=== PATIENT | female | born 1955 | race Caucasian/White ===

== ENCOUNTER → 2018-02-20 15:24 | Outpatient (CLI) | payer MEDICARE, MEDICAID, SELFPAY ==
--- NOTE | 2018-02-20 | DI.CT.S_ITS ---
PROCEDURE: CT LUMBAR SPINE WO CON INDICATIONS: ARTHRODESIS STATUS/LEFT FOOT DROP TECHNIQUE: Noncontrast 3 mm thick sections acquired from the T12 level to the sacrum. Sagittal and coronal reformats were constructed. For radiation dose reduction, the following was used: automated exposure control. COMPARISON: [facility], MR, L-SPINE WITHOUT CONTRAST, 07/26/2016, 12:46. [facility], CT, ABDOMEN/PELVIS WITH CONTRAST, 01/15/2017, 13:34. [facility], CR, T AND L SPINE 2 TO 3 VIEWS, 08/17/2017, 15:00. [facility], CR, T AND L SPINE 6 PLUS VIEWS, 08/16/2017, 9:19. FINDINGS: Image quality: Excellent. Bones: No acute vertebral body compression fractures. No suspicious lytic or blastic bony lesions. Central spinal caliber is of normal overall caliber. No pars defects. Thoracolumbar postoperative changes are seen, extending down to S1. The screws appear well placed. There is lucency seen surrounding the S1 screws. No other findings of hardware failure or loosening can be seen. Vertical fixation rods are seen. Disc spacers are seen at the L1-L2, L2-L3, L3-L4, L4-L5, and the L5-S1 levels. The disc space at L5-S1 protrudes posteriorly and on the right, as on series 5 image 20 and on series 2 image 59. The disc spacers otherwise appear well placed. S-shaped scoliotic curvature is seen. The degree of scoliosis appears improved compared to the prior preoperative abdominal CT. T12-L1: Moderate to severe loss of disc height is seen. Vacuum disc phenomenon is seen at this level. Mild generalized disc bulge is seen. L1-L2: Mild disc bulge is seen. No significant neural foraminal or central canal narrowing are seen. L2-L3: There is mild disc bulge at this level. There is moderate bilateral neural foraminal narrowing. [id number] central canal narrowing is seen. L3-L4: Mild disc bulge is seen at this level. There is mild left-sided and no significant right-sided neural foraminal narrowing seen. Mild central canal narrowing is seen. L4-L5: There is moderate disc bulge. There is moderate right-sided and at least moderate left-sided neural foraminal narrowing seen. Likely extruded disc material can be seen within the left lateral recess, with vacuum disc phenomenon. There is at least moderate central canal narrowing. L5-S1: Likely mild disc bulge. There is moderate to severe right-sided neural foraminal narrowing and mild left-sided neural foraminal narrowing. Moderate central canal narrowing is seen. Soft tissues: No retroperitoneal masses or hematomas. Visualized aorta is normal in caliber. Atherosclerotic calcification is noted. IMPRESSION: Extensive postoperative changes are seen. There is screw loosening seen at S1. The disc spacer at the L5-S1 level protrudes posteriorly and on the right. There is likely disc extrusion seen within the left lateral recess at the L4-L5 level. If it would be helpful for clinical management decision making, please consider a dedicated lumbar MRI for further evaluation (assuming that there is no contraindication). Dictated by: Jorge Giraldo M.D. on 02/20/2018 at 15:26 Approved by: Jorge Giraldo M.D. on 02/20/2018 at 15:34
== END ==
PROVIDERS: Visit Provider Orthopaedic Surgery
DX: M21.372 Foot drop, left foot (principal); T85.698A Other mechanical complication of other specified internal prosthetic devices, implants and grafts, initial encounter; Z98.1 Arthrodesis status
CPT/HCPCS: 72131

== ENCOUNTER → 2018-03-18 13:29 | Outpatient (CLI) | payer MEDICARE, MEDICAID, SELFPAY ==
--- NOTE | 2018-03-18 | DI.MRI.S_ITS ---
PROCEDURE: MR LUMBAR SPINE WO/W CON INDICATIONS: IDIOPATHIC SCOLIOSIS OF LUMBAR REGION TECHNIQUE: Noncontrast sagittal T1 spin echo and T2 fast spin echo, sagittal STIR, axial T1 and T2 fast spin echo through the lumbar spine. In cases with scoliosis, additional coronal T2 fast spin echo may be performed. After the administration of contrast, sagittal and axial T1 spin echo with fat saturation through the lumbar spine. COMPARISON: [facility], , L-SPINE WITHOUT CONTRAST, 07/26/2016, 12:46. [facility], CR, XR LUMBAR SPINE 2 OR 3 VIEWS, 02/11/2018, 14:00. FINDINGS: Image quality: Degraded by metallic and motion artifact. Alignment and curvature: 5 lumbar type vertebral bodies are present by plain film. There is mild rightward curvature of the lower lumbar spine mild leftward curvature of the thoracolumbar junction. There is mild grade 1 retrolisthesis of L1 on L2 and L2 on L3. Marrow: Spinal stabilization hardware is seen from T12-S1. Marrow is suboptimally evaluated secondary to metallic artifact, but as visualized, is of normal overall signal. No acute vertebral body compression fractures. No suspicious marrow enhancement. Spinal cord: Conus medullaris is not well seen secondary to motion artifact Visualized spinal cord demonstrates normal signal, without suspicious enhancement. Paraspinous soft tissues: No paravertebral masses or abnormal enhancement. L1-L2: Disc desiccation and mild diffuse disc bulge. Bilateral facet hypertrophy. Decreased, mild canal stenosis. Mild foraminal stenosis bilaterally is unchanged. L2-L3: Mild disc desiccation and diffuse disc bulge. Bilateral facet hypertrophy. Mild canal stenosis. Mild foraminal stenosis bilaterally. No definite change. L3-L4: Disc desiccation. Bilateral facet hypertrophy. No definite canal, nor foraminal stenosis. L4-L5: Interbody device. Mild residual diffuse disc bulge. Bilateral facet hypertrophy. Decreased, moderate canal stenosis. Decreased, moderate bilateral foraminal stenosis. L5-S1: Interbody device. Bilateral facet hypertrophy. No definite change in mild to moderate canal stenosis. Foramina are not well seen. IMPRESSION: 1. Limited examination secondary to metallic and motion artifact. 2. Status post interval thoracolumbar spinal stabilization surgery. 3. Multilevel degenerative disc and facet disease, causing multilevel canal and foraminal stenoses as described above. No evidence of acute process. Dictated by: Michelle Cerda M.D. on 03/18/2018 at 15:48 Approved by: Michelle Cerda M.D. on 03/18/2018 at 15:53
== END ==
PROVIDERS: PCP Family Medicine; Visit Provider Orthopaedic Surgery
DX: M51.36 Other intervertebral disc degeneration, lumbar region (principal); M41.26 Other idiopathic scoliosis, lumbar region; M48.061 Spinal stenosis, lumbar region without neurogenic claudication; M48.07 Spinal stenosis, lumbosacral region
CPT/HCPCS: 72158; A9579

== ENCOUNTER 2018-05-21 10:43 | Inpatient (IN) | payer MEDICARE, MEDICAID, SELFPAY ==
[2018-05-08 10:56] VITALS: BMI 36.6
[2018-05-21] VITALS (15 sets, daily range): BP systolic 112–171; BP diastolic 61–101; PULSE 72–108; RESP 12–20; TEMP 36.3–36.9; O2SAT 93–98; BMI 36.6
--- NOTE | 2018-05-21 | PATH_ITS ---
[facility] Accession Number: [id number] . 01 Material submitted: . LUMBAR . 01 Clinical history: . FACET CYST . 01 Diagnosis: Lumbar Facet Cyst, Biopsy: Fragments of bone and fibroconnective disc tissue with extensive elastic degenerative changes. Unremarkable marrow also present. Negative for malignancy. MRV/05/27/2018 . 01 Comment: As part of ongoing quality control lead, this case has also been reviewed by Dr. Isaura Patrick, who concurs with the diagnosis. . 01 Electronically signed: . Gardenia Ma MD, Pathologist NPI- [id number] . 01 Gross description: . Received in formalin, labeled lumbar facet cyst, are multiple fragments of pratt-membreno soft tissue (2.2 x 1.5 x 0.4 cm in aggregate). Entirely submitted in cassette A1. ([id number]) /[facility] . 01 Pathologist provided ICD-10: M51.36 . 01 CPT . 573557 Specimen Comment: A duplicate report has been generated due to demographic updates. Performed at: [facility] [address] [place] [address], [place], [place] [id number] MD Krishan Emmanuel MD Phone: [phone]
--- NOTE | 2018-05-21 | DI.RAD.S_ITS ---
PROCEDURE: XR LUMBAR SPINE 2-3V INDICATIONS: L5- S1 LAMINECTOMY TECHNIQUE: 2 views of the lumbar spine were acquired. COMPARISON: [facility], CR, XR LUMBAR SPINE 2 OR 3 VIEWS, 12/05/2017, 13:10. [facility], CR, XR LUMBAR SPINE 2 OR 3 VIEWS, 02/11/2018, 14:00. FINDINGS: Bones: Prior extensive spine fusion devices are again seen with bilateral pedicle screws and vertical fixation rods, and interbody disc prosthesis and cage disc prosthesis. A ractures involving the vertical fixation rods at the L4-5, seen on the frontal projection. Mild malalignment of along the vertical fixation rods bilaterally is present, by a full shaft width. Soft tissues: Overlying bowel gas pattern is normal. No suspicious soft tissue calcifications. IMPRESSION: Extensive prior spine fusion, with newly identified bilateral vertical fixation ana fractures shifted to each laterally, by a full shaft width, at the L4-L5 axial level. Dictated by: Fadi Moe M.D. on 05/21/2018 at 15:40 Approved by: Fadi Moe M.D. on 05/21/2018 at 15:45
[2018-05-21] MEDS: LACTATED RINGERS 1,000 ML 42 ML IV ×3 (11:20→15:32)
--- NOTE | 2018-05-21 12:07 | PM.PREOP ---
Pre-operative Note Interval Note Pre-op Check: Yes History & Physical Reviewed by Physician and Yes Exam Performed Changes: No
--- NOTE | 2018-05-21 12:48 | P.OP_ITS ---
Operative Date/Time/Diagnoses Date of procedure: 05/21/18 Time of procedure: 15:36 Pre-op diagnosis: Intracanal, extradural lumbar facet cyst Lumbar stenosis with radiculopathy Lumbar fusion pseudoarthrosis Post-op diagnosis: same Procedure & Clinicians Procedure: L5-S1 hardware exchange L5-S1 posterior fusion Iliac crest bone graft aspirate Revision left L5-S1 laminectomy with cyst excision Same procedure as scheduled: Yes Indications: 63-year-old female 9 months after an extensive scoliosis fusion. She presented with acute left footdrop and pain imaging showed a large facet cyst as well as nonunion at L5-S1. This felt she would benefit from cyst excision as well as revision of the hardware and refusion. Risks and benefits of surgery discussed appropriate consents obtained. Surgeon: Sincere Hawley Public Relations Representative: Johanna Zamarripa Anesthesia Type: General Operative Notes Findings: none Closure Type: primary Implants & Drains: NuVasive MAS reline Applied: catheter Estimated Blood Loss (mL): 20 Blood products transfused: none Procedure in detail: Patient was brought to the operating room and intubated on the table. They were rolled over on the well-padded prone position on the Earl table. A time-out was performed. Preoperative antibiotics were given. The back was prepped and draped in standard sterile fashion. We went through the bottom of her well-marked left-sided incision. We opened this up 4 cm. We used Bovie to clear around the soft tissue and expose the L4, L5, and S1 screws. We used the ana cutting bur to cut through the ana between L4 and L5. The set screws were then removed. The L5 screw was solid but the S1 was grossly loose. We then placed a blade retractor over the L5 screw. We removed the loose S1 screw over a guidewire. We tapped and then placed a 8.5 mm screw back in the S1 hole with a good fit. This was done with neural monitoring and fluoroscopy. We opened up the retractor blades and cleared off the soft tissue. The gutter was cleared out and the sacral ala and L5 transverse process were decorticated with a bur. We cleared the soft tissue medially and exposed the lamina. We then brought in the microscope. A revision left-sided laminectomy was performed at L5-S1 with a bur and Kerrison rongeurs. There was a large cyst from the L4-5 level down to the L5 foramen. This was carefully dissected off the dura and removed piecemeal until there was no further pressure on the dura. The dura gradually refilled. We could move a ball probe out through the foramen and up underneath the lamina above and everything was opened. Cyst tissue was sent off to pathology. The wound was irrigated. We primed epidural catheter with 8 mL of 0.25% Marcaine and 100 mcg of fentanyl. This was carefully slid up underneath the L4 lamina without resistance. The Tulip head was placed on the screw. A ana was placed into L5 and S1 and locked down. A small stab incision was made over the PSIS. We placed a Jamshidi needle down into the pelvis and aspirated 3 cc of bone marrow and combined this with Osteocel and placed in the posterolateral gutter for the fusion. The wound was irrigated. The fascia was closed. We then injected the epidural catheter without resistance. It was pulled. We then opened up the bottom 4 cm on the right-hand side as I felt should get better stability with a new screw on this side as well. We exposed until we had the screws. Again we cut through the ana between L4 and L5. The ana was removed. The L5 screw felt a little bit loose. We changed out the S1 and L5 screws over guidewires using fluoroscopy and neural monitoring. This was also changed out to an 8.5 mm screw. A new ana was placed and locked down at L5-S1. We also placed bone graft out the posterolateral gutter after decorticating the gutter. The wound was irrigated. The fascia was closed. Vancomycin powder was placed in the wounds. The superficial and skin were closed. A sterile dressing was placed. She was then rolled over, extubated, and brought to recovery with no complications. Complications: none Condition: stable Disposition: PACU Plan for aftercare: Inpatient. Up with therapy.
[2018-05-21] MEDS: CEFAZOLIN 2 GM/100 ML FROZ.PIGGY IV ×2 (12:56→18:41)
--- NOTE | 2018-05-21 13:41 | SUR.OPER ---
Prone on spine table, head in foam head support, padded chest and pelvic supports, gel pad at knees, lower legs supported by pillows; nipples, genitalia and toes free of pressure, arms secured on foam padded arm boards at <90 degrees abduction. Tape over blanket at thigh secured to table.
[2018-05-21] MEDS: SODIUM CHLORIDE 0.9% 1,000 ML, GENTAMICIN 80 MG IRR (13:55)
[2018-05-21] MEDS: BUPIVACAINE 0.5% (PF) VIAL 30 ML INJ (14:00)
[2018-05-21] MEDS: BUPIVACAINE 0.25% (PF) VIAL 30 ML INJ (14:26)
[2018-05-21] MEDS: fentaNYL 100 MCG/2 ML INJ 25 MCG IV (14:31)
[2018-05-21] MEDS: VANCOMYCIN 1,000 MG VIAL 1000 MG TOP (15:28)
[2018-05-21] MEDS: BUPIVACAINE 0.5% W/ EPI (PF) VIAL 30 ML INJ (15:29)
[2018-05-21] MEDS: HYDROMORPHONE 2 MG INJ 0.5 MG IV ×7 (16:10→16:40)
[2018-05-21] MEDS: LORazepam 2 MG/ML SYRINGE 0.25 MG IV ×2 (16:15→16:21)
[2018-05-21] MEDS: LACTATED RINGERS 1,000 ML 125 ML IV (18:02)
--- NOTE | 2018-05-21 19:06 | PC.NURSE ---
PATIENT VERY DROWSEY,1L
--- NOTE | 2018-05-21 19:06 | PC.NURSE ---
DRSG TO BACK CDI,LOG ROLL TO SIDE,IV FLUIDS INFUSING,ANTIBIOTICS INFUSING.FEET SCDS IN PLACE ACTIVE,SLEEPING ON/OFF TAKING ICE/WATER WITHOUT NAUSEA.
[2018-05-21] MEDS: OXYCODONE/ACETAMINOPHEN 5/325 TABLET 2 TAB PO (19:26)
[2018-05-21] MEDS: ALPRAZolam 0.5 MG TABLET PO (19:26)
[2018-05-21] MEDS: hydrOXYzine pamoate 25 MG CAPSULE PO (19:26)
[2018-05-21] MEDS: DOCUSATE 100 MG CAPSULE PO (19:27)
[2018-05-21] MEDS: ATORVASTATIN 20 MG TABLET 80 MG PO (19:27)
[2018-05-21] MEDS: GABAPENTIN 600 MG TABLET PO (19:27)
[2018-05-21] MEDS: SENNOSIDES 8.6 MG TABLET 17.2 MG PO (19:28)
[2018-05-21] MEDS: HYDROXYCHLOROQUINE 200 MG TABLET 400 MG PO (19:29)
[2018-05-22] VITALS (8 sets, daily range): BP systolic 96–144; BP diastolic 55–75; PULSE 70–83; RESP 14–18; TEMP 36.5–36.9; O2SAT 93–97
[2018-05-22] MEDS: CEFAZOLIN 2 GM/100 ML FROZ.PIGGY IV (01:18)
[2018-05-22] MEDS: OXYCODONE/ACETAMINOPHEN 5/325 TABLET 2 TAB PO ×3 (01:26→10:30)
[2018-05-22] MEDS: hydrOXYzine pamoate 25 MG CAPSULE PO ×4 (01:26→22:46)
[2018-05-22] MEDS: LACTATED RINGERS 1,000 ML 125 ML IV (02:12)
[2018-05-22 06:07] LABS: Hematocrit 35.7 % (36-46); Hemoglobin 11.6 g/dL (12.0-16.0)
[2018-05-22] MEDS: CHLORTHALIDONE 25 MG TABLET PO (08:09)
[2018-05-22] MEDS: CHOLECALCIFEROL (VITAMIN D3) 1,000 UNIT TABLET 4000 UNIT PO (08:10)
[2018-05-22] MEDS: CITALOPRAM 20 MG TABLET PO (08:11)
[2018-05-22] MEDS: MELOXICAM 7.5 MG TABLET PO (08:12)
[2018-05-22] MEDS: FLUTICASONE 120 SPRAY/16 GM SPRAY.SUSP NASAL (08:13)
[2018-05-22] MEDS: GABAPENTIN 600 MG TABLET PO ×3 (08:13→20:18)
[2018-05-22] MEDS: predniSONE 2.5 MG TABLET PO (08:14)
[2018-05-22] MEDS: POTASSIUM CHLORIDE 20 MEQ TAB PO (08:15)
[2018-05-22] MEDS: LEFLUNOMIDE 20 MG TABLET PO (08:17)
[2018-05-22] MEDS: METOPROLOL ER 25 MG TABLET PO (08:17)
[2018-05-22] MEDS: LISINOPRIL 5 MG TABLET 2.5 MG PO (08:18)
--- NOTE | 2018-05-22 08:22 | PM.PNPO.1 ---
Subjective Date Patient Seen: 05/22/18 Time Patient Seen: 08:23 Interval history: Patient is postop day 1 status post L5-S1 posterior fusion/lami and hardware exchange by Dr. Hawley. States he is doing well but is having pain in the back area. Currently receiving oxycodone as needed for pain and is about to get a shot of Dilaudid for breakthrough pain. States that she has some numbness in bilateral feet left worse than right. She also has a left footdrop. Exam Vital Signs (past 8 hours): - 05/22/18 05:55 05/22/18 06:04 Temperature 97.7 F Pulse Rate 74 Respiratory Rate 16 Blood Pressure 107/60 Pulse Oximetry 94 96 Oxygen Delivery Method Nasal Cannula Oxygen Flow Rate 0 Narrative Exam Narrative: Patient in bed. Alert orient x3. Dressing clean dry and intact. 5/5 right ankle strength. Left foot can plantar flex but not dorsiflex. Left toe cannot dorsiflex. Numbness bilateral feet. Barahona catheter in. Objective Labs Result Diagrams: 05/22/18 05:31 Labs: Laboratory Results - last 24 hr 05/22/18 05:31 Hgb 11.6 L Hct 35.7 L Assessment & Plan Post-op Postoperative Procedures Operation Date: 05/21/18 12:15 Actual Procedures Side Surgeon p Revision left L5-S1 laminectomy, Revision of screws on left at L5-S1 w/Refusion at this level with bone graft Sincere Hawley MD Postop day 1. Patient mobilized with physical therapy today. She may need a AFO brace to help with foot drop. DC Barahona when more mobile. Continue pain medication as needed. Patient would like to go to [facility] after discharge from the hospital for further therapy and care. She does not have help at home. She went to [facility] after her previous back surgeries. Quality VTE Deep Vein Thrombosis/Pulmonary Embolism Present on Admission: No
--- NOTE | 2018-05-22 08:28 | P.PN_ITS ---
Subjective Date Patient Seen: 05/22/18 Time Patient Seen: 08:23 Interval history: Patient is postop day 1 status post L5-S1 posterior fusion/ lami and hardware exchange by Dr. Hawley. States he is doing well but is having pain in the back area. Currently receiving oxycodone as needed for pain and is about to get a shot of Dilaudid for breakthrough pain. States that she has some numbness in bilateral feet left worse than right. She also has a left footdrop. Exam Vital Signs (past 8 hours): - 05/22/18 05:55 05/22/18 06:04 Temperature 97.7 F Pulse Rate 74 Respiratory Rate 16 Blood Pressure 107/60 Pulse Oximetry 94 96 Oxygen Delivery Method Nasal Cannula Oxygen Flow Rate 0 Narrative Exam Narrative: Patient in bed. Alert orient x3. Dressing clean dry and intact. 5/5 right ankle strength. Left foot can plantar flex but not dorsiflex. Left toe cannot dorsiflex. Numbness bilateral feet. Barahona catheter in. Objective Labs Result Diagrams: 05/22/18 05:31 Labs: Laboratory Results - last 24 hr 05/22/18 05:31 Hgb 11.6 L Hct 35.7 L Assessment & Plan Post-op Postoperative Procedures Operation Date: 05/21/18 12:15 Actual Procedures Side Surgeon p Revision left L5-S1 laminectomy, Revision of screws on left at L5-S1 w/ Refusion at this level with bone graft Sincere Hawley MD Postop day 1. Patient mobilized with physical therapy today. She may need a AFO brace to help with foot drop. DC Barahona when more mobile. Continue pain medication as needed. Patient would like to go to [facility] after discharge from the hospital for further therapy and care. She does not have help at home. She went to [facility] after her previous back surgeries. Quality VTE Deep Vein Thrombosis/Pulmonary Embolism Present on Admission: No
[2018-05-22] MEDS: ALPRAZolam 0.25 MG TABLET 0.5 MG PO ×2 (08:30→22:45)
[2018-05-22] MEDS: HYDROMORPHONE 1 MG INJ 0.5 MG IV (08:39)
--- NOTE | 2018-05-22 09:24 | CM.DPC ---
Referral faxed to [facility] per [place] for sunday D/C
--- NOTE | 2018-05-22 12:05 | CM.DANOTE ---
DCP/Assessment: Reviewed chart. Patient is a 63yr old female admitted [facility] on 05-21-[address] Hawley. PCP is Dr. Irwin Duong. Primary payor is 1)Medicare 2)Medicaid. Met with patient explained CM/SW role. Patient alert and oriented at time of visit. CHILD DAY CARE PROVIDER spoke with Orthopedic team and it is anticipated that patient will need SNF when medically stable. Patient with PT/OT evaluations pending. Patient reports that she resides alone on [address] in [place]. Patient resides on her ex-'s property with other family on property as well. Patient does have some support but feels like she would benefit from SNF stay. Provided patient with SNF choice list and first choice is [facility]. Placed call to Genie with admit and asked MIKA/Ju to fax for review. Patient eligible for SNF on Sunday05-24-18. Orthopedics updated. Patient also needs to qualify per Medicare guidelines. P: [facility] reviewing for acceptance. Anticipate short SNF stay at [facility] prior to returning home when medically stable. KANDIS Pierce Discharge Planning/Care Management CM Discharge Assessment Start: 05/22/18 12:02 Freq: Status: Active Protocol: Document 05/22/18 12:02 [facility] (Rec: 05/22/18 12:05 [facility] [id number]) Discharge Planning Assessment Assigned Radio Mechanic Apprentice KANDIS Pierce Contact Information Florentin Monsalve (son) [phone] Advance Directives? No: Declines further information History Provided By Patient Has Patient been admitted in last 30 No days? Prior Living Arrangements RV Household Members none Type of transporation used prior to Drives own vehicle admit Independent with ADL's Yes Is patient alert and oriented? Yes Needs Assistance With Home Chores / Shopping Caregiver for Another No DME Already Rented / Owned FWW / Walker Cane Patient/Family Preference [facility] Facility Barriers to Discharge No Discharge Plan [facility] Transportation Arrangement Pending need on day of discharge. Referrals Initiated [facility] Medicare Choice List Provided Yes Contact Name/Phone Genie phone# [phone] Has Agency SNF been contacted Yes Whiteboard Updated in Patient Room with Yes name and ext. # of Radio Mechanic Apprentice Review Status In Process Please Provide Date Initial DC 05/22/18 Assessment Was Performed Next Review Type Continued Stay Review Pre-Anesthesia Assessment Start: 05/08/18 10:56 Freq: Status: Complete Protocol: Document 05/08/18 10:56 [facility] (Rec: 05/08/18 11:31 CAB [id number]) Pre-Anesthesia Assessment Patient Information Reviewed Via Phone Assessment Assessment Completed With Patient Primary Care Provider Irwin Duong Seen Specialist in Last 12 Months Yes Specialist Seen Shear Setter Orthopedist Cycle Manager Comment RA Primary Language [employer] Principal Required No Height 157.48 cm Weight 90.718 kg Body Mass Index (BMI) 36.6 Hearing Ability Normal Visual Impairment No Limitations Visual Assist Magnifying Glass Dentition Type Teeth, Natural Present Teeth, Missing Barriers to Learning Memory Other Aids No Comment Impaired memory at times Hx Anesthesia Reactions No Hx Family Anesthesia Reaction No Hx Malignant Hyperthermia No Hx Blood Transfusions No Anesthesia Review Requested No Tech Intern No alcohol intake former Smoking Status Never smoker Tobacco type cigarettes Smoking packs per day 1.5 how long ago did patient quit smoking Quit age 39 Substance Use Type marijuana Comment Pt advised not smoke marijuana 24 hours prior to surgery Pain Present Pain Reported Musculoskeletal Symptoms Abnormal Gait Back Pain Difficulty Walking Joint Pain Muscle Spasms Muscle Weakness Numbness Radiating Pain into Limb Tingling History of Falling (Recent or History of No ) Patient is completely paralyzed or No completely immobile Prosthesis or Orthotic Device Cane Front Wheel Walker Mental Status Oriented to own ability Comment Left foot drop Is patient on oxygen? No Does patient have HICKS/SOB Yes: With asthma flare-up Hx Sleep Apnea No Suspected Sleep Apnea No Currently Taking a Beta Gisella Yes: Metoprolol Can You Climb a Flight of Stairs Without Yes SOB Hx Chest Pain No Hx SOB Yes: With asthma flare-up Hx Syncope or Dizziness No Anti-Coagulant Therapy No Cardiac Testing Yes: ECHO, NUC 11/15 at Hx Pacemaker/ICD No Pacemaker Rep Required? No Cardiac Clearance Received Not Applicable Diet Type At Home Regular dysphagia No Bladder Pattern Nocturia Urinary Catheter Present No Hx Urinary Self Catheterization No Diabetes No: r/t higher dose of prednisone, PCP states does not have Patient No Lactating No Hx Drug Resistant Organism No Presence of External or Internal Medical No Devices Have you traveled outside the [employer] [place] in the last 30 days? Marital Status Lives With none Prior Living Arrangements RV Number of Stairs To Enter/Railing? 4 steps Support System Child/Children Does the Patient Have Assistance After No: Minimal help available Surgery Patient Discharge Plan Description [facility] Facility[facility] Comment Pt lives on [address], minimal help, would like to go to SNF upon discharge Feels Safe in Current Environment Yes Been Physically Hurt or Threatened By a No Person in Current Environment Do you have thoughts of harming yourself None or others? Do you have a plan to hurt yourself or No Plan others? Do You Have Any Spiritual Beliefs That No May Affect Your HC Choices? Do You Have Any Cultural Practices That No May Affect Your HC Choices? Spiritual Referral In-House Coating Machine Feeder Comment Roman Catholic Who Can We Speak to About Patient's Care Family, friends Identifying Code for Release of Patient Declines to issue Information Health Care Proxy/Next of Kin Monique (daughter) Health Care Proxy Emergency Contact Name Monique (daughter), Jeffery Monsalve (Ex-) Emergency Contact Phone Number Monique: [phone] Jeffery: [phone] Advance Directives? No: Declines further information Power of Design Technology Professor No PAC Instructions Durable medical equipment Medications to take/avoid Nasal antibiotic No ETOH/petroleum product on skin DOS NPO Post-op transportation Pre-surgical wash Sturdy shoes/comfortable clothes Do not bring valuables and remove jewelry
--- NOTE | 2018-05-22 12:24 | DIET.PN ---
Low kevin score of 16 suggests skin at risk. Ate all 1st meal. Morbidly obese. Encouraged high protein diet w/One Ensure Enlive daily.
--- NOTE | 2018-05-22 13:01 | PT.IIE ---
Current Diagnoses Pseudomonas (aeruginosa) (mallei) (pseudomallei) as the cause of diseases classified elsewhere (05/21/18) Spinal stenosis, lumbar region with neurogenic claudication (05/21/18) Unspecified fracture of unspecified lumbar vertebra, subsequent encounter for fracture with nonunion (05/21/18) Surgery Performed Operation Date: 05/21/18 12:15 Actual Procedures p Revision left L5-S1 laminectomy, Revision of screws on left at L5-S1 w/Refusion at this level with bone graft - Sincere Hawley MD Surgical History (Last Updated 05/08/18 @ 11:38 by Jodi Snyder RN) History of lumbar fusion (Acute 08/14/17) Hx of cholecystectomy (Acute ~2012) Hx of thyroidectomy (Acute ~1998) Hx of tubal ligation (Acute) Medical History (Last Updated 05/08/18 @ 12:47 by Jodi Snyder RN) Anxiety (Acute) Asthma (Acute) Chronic back pain (Acute) Depression (Acute) Easy bruisability (Acute) Hyperlipidemia (Acute) Hypothyroidism (Acute) Impaired memory (Acute) Polycythemia vera (Acute) Sciatica (Acute) Physical Therapy Inpatient Evaluation/Re-Eval M1 PT/OT-IP Prior Functional Status Start: 05/22/18 12:37 Freq: NEEDED Status: Active Protocol: Document 05/22/18 09:50 AMB (Rec: 05/22/18 12:59 AMB [email or web address]) Medical Review Prior Functional Status Medical History Reviewed Yes Mobility and Gait Pt used 4WW in the community, SPC and furniture walked at home. Pt had L foot drop prior to this surgery after her scoliosis surgery. Social History Household Members none Living Arrangements RV Number of Stairs To Enter/Railing? 4 steps to enter with a railing, 3 steps from main living to bathroom Home Equipment Four Wheel Walker Straight Cane Additional Social History Comment Pt lives alone in a 5th wheel on her ex-'s property. He would be able to bring her groceries, drive her to MD appointments, but she needs to be able to dress/ bathe herself independently. M2 PT-IP Current Condition Start: 05/22/18 12:37 Freq: NEEDED Status: Active Protocol: Document 05/22/18 09:50 AMB (Rec: 05/22/18 12:59 AMB [email or web address]) Physical Therapy Current Condition Current Condition Evaluation Date 05/22/18 Treatment Diagnosis L5S1 posterior fusion/lami Onset Date 05/21/18 Precautions Lumbar Precautions Log Roll No Twisting Limit Bending Lifting Restriction of 10 lbs Gait Belt above Incisional Area M3 PT-IP Subjective Start: 05/22/18 12:37 Freq: NEEDED Status: Active Protocol: Document 05/22/18 09:50 AMB (Rec: 05/22/18 12:59 AMB [email or web address]) Subjective Physical Therapy Visit Type Type Initial Evaluation Visit Start Time 09:50 Visit Stop Time 10:25 Total Visit Minutes 35 Number of SEALS ENGRAVER Visits 0 Physical Therapy Visit Comments Patient Comments Pt has left low back pain but is willing to get up and mobilize Therapy Pain Assessment Pain When Pain Assessed At Rest Pain Present Pain Present Pain Reported Location Back Intensity 5 Scale Used Numeric (1 - 10) M4 PT-IP Mobility and Gait Start: 05/22/18 12:37 Freq: NEEDED Status: Active Protocol: Document 05/22/18 09:50 AMB (Rec: 05/22/18 12:59 AMB [email or web address]) PT-Bed Mobility Assessment Rolling Type of Rolling Log Rolling Level of Assist Minimal Assistance Supine to Sit Supine to Sit Minimal Assistance Sit to Supine Sit to Supine Minimal Assistance PT-Transfer Assessment Sit to and From Stand Sit to and from Stand Contact Guard Assistance Use of Upper Extremities Equipment Transfer Assistive Device Bed Rail Gait Belt Front Wheeled Walker Transfers Transfer Destination Bed Toilet Transfer Technique Stand Step Pivot Transfer Ability Level of Assist Standby Assistance Comments Mobility Comments Verbal cues for precautions/ body mechanics Gait Assessment Gait Gait Assistance Required: Contact Guard Assist Distance (Feet) 10 Assistive Devices Assistive Device Front Wheeled Walker Gait Deviations General Gait Pattern Antalgic Decreased Stride Length Decreased Feet Clearance Flexed Trunk Lateral Trunk Lean Step-to Gait Factors Limiting Gait Function Factors Limiting Gait Function Decreased Sensation Decreased Strength Pain Poor Balance Comments Gait Comments Pt with forward trunk lean, left drop foot, slow careful gait BP 117/72 HR 85 at rest, denies lightheadedness/ dizziness/nausea with gait. Pain did increase to 7/10 with gait. PT-Balance Assessment Sitting Balance and Reactions Static Sitting Balance Ability Good Dynamic Sitting Balance Ability Good Standing Balance and Reactions Static Standing Balance Ability Fair Dynamic Standing Balance Ability Poor M5 PT-IP Objective Assessments Start: 05/22/18 12:37 Freq: NEEDED Status: Active Protocol: Document 05/22/18 09:50 AMB (Rec: 05/22/18 12:59 AMB [email or web address]) Orientation Orientation/Cognition Level of Alertness Alert Strength Lower Extremity Strength Assessment Left Impaired Comments Strength Comments absent dorsiflexion, pt can plantarflex from neutral, hip flexion less than 2/5 Sensation Assessment Sensation Gross Sensation Left LE Impaired M6 PT-IP Treatment Start: 05/22/18 12:37 Freq: NEEDED Status: Active Protocol: Document 05/22/18 09:50 AMB (Rec: 05/22/18 12:59 AMB [email or web address]) Physical Therapy Treatment Exercises Exercises Ankle Pumps Education Education Provided Precautions Safety M7 PT-IP Assessment and Plan Start: 05/22/18 12:37 Freq: NEEDED Status: Active Protocol: Document 05/22/18 09:50 AMB (Rec: 05/22/18 12:59 AMB [email or web address]) PT Summary Assessment and Plan Potential Rehabilitation Potential Good Status of Condition at Evaluation Evolving Summary Impairments Pain Strength Balance Sensation Bed Mobility Transfers Gait Activity Tolerance Assessment Summary The patient is s/p L5S1 fusion and laminectomy. She developed left foot drop after scoliosis surgery with post op infection requiring IV antibiotics. She required a long SNF stay after that surgery, and will require a SNF stay after this surgery as well considering the number of stairs in her 5th wheel, and that she lives alone. Today she did well, but pain and left LE weakness prior to surgery will limit the speed of her recovery. Goals Bed Mobility Goal Standby Assistance Transfer Goal Independent Gait Goal Standby Assistance Gait Distance 100' Other Goals 4 stairs with 1 rail with SBA Days to Meet Goals 4 Frequency of Treatment Frequency Of Treatment Twice a Day Treatment Plan Physical Therapy Treatment Plan Bed Mobility Training Transfer Training Gait Training Therapeutic Exercise Balance Retraining Post Op Education Hot or Cold Pack Neuromuscular Re-ed Other Recommendations and Next Treatment Progress bed mobility and gait Focus training with focus on good body mechanics Recommendations To Nursing Amount of Assist Needed 1 Person Assist Discharge Recommendations PT Discharge Recommendations SNF Rehab
--- NOTE | 2018-05-22 14:12 | PC.NURSE ---
Dressings lower back surgical site changed this morning to cover sites due to 100% sero-sanguineous drainage saturation.
[2018-05-22] MEDS: HYDROMORPHONE 2 MG TABLET PO (14:16)
--- NOTE | 2018-05-22 14:27 | OT.IP.EVAL ---
Current Diagnoses Pseudomonas (aeruginosa) (mallei) (pseudomallei) as the cause of diseases classified elsewhere (05/21/18) Spinal stenosis, lumbar region with neurogenic claudication (05/21/18) Unspecified fracture of unspecified lumbar vertebra, subsequent encounter for fracture with nonunion (05/21/18) Surgery Performed Operation Date: 05/21/18 12:15 Actual Procedures p Revision left L5-S1 laminectomy, Revision of screws on left at L5-S1 w/Refusion at this level with bone graft - Sincere Hawley MD Past Medical History (Last Updated 05/08/18 @ 12:47 by Jodi Snyder, DIANNE) Anxiety (Acute) Asthma (Acute) Chronic back pain (Acute) Depression (Acute) Easy bruisability (Acute) Hyperlipidemia (Acute) Hypothyroidism (Acute) Impaired memory (Acute) Polycythemia vera (Acute) Sciatica (Acute) Surgical History (Last Updated 05/08/18 @ 11:38 by Jodi Snyder RN) History of lumbar fusion (Acute 08/14/17) Hx of cholecystectomy (Acute ~2012) Hx of thyroidectomy (Acute ~1998) Hx of tubal ligation (Acute) Occupational Therapy Inpatient Evaluation/Re-Eval M1 PT/OT-IP Prior Functional Status Start: 05/22/18 12:37 Freq: NEEDED Status: Active Protocol: Document 05/22/18 14:27 BIBIANA (Rec: 05/22/18 16:51 BIBIANA [email or web address]) Medical Review Prior Functional Status Medical History Reviewed Yes Diet/Fluid Consistency Regular Communication WNL Mobility and Gait Pt used 4WW in the community, SPC and furniture walked in home. Pt has L foot drop that developed after her previous scoliosis surgery in 08/2017. Activities of Daily Living and IADL's Pt was modified independent with all self care using lower body dressing equipt and bathroom safety equipt. Prior Functional Level (Other details) Pt's lives on [address] on ex 's property. Ex and friend assist with grocery shopping and transport. Two sons also live on property and assist with trash removal and propane fillup to pt's 5th wheel trailer. Social History Household Members none Living Arrangements RV Number of Stairs To Enter/Railing? 4 stairs to enter with B rails, and 2-3 stairs up to bedroom area and 2-3 stairs up to bathroom level Home Environment High Toilet Tub/Shower Home Equipment Four Wheel Walker Straight Cane Shower Seat without Backrest Hand Held Shower Long Handled Sponge Long Handled Shoe Horn Exercise Physiology Professor Sock Aid Employment Status Retired Additional Social History Comment Pt lives in 30 ft 5th wheel. M2 OT-IP Current Condition Start: 05/22/18 16:34 Freq: Status: Active Protocol: Document 05/22/18 14:27 PJM (Rec: 05/22/18 16:51 PJM [id number]) Occupational Therapy Current Condition Current Condition Evaluation Date 05/22/18 Treatment Diagnosis decreased self care, mobility s/p L5-S1 hardware exchange, PLIF, cyst excision Diagnosis Onset Date 05/21/18 Post Operative Precautions Lumbar Precautions Log Roll No Twisting Limit Bending Lifting Restriction of 10 lbs Gait Belt above Incisional Area M3 OT- IP Subjective and Pain Start: 05/22/18 16:34 Freq: Status: Active Protocol: Document 05/22/18 14:27 PJM (Rec: 05/22/18 16:51 PJM [email or web address]) OT- Subjective Occupational Therapy Visit Type Type Initial Evaluation Visit Start Time 14:25 Visit Stop Time 14:27 Total Visit Minutes 22 Occupational Therapy Visit Comments Patient Comments I think I need to go to rehab because I have to do a lot of stairs and the grab handles by bedroom and bathroom stairs are hard to use when i am going up. Patient/Caregiver Goals to go home when stronger OT Pain Assessment Pain When Pain Assessed After Treatment Pain Present Pain Present Pain Reported Location Back Intensity 6 Scale Used Numeric (1 - 10) Description Aching Acute M4 OT- IP ADL's Start: 05/22/18 16:34 Freq: Status: Active Protocol: Document 05/22/18 14:27 PJM (Rec: 05/22/18 16:51 PJM [email or web address]) OT [id number] General Evaluation Self-Feeding Ability Independent OT ADL-Grooming General Evaluation Grooming Ability Standby Assistance Areas Needing Assistance Retrieving/Set-up of Grooming Items Comments OT Grooming Comments after set up in bed OT ADL-Oral Care General Eval Oral Care Ability Standby Assistance Areas of Assistance Retrieving/Set-Up of Items Devices Oral Care Devices Toothbrush Comments Oral Care Comments after set up in bed OT ADL-Dressing General Eval Upper Body Dressing Ability Minimal Assistance Lower Body Dressing Ability Maximum Assistance Assistive Devices Dressing Assistive Devices Long Handled Shoe Horn Exercise Physiology Professor Sock Aid Comments OT Dressing Comments Pt needs max assist without AED. Pt states she still has sports manager, sock aid and long shoe horn from last surgery but did not bring them with her. OT ADL-Toileting General Evaluation Toileting Ability Total Assistance Areas Needing Assistance Empty Catheter or Colostomy Comments OT Toileting Comments pt still has garcia in place OT ADL-Bathing Comments OT Bathing Comments to be assessed as activity tolerance improves M5 OT- IP IADL's Start: 05/22/18 16:34 Freq: Status: Active Protocol: Document 05/22/18 14:27 PJM (Rec: 05/22/18 16:51 [facility] [email or web address]) OT-Instrumental Activities of Daily Living Deficits IADL Deficits Identified Deficits Home Safety Awareness Awareness of Need for Assistance at Home Good Awareness Ability to Problem Solve Emergency Able to Problem Solve Situations Medication Management Medication Management No Deficits Identified Money Management Money Management No Deficits Identified Meal Preparation Meal Preparation Caregiver Provides Assist Meal Preparation Comments pt needs assist at present due to low activity tolerance and decreased functional mobility Breaster Breaster Caregiver Provides Assist Breaster Comments pt needs assist at present due to low activity tolerance and decreased functional mobility Driving Driving Caregiver Provides Assist Driving Comments family, friends assist M6 OT- IP Functional Cognition Start: 05/22/18 16:34 Freq: Status: Active Protocol: Document 05/22/18 14:27 PJM (Rec: 05/22/18 16:51 [facility] [email or web address]) Cognitive Factors Limiting Selfcare Function Cognitive Ability Level of Alertness Alert Patient Orientation Name Age Birthday Month Date Year Day of Week Place Situation Attention Span Ability Capable of Focused Attention Ability to Follow Commands Able to Follow One Step Commands Memory Description No Deficits Noted Safety Awareness No Deficits Noted Problem Solving Ability No deficits Noted Cognitive Comments Cognitive Assessment Comments Pt alert and oriented and recalls precautions. OT- Vision and Hearing OT- Vision Assessment Visual Acuity WFL Glasses For Reading Vision Assessment Comments Pt denies any recent changes M7 OT- IP Mobility and Balance Start: 05/22/18 16:34 Freq: Status: Active Protocol: Document 05/22/18 14:27 PJM (Rec: 05/22/18 16:51 [facility] [email or web address]) OT-Transfer Assessment Comments Mobility Comments pt declined OOB this session due to pain level and fatigue OT- Gait Assessment Comments Gait Ability Comments see P.T. notes OT- Balance Assessment Comments Other Balance Tests/Deviations/Treatment see P.T. notes : M8 OT- IP Objective Assessments Start: 05/22/18 16:34 Freq: Status: Active Protocol: Document 05/22/18 14:27 PJM (Rec: 05/22/18 16:51 PJM [email or web address]) OT Gross Range of Motion Upper Extremity Range of Motion Assessment Within Functional Limits OT Strength Upper Extremity Strength Assessment Within Functional Limits OT- Coordination Assessment Comments Coordination Comments BUE WFL OT-Muscle Tone Assessment Muscle Tone WNL Yes OT Sensation Assessment Comments Summary Comments BUE WNL M9 OT- IP Assessment and Plan Start: 05/22/18 16:34 Freq: Status: Active Protocol: Document 05/22/18 14:27 PJM (Rec: 05/22/18 16:51 PJM [email or web address]) OT Summary Assessment and Plan Potential Rehabilitation Potential Good Analytic Complexity at Evaluation Low Summary OT Impairments Pain Strength Balance Functional Mobility Grooming Dressing Toileting Bathing Toilet Transfers Shower Transfers Assessment Summary Low complexity OT assessment completed with emphasis on self care skills after recent lumbar surgery. Pt currently has performance deficits in activity tolerance, functional mobility, standing grooming, lower body dressing, bathing and toileting, as well as light IADLS. Pt lives alone in 5th wheel with multiple interior/exterior stairs and home is too small to allow use of FWW. Pt not safe to d/c home at this time, but is motivated to do so when stronger and able to ambulate with cane. Recommend short term SNF at d/c for subacute rehab services. Goals Grooming Goal Standby Assistance Dressing Goal Minimal Assistance Long Handled Shoe Horn Exercise Physiology Professor Sock Aid Toileting Goal Standby Assistance Bathing Goal Minimal Assistance Toilet Transfer Goal Contact Guard Assistance Shower Transfer Goal Contact Guard Assistance Patient/Caregiver Education Goal Demonstrate Post-Op Precautions Demonstrate Energy Conservation and Pacing OT-Other Goals Grooming to be done standing at sink with good body mechanics. Days to Meet Goals 3 Frequency of Treatment Frequency Of Treatment Once a Day Treatment Plan OT Treatment Plan ADL Training Functional Mobility Patient/Family Education Discharge Planning Discharge Recommendations OT Discharge Recommendations SNF Rehab
--- NOTE | 2018-05-22 16:21 | PT.IPTN ---
Current Diagnoses Pseudomonas (aeruginosa) (mallei) (pseudomallei) as the cause of diseases classified elsewhere (05/21/18) Spinal stenosis, lumbar region with neurogenic claudication (05/21/18) Unspecified fracture of unspecified lumbar vertebra, subsequent encounter for fracture with nonunion (05/21/18) Surgery Performed Operation Date: 05/21/18 12:15 Actual Procedures p Revision left L5-S1 laminectomy, Revision of screws on left at L5-S1 w/Refusion at this level with bone graft - Sincere Hawley MD Physical Therapy Treatment Note M2 PT-IP Current Condition Start: 05/22/18 12:37 Freq: NEEDED Status: Active Protocol: Document 05/22/18 09:50 AMB (Rec: 05/22/18 12:59 AMB [email or web address]) Physical Therapy Current Condition Current Condition Evaluation Date 05/22/18 Treatment Diagnosis L5S1 posterior fusion/lami Onset Date 05/21/18 Precautions Lumbar Precautions Log Roll No Twisting Limit Bending Lifting Restriction of 10 lbs Gait Belt above Incisional Area M3 PT-IP Subjective Start: 05/22/18 12:37 Freq: NEEDED Status: Active Protocol: Document 05/22/18 16:13 SA (Rec: 05/22/18 16:21 SA [id number]) Subjective Physical Therapy Visit Type Type Treatment Note Visit Start Time 15:52 Visit Stop Time 16:14 Total Visit Minutes 22 Number of RN BURN Visits 1 Physical Therapy Visit Comments Patient Comments Pt resting but willing to get up for PT. Has pain c/o of L low back/buttock pain. Patient Goals d/c to SNF for a few days then d/c home on [address]. Therapy Pain Assessment Pain When Pain Assessed During Mobility Pain Present Pain Present Pain Reported Location Back Intensity 6 Scale Used Numeric (1 - 10) Pain Management Techniques Apply Cold Re-positioning Timing of Activity with Medications M4 PT-IP Mobility and Gait Start: 05/22/18 12:37 Freq: NEEDED Status: Active Protocol: Document 05/22/18 16:13 SA (Rec: 05/22/18 16:21 SA [id number]) PT-Bed Mobility Assessment Rolling Type of Rolling Log Rolling Level of Assist Contact Guard Assistance Supine to Sit Supine to Sit Contact Guard Assistance Sit to Supine Sit to Supine Contact Guard Assistance Scooting Scooting to Edge of Bed Minimal Assistance PT-Transfer Assessment Sit to and From Stand Sit to and from Stand Contact Guard Assistance Use of Upper Extremities Equipment Transfer Assistive Device Bed Rail Gait Belt Front Wheeled Walker Transfers Transfer Destination Bed Transfer Technique Stand Step Pivot Transfer Ability Level of Assist Standby Assistance Comments Mobility Comments Review of spinal precautions, cues for upright posture and safety. Gait Assessment Gait Gait Assistance Required: Contact Guard Assist Distance (Feet) 18 Assistive Devices Assistive Device Front Wheeled Walker Gait Deviations General Gait Pattern Antalgic Decreased Stride Length Decreased Feet Clearance Flexed Trunk Lateral Trunk Lean Step-to Gait Factors Limiting Gait Function Factors Limiting Gait Function Decreased Sensation Decreased Strength Pain Poor Balance Comments Gait Comments Pt without c/o of dizziness. BP at 124/70 seated at EOB. L drop foot and slow gait. M5 PT-IP Objective Assessments Start: 05/22/18 12:37 Freq: NEEDED Status: Active Protocol: Document 05/22/18 09:50 AMB (Rec: 05/22/18 12:59 AMB [email or web address]) Orientation Orientation/Cognition Level of Alertness Alert Strength Lower Extremity Strength Assessment Left Impaired Comments Strength Comments absent dorsiflexion, pt can plantarflex from neutral, hip flexion less than 2/5 Sensation Assessment Sensation Gross Sensation Left LE Impaired M6 PT-IP Treatment Start: 05/22/18 12:37 Freq: NEEDED Status: Active Protocol: Document 05/22/18 16:13 SA (Rec: 05/22/18 16:21 SA [id number]) Physical Therapy Treatment Exercises Exercises Ankle Pumps Gluteal Sets Quad Sets Education Education Provided Precautions Safety M7 PT-IP Assessment and Plan Start: 05/22/18 12:37 Freq: NEEDED Status: Active Protocol: Document 05/22/18 16:13 SA (Rec: 05/22/18 16:21 [id number]) PT Summary Assessment and Plan Potential Rehabilitation Potential Good Status of Condition at Evaluation Evolving Summary Impairments Pain Strength Balance Sensation Bed Mobility Transfers Gait Activity Tolerance Assessment Summary Pt citing L buttock pain as 6/ 1 wit ambulation and 2/10 at rest. Plan to eventually d/c home on [address] where she lives in 5th wheel with stairs to enter. Frequency of Treatment Frequency Of Treatment Twice a Day Recommendations To Nursing Amount of Assist Needed 1 Person Assist Discharge Recommendations PT Discharge Recommendations SNF Rehab
[2018-05-22] MEDS: HYDROMORPHONE 2 MG TABLET 4 MG PO ×3 (17:05→22:46)
[2018-05-22] MEDS: HYDROXYCHLOROQUINE 200 MG TABLET 400 MG PO (17:06)
[2018-05-22] MEDS: DOCUSATE 100 MG CAPSULE PO (20:18)
[2018-05-22] MEDS: ATORVASTATIN 20 MG TABLET 80 MG PO (20:18)
[2018-05-22] MEDS: SENNOSIDES 8.6 MG TABLET 17.2 MG PO (20:18)
[2018-05-23] VITALS (7 sets, daily range): BP systolic 105–130; BP diastolic 53–70; PULSE 66–73; RESP 16–17; TEMP 36.2–37.1; O2SAT 92–97
[2018-05-23] MEDS: HYDROMORPHONE 2 MG TABLET 4 MG PO ×6 (06:46→21:42)
--- NOTE | 2018-05-23 07:05 | PC.NURSE ---
garcia removed at 0700, pt tolerated well.
--- NOTE | 2018-05-23 08:12 | PM.PNPO.1 ---
Subjective Date Patient Seen: 05/23/18 Time Patient Seen: 08:12 Interval history: She is doing well. Most the pain is in the left lower back but still a little bit going down the left leg. Left leg is numb and still weak. Exam Vital Signs (past 8 hours): - 05/23/18 05:50 Temperature 98.0 F Pulse Rate 66 Respiratory Rate 16 Blood Pressure 115/68 Pulse Oximetry 94 Fraction of Inspired Oxygen 21 Oxygen Delivery Method Room Air Oxygen Flow Rate 0 Const Orientation: alert and oriented x3 Back/Spine/Pelvis Other: Moderate dry drainage on dressing. 5/5 motor both lower extremities except for unchanged left footdrop with minimal EHL/AT Objective Labs Result Diagrams: 05/22/18 05:31 Assessment & Plan Post-op Postoperative Procedures Operation Date: 05/21/18 12:15 Actual Procedures Side Surgeon p Revision left L5-S1 laminectomy, Revision of screws on left at L5-S1 w/Refusion at this level with bone graft Sincere Hawley MD She is doing well recovering from her most recent surgery. I explained her that the foot drop is probably going to take a long time to come back and may still have some residual weakness. When we did her neuro monitoring at the time of surgery, there was no signal in the twitch test on the left but she had full signal on the right, which meant that that nerve signal was completely blocked. Continue with mobilization with therapy. Discharge to retirement tomorrow. Quality VTE Deep Vein Thrombosis/Pulmonary Embolism Present on Admission: No
[2018-05-23] MEDS: POTASSIUM CHLORIDE 20 MEQ TAB PO (09:30)
[2018-05-23] MEDS: CHLORTHALIDONE 25 MG TABLET PO (09:30)
[2018-05-23] MEDS: CHOLECALCIFEROL (VITAMIN D3) 1,000 UNIT TABLET 4000 UNIT PO (09:30)
[2018-05-23] MEDS: predniSONE 2.5 MG TABLET PO (09:30)
[2018-05-23] MEDS: METOPROLOL ER 25 MG TABLET PO (09:30)
[2018-05-23] MEDS: MELOXICAM 7.5 MG TABLET PO (09:30)
[2018-05-23] MEDS: OXYMETAZOLINE NASAL SPRAY 15 ML 2 SPRAYS NASAL (09:30)
[2018-05-23] MEDS: ALPRAZolam 0.25 MG TABLET 0.5 MG PO ×2 (09:30→21:42)
[2018-05-23] MEDS: LISINOPRIL 5 MG TABLET 2.5 MG PO (09:31)
[2018-05-23] MEDS: CITALOPRAM 20 MG TABLET PO (09:31)
[2018-05-23] MEDS: GABAPENTIN 600 MG TABLET PO ×3 (09:31→21:42)
[2018-05-23] MEDS: LEFLUNOMIDE 20 MG TABLET PO (09:31)
[2018-05-23] MEDS: hydrOXYzine pamoate 25 MG CAPSULE PO ×2 (09:32→18:48)
--- NOTE | 2018-05-23 10:52 | CM.DPC ---
DCP/continued: Received notification this AM from Dr. Hawley that patient most likely will be medically stable for d/c in AM on 05-24-18. Met with patient to confirm plan. Patient confirms that she would like to go to [facility]. MAYONNAISE MIXER placed call Genie with admit at [facility] and she confirms that they can accept tomorrow. PASRR completed. MAYONNAISE MIXER notified Genie that patient most likely will have discharge orders in AM. Genie will tentatively set up transport for around 11:00AM. CM team to f/u in AM. P: [facility] tomorrow if medically stable. KANDIS Pierce Discharge Planning/Care Management CM Discharge Assessment Start: 05/22/18 12:02 Freq: Status: Active Protocol: Document 05/22/18 12:02 KJS (Rec: 05/22/18 12:05 KJS [id number]) Discharge Planning Assessment Assigned Transportation Technician KANDIS Pierce Contact Information Florentin Monsalve (son) [phone] Advance Directives? No: Declines further information History Provided By Patient Has Patient been admitted in last 30 No days? Prior Living Arrangements RV Household Members none Type of transporation used prior to Drives own vehicle admit Independent with ADL's Yes Is patient alert and oriented? Yes Needs Assistance With Home Chores / Shopping Caregiver for Another No DME Already Rented / Owned FWW / Walker Cane Patient/Family Preference Alf Facility Barriers to Discharge No Discharge Plan Alf Facility Transportation Arrangement Pending need on day of discharge. Referrals Initiated Alf Medicare Choice List Provided Yes Contact Name/Phone Genie phone# [phone] Has Agency SNF been contacted Yes Whiteboard Updated in Patient Room with Yes name and ext. # of Transportation Technician Review Status In Process Please Provide Date Initial DC 05/22/18 Assessment Was Performed Next Review Type Continued Stay Review Document 05/23/18 10:52 KJS (Rec: 05/23/18 10:52 KJS [id number]) Discharge Planning Assessment Assigned Transportation Technician KANDIS Pierce Contact Information Florentin Monsalve (son) Advance Directives? No: Declines further information History Provided By Patient Has Patient been admitted in last 30 No days? Prior Living Arrangements RV Household Members none Type of transporation used prior to Drives own vehicle admit Independent with ADL's Yes Is patient alert and oriented? Yes Needs Assistance With Home Chores / Shopping Caregiver for Another No DME Already Rented / Owned FWW / Walker Cane Patient/Family Preference Alf Facility Barriers to Discharge No Discharge Plan Alf Facility Transportation Arrangement Pending need on day of discharge. Referrals Initiated Alf Medicare Choice List Provided Yes Contact Name/Phone Genie phone# [phone] Has Agency SNF been contacted Yes Whiteboard Updated in Patient Room with Yes name and ext. # of Transportation Technician Review Status In Process Please Provide Date Initial DC 05/22/18 Assessment Was Performed Next Review Type Continued Stay Review Pre-Anesthesia Assessment Start: 05/08/18 10:56 Freq: Status: Complete Protocol: Document 05/08/18 10:56 CAB (Rec: 05/08/18 11:31 CAB [id number]) Pre-Anesthesia Assessment Patient Information Reviewed Via Phone Assessment Assessment Completed With Patient Primary Care Provider Irwin Duong Seen Specialist in Last 12 Months Yes Specialist Seen Foil Operator Orthopedist Audio Visual Collections Coordinator Comment RA Primary Language Puerto Rican Accountant Assistant Required No Height 157.48 cm Weight 90.718 kg Body Mass Index (BMI) 36.6 Hearing Ability Normal Visual Impairment No Limitations Visual Assist Magnifying Glass Dentition Type Teeth, Natural Present Teeth, Missing Barriers to Learning Memory Other Aids No Comment Impaired memory at times Hx Anesthesia Reactions No Hx Family Anesthesia Reaction No Hx Malignant Hyperthermia No Hx Blood Transfusions No Anesthesia Review Requested No Florist'S Decorator No alcohol intake former Smoking Status Never smoker Tobacco type cigarettes Smoking packs per day 1.5 how long ago did patient quit smoking Quit age 39 Substance Use Type marijuana Comment Pt advised not smoke marijuana 24 hours prior to surgery Pain Present Pain Reported Musculoskeletal Symptoms Abnormal Gait Back Pain Difficulty Walking Joint Pain Muscle Spasms Muscle Weakness Numbness Radiating Pain into Limb Tingling History of Falling (Recent or History of No ) Patient is completely paralyzed or No completely immobile Prosthesis or Orthotic Device Cane Front Wheel Walker Mental Status Oriented to own ability Comment Left foot drop Is patient on oxygen? No Does patient have HICKS/SOB Yes: With asthma flare-up Hx Sleep Apnea No Suspected Sleep Apnea No Currently Taking a Beta Gisella Yes: Metoprolol Can You Climb a Flight of Stairs Without Yes SOB Hx Chest Pain No Hx SOB Yes: With asthma flare-up Hx Syncope or Dizziness No Anti-Coagulant Therapy No Cardiac Testing Yes: ECHO, NUC 11/15 at Hx Pacemaker/ICD No Pacemaker Rep Required? No Cardiac Clearance Received Not Applicable Diet Type At Home Regular dysphagia No Bladder Pattern Nocturia Urinary Catheter Present No Hx Urinary Self Catheterization No Diabetes No: r/t higher dose of prednisone, PCP states does not have Patient No Lactating No Hx Drug Resistant Organism No Presence of External or Internal Medical No Devices Have you traveled outside the [facility] States in the last 30 days? Marital Status Lives With none Prior Living Arrangements RV Number of Stairs To Enter/Railing? 4 steps Support System Child/Children Does the Patient Have Assistance After No: Minimal help available Surgery Patient Discharge Plan Description Alf Facility/Rehab Comment Pt lives on [place], minimal help, would like to go to SNF upon discharge Feels Safe in Current Environment Yes Been Physically Hurt or Threatened By a No Person in Current Environment Do you have thoughts of harming yourself None or others? Do you have a plan to hurt yourself or No Plan others? Do You Have Any Spiritual Beliefs That No May Affect Your HC Choices? Do You Have Any Cultural Practices That No May Affect Your HC Choices? Spiritual Referral In-House Radio Repairer Comment Dev Who Can We Speak to About Patient's Care Family, friends Identifying Code for Release of Patient Declines to issue Information Health Care Proxy/Next of Kin Monique (daughter) Health Care Proxy Emergency Contact Name Monique (daughter), Jeffery Monsalve (Ex-) Emergency Contact Phone Number Monique: [phone] Jeffery: [phone] Advance Directives? No: Declines further information Power of Tool Engineer No PAC Instructions Durable medical equipment Medications to take/avoid Nasal antibiotic No ETOH/petroleum product on skin DOS NPO Post-op transportation Pre-surgical wash Sturdy shoes/comfortable clothes Do not bring valuables and remove jewelry
--- NOTE | 2018-05-23 11:47 | PT.IPTN ---
Current Diagnoses Pseudomonas (aeruginosa) (mallei) (pseudomallei) as the cause of diseases classified elsewhere (05/21/18) Spinal stenosis, lumbar region with neurogenic claudication (05/21/18) Unspecified fracture of unspecified lumbar vertebra, subsequent encounter for fracture with nonunion (05/21/18) Surgery Performed Operation Date: 05/21/18 12:15 Actual Procedures p Revision left L5-S1 laminectomy, Revision of screws on left at L5-S1 w/Refusion at this level with bone graft - Sincere Hawley MD Physical Therapy Treatment Note M2 PT-IP Current Condition Start: 05/22/18 12:37 Freq: NEEDED Status: Active Protocol: Document 05/22/18 09:50 AMB (Rec: 05/22/18 12:59 AMB [email or web address]) Physical Therapy Current Condition Current Condition Evaluation Date 05/22/18 Treatment Diagnosis L5S1 posterior fusion/lami Onset Date 05/21/18 Precautions Lumbar Precautions Log Roll No Twisting Limit Bending Lifting Restriction of 10 lbs Gait Belt above Incisional Area M3 PT-IP Subjective Start: 05/22/18 12:37 Freq: NEEDED Status: Active Protocol: Document 05/23/18 09:00 AMB (Rec: 05/23/18 11:47 AMB [id number]) Subjective Physical Therapy Visit Type Type Treatment Note Visit Start Time 09:00 Visit Stop Time 09:30 Total Visit Minutes 30 Number of WINDOWS SYSTEM ADMIN Visits 0 Physical Therapy Visit Comments Patient Comments Pt resting in bed, but willing to get up to bathroom. Therapy Pain Assessment Pain When Pain Assessed During Mobility Pain Present Pain Present Pain Reported Location Back Intensity 9 Scale Used Numeric (1 - 10) Pain Management Techniques Re-positioning Timing of Activity with Medications M4 PT-IP Mobility and Gait Start: 05/22/18 12:37 Freq: NEEDED Status: Active Protocol: Document 05/23/18 09:00 AMB (Rec: 05/23/18 11:47 AMB [id number]) PT-Bed Mobility Assessment Rolling Type of Rolling Log Rolling Level of Assist Contact Guard Assistance Supine to Sit Supine to Sit Contact Guard Assistance Sit to Supine Sit to Supine Contact Guard Assistance PT-Transfer Assessment Sit to and From Stand Sit to and from Stand Contact Guard Assistance Use of Upper Extremities Equipment Transfer Assistive Device Bed Rail Gait Belt Front Wheeled Walker Transfers Transfer Destination Bed Toilet Transfer Technique Stand Step Pivot Transfer Ability Level of Assist Standby Assistance Comments Mobility Comments Review of spinal precautions, cues for upright posture and safety. Gait Assessment Gait Gait Assistance Required: Contact Guard Assist Distance (Feet) 20 Assistive Devices Assistive Device Front Wheeled Walker Gait Deviations General Gait Pattern Antalgic Decreased Stride Length Decreased Feet Clearance Flexed Trunk Lateral Trunk Lean Step-to Gait Factors Limiting Gait Function Factors Limiting Gait Function Decreased Sensation Decreased Strength Pain Poor Balance Comments Gait Comments Cueing for upright posture, pt leans heavily on FWW. L foot drop continues. M5 PT-IP Objective Assessments Start: 05/22/18 12:37 Freq: NEEDED Status: Active Protocol: Document 05/22/18 09:50 AMB (Rec: 05/22/18 12:59 AMB [email or web address]) Orientation Orientation/Cognition Level of Alertness Alert Strength Lower Extremity Strength Assessment Left Impaired Comments Strength Comments absent dorsiflexion, pt can plantarflex from neutral, hip flexion less than 2/5 Sensation Assessment Sensation Gross Sensation Left LE Impaired M6 PT-IP Treatment Start: 05/22/18 12:37 Freq: NEEDED Status: Active Protocol: Document 05/23/18 09:00 AMB (Rec: 05/23/18 11:47 AMB [id number]) Physical Therapy Treatment Exercises Exercises Ankle Pumps Short Arc Quads M7 PT-IP Assessment and Plan Start: 05/22/18 12:37 Freq: NEEDED Status: Active Protocol: Document 05/23/18 09:00 AMB (Rec: 05/23/18 11:47 AMB [id number]) PT Summary Assessment and Plan Summary Impairments Pain Strength Balance Sensation Bed Mobility Transfers Gait Activity Tolerance Assessment Summary Pt with high level of pain today. Will need rehab at [facility] to help increase safety, balance, gait tolerance. Goals Bed Mobility Goal Standby Assistance Transfer Goal Independent Gait Goal Standby Assistance Gait Distance 100' Other Goals 4 stairs with 1 rail with SBA Days to Meet Goals 4 Frequency of Treatment Frequency Of Treatment Twice a Day Treatment Plan Other Recommendations and Next Treatment Progress gait with better Focus posture and body mechanics. Recommendations To Nursing Amount of Assist Needed 1 Person Assist Discharge Recommendations PT Discharge Recommendations SNF Rehab
--- NOTE | 2018-05-23 14:10 | PT.IPTN ---
Current Diagnoses Pseudomonas (aeruginosa) (mallei) (pseudomallei) as the cause of diseases classified elsewhere (05/21/18) Spinal stenosis, lumbar region with neurogenic claudication (05/21/18) Unspecified fracture of unspecified lumbar vertebra, subsequent encounter for fracture with nonunion (05/21/18) Surgery Performed Operation Date: 05/21/18 12:15 Actual Procedures p Revision left L5-S1 laminectomy, Revision of screws on left at L5-S1 w/Refusion at this level with bone graft - Sincere Hawley MD Physical Therapy Treatment Note M2 PT-IP Current Condition Start: 05/22/18 12:37 Freq: NEEDED Status: Active Protocol: Document 05/22/18 09:50 AMB (Rec: 05/22/18 12:59 AMB [email or web address]) Physical Therapy Current Condition Current Condition Evaluation Date 05/22/18 Treatment Diagnosis L5S1 posterior fusion/lami Onset Date 05/21/18 Precautions Lumbar Precautions Log Roll No Twisting Limit Bending Lifting Restriction of 10 lbs Gait Belt above Incisional Area M3 PT-IP Subjective Start: 05/22/18 12:37 Freq: NEEDED Status: Active Protocol: Document 05/23/18 14:10 GGD (Rec: 05/23/18 14:30 GGD [id number]) Subjective Physical Therapy Visit Type Type Treatment Note Visit Start Time 13:45 Visit Stop Time 14:10 Total Visit Minutes 25 Number of SIENE MAKER Visits 1 Physical Therapy Visit Comments Patient Comments Pt states she willing to work with therapy. Therapy Pain Assessment Pain When Pain Assessed During Mobility Pain Present Pain Present Pain Reported Location Back Intensity 7 Scale Used Numeric (1 - 10) Description Shooting Pain Management Techniques Re-positioning Timing of Activity with Medications M4 PT-IP Mobility and Gait Start: 05/22/18 12:37 Freq: NEEDED Status: Active Protocol: Document 05/23/18 14:10 GGD (Rec: 05/23/18 14:30 GGD [id number]) PT-Bed Mobility Assessment Rolling Type of Rolling Log Rolling Level of Assist Contact Guard Assistance Supine to Sit Supine to Sit Contact Guard Assistance Sit to Supine Sit to Supine Contact Guard Assistance Scooting Scooting to Edge of Bed Standby Assistance PT-Transfer Assessment Sit to and From Stand Sit to and from Stand Contact Guard Assistance Use of Upper Extremities Equipment Transfer Assistive Device Bed Rail Gait Belt Front Wheeled Walker Transfers Transfer Destination Bed Transfer Ability Level of Assist Standby Assistance Gait Assessment Gait Gait Assistance Required: Contact Guard Assist Distance (Feet) 30 Assistive Devices Assistive Device Gait Belt Front Wheeled Walker Orthotic/Prosthetic Devices or Brace: No Gait Deviations General Gait Pattern Antalgic Decreased Stride Length Decreased Feet Clearance Flexed Trunk Lateral Trunk Lean Step-to Gait Factors Limiting Gait Function Factors Limiting Gait Function Decreased Sensation Decreased Strength Pain Poor Balance Comments Gait Comments min cues for posture. M5 PT-IP Objective Assessments Start: 05/22/18 12:37 Freq: NEEDED Status: Active Protocol: Document 05/22/18 09:50 AMB (Rec: 05/22/18 12:59 AMB [email or web address]) Orientation Orientation/Cognition Level of Alertness Alert Strength Lower Extremity Strength Assessment Left Impaired Comments Strength Comments absent dorsiflexion, pt can plantarflex from neutral, hip flexion less than 2/5 Sensation Assessment Sensation Gross Sensation Left LE Impaired M6 PT-IP Treatment Start: 05/22/18 12:37 Freq: NEEDED Status: Active Protocol: Document 05/23/18 14:10 GGD (Rec: 05/23/18 14:30 GGD [id number]) Physical Therapy Treatment Exercises Exercises Ankle Pumps Education Education Provided Precautions M7 PT-IP Assessment and Plan Start: 05/22/18 12:37 Freq: NEEDED Status: Active Protocol: Document 05/23/18 14:10 GGD (Rec: 05/23/18 14:30 GGD [id number]) PT Summary Assessment and Plan Summary Assessment Summary Pt was able to progress gait short distance. She has increase in pain with mobility . She has heavy use of UE on FWW with gait. She would benefit from SNF to improve gait, balance and safe mobility. Frequency of Treatment Frequency Of Treatment Twice a Day Treatment Plan Physical Therapy Treatment Plan Bed Mobility Training Transfer Training Gait Training Therapeutic Exercise Balance Retraining Post Op Education Hot or Cold Pack Neuromuscular Re-ed Recommendations To Nursing Amount of Assist Needed 1 Person Assist Discharge Recommendations PT Discharge Recommendations SNF Rehab
[2018-05-23] MEDS: HYDROXYCHLOROQUINE 200 MG TABLET 400 MG PO (17:10)
[2018-05-23] MEDS: ATORVASTATIN 20 MG TABLET 80 MG PO (21:41)
[2018-05-24] MEDS: HYDROMORPHONE 2 MG TABLET 4 MG PO ×5 (00:39→12:26)
[2018-05-24 00:48] VITALS: BP 112/61; PULSE 71; RESP 16; TEMP 36.8; O2SAT 95
[2018-05-24 05:59] VITALS: BP 116/53; PULSE 69; RESP 18; TEMP 36.6; O2SAT 93
[2018-05-24 07:30] VITALS: BP 138/71; PULSE 76; RESP 16; TEMP 36.9; O2SAT 97
[2018-05-24] MEDS: CHOLECALCIFEROL (VITAMIN D3) 1,000 UNIT TABLET 4000 UNIT PO (09:08)
[2018-05-24] MEDS: MELOXICAM 7.5 MG TABLET PO (09:09)
[2018-05-24] MEDS: CHLORTHALIDONE 25 MG TABLET PO (09:09)
[2018-05-24] MEDS: CITALOPRAM 20 MG TABLET PO (09:09)
[2018-05-24] MEDS: FLUTICASONE 120 SPRAY/16 GM SPRAY.SUSP NASAL (09:10)
[2018-05-24] MEDS: GABAPENTIN 600 MG TABLET PO (09:10)
[2018-05-24] MEDS: predniSONE 2.5 MG TABLET PO (09:10)
[2018-05-24] MEDS: OXYMETAZOLINE NASAL SPRAY 15 ML 2 SPRAYS NASAL (09:10)
[2018-05-24] MEDS: LISINOPRIL 5 MG TABLET 2.5 MG PO (09:12)
[2018-05-24] MEDS: METOPROLOL ER 25 MG TABLET PO (09:13)
[2018-05-24] MEDS: LEFLUNOMIDE 20 MG TABLET PO (09:13)
[2018-05-24] MEDS: POTASSIUM CHLORIDE 20 MEQ TAB PO (09:14)
--- NOTE | 2018-05-24 10:07 | PM.PNPO.1 ---
Subjective Date Patient Seen: 05/24/18 Time Patient Seen: 10:07 Interval history: Doing better. However whenever she turns or twists the wrong way she gets a large amount of pain in the left buttock and still going down the left leg. Leg still weak. Exam Vital Signs (past 8 hours): - 05/24/18 05:59 05/24/18 07:30 Temperature 97.8 F 98.4 F Pulse Rate 69 76 Respiratory Rate 18 16 Blood Pressure 116/53 L 138/71 Pulse Oximetry 93 97 Fraction of Inspired Oxygen 21 Oxygen Delivery Method Room Air Oxygen Flow Rate 0 Back/Spine/Pelvis Other: Dressing CDI. 5/5 motor both lower extremities except for unchanged left footdrop. Objective Labs Result Diagrams: 05/22/18 05:31 Assessment & Plan Post-op Postoperative Procedures Operation Date: 05/21/18 12:15 Actual Procedures Side Surgeon p Revision left L5-S1 laminectomy, Revision of screws on left at L5-S1 w/Refusion at this level with bone graft Sincere Hawley MD I am going to give her a 1 time dose of IV steroids to see if that helps with some of the leg pain. The nerve has been well decompressed with surgery, this is more likely just residual. Plan for discharge to halfway today. Quality VTE Deep Vein Thrombosis/Pulmonary Embolism Present on Admission: No
--- NOTE | 2018-05-24 10:17 | PM.DS.1 ---
History of Present Illness Date Patient Seen: 05/24/18 Time Patient Seen: 10:18 Chief complaint: [id number] Narrative: 63-year-old female with a history of an extensive scoliosis fusion from T6 to the sacrum in August of 2017. She returned with a Pseudomonas infection a few weeks later that was washed out and treated with antibiotics and she recovered quite well from this. However, a few months ago she presented with acute onset of left leg pain and numbness and footdrop. She is found to have a large cyst on the left-hand side at L5-S1 as well as apparent nonunion at the L5-S1 level. Discharge Providers Date of admission: 05/21/18 10:43 Primary care physician: Irwin Duong MD Consults: 05/21/18 17:04 Consult to Occupational Therapy Evaluate & Treat Comment: Physician Instructions: Evaluate and treat Consult to Physical Therapy Evaluate & Treat Comment: Physician Instructions: Evaluate and Treat 05/22/18 08:37 Consult to Occupational Therapy Evaluate & Treat Comment: Physician Instructions: Evaluate and treat Discharge provider: Sincere Hawley MD Discharge Date: 05/24/18 Summary Discharge Diagnosis: Lumbar stenosis Footdrop L5-S1 pseudoarthrosis Hospital Course: She is brought to the operating room on 04/20/2018 where she underwent a decompression of the large cyst at L5-S1 on the left-hand side. She also had a revision instrumentation and fusion at the L5-S1 level for her pseudarthrosis. Postoperatively she did well. Her pain level gradually improved. However, she is still having difficulty with some pain mostly in the buttock and also going down the left leg with certain twisting maneuvers. She still had unchanged footdrop. It is felt that she would benefit from prison. Status at Discharge Functional status at discharge: uses cane/walker Overall status at discharge: patient is progressing back to baseline Exam Vital Signs (past 8 hours): - 05/24/18 05:59 05/24/18 07:30 Temperature 97.8 F 98.4 F Pulse Rate 69 76 Respiratory Rate 18 16 Blood Pressure 116/53 L 138/71 Pulse Oximetry 93 97 Fraction of Inspired Oxygen 21 Oxygen Delivery Method Room Air Oxygen Flow Rate 0 Const Orientation: alert and oriented x3 Back/Spine/Pelvis Other: Dressing clean dry intact. 5/5 motor both lower extremities except for unchanged left footdrop Objective Labs Result Diagrams: 05/22/18 05:31 Discharge Plan Discharge Plan Transfer to: [facility] [place] Transportation: Wheelchair Consult as needed: Dental, Hearing, Mental health, Podiatry and Vision Discharge comment: f/u 1.[address] Chandan Dias certify the postop hospital prison care is medically necessary on a continuing basis for any conditions for which he/ she received care during this hospitalization.: Yes The receiving facility has agreed to accept transfer and provide medical treatment.: Yes Discharge Med Rec/Prescriptions Prescriptions: New hydroxyzine pamoate 25 mg Capsule 25 mg PO Q6HR PRN (Reason: spasms) Qty: 30 RF: 0 oxycodone-acetaminophen 5-325 mg Tablet See Label Instructions .ROUTE .COMPLEX PRN (Reason: Pain, Moderate (4-6)) Qty: 60 RF: 0 hydromorphone 2 mg Tablet See Label Instructions .ROUTE .COMPLEX PRN (Reason: Pain, Moderate (4-6)) Qty: 60 RF: 0 Continue cholecalciferol (vitamin D3) [Vitamin D3] 2,000 unit Capsule 4,000 unit PO DAILY Qty: 0 RF: 0 oxymetazoline [Afrin (oxymetazoline)] 0.05 % [place],Non-Aerosol 2 spray Intranasal BID PRN (Reason: Congestion) Qty: 30 RF: 0 fluticasone 16 GM spray,suspension 2 spray Intranasal QDAY Qty: 1 RF: 5 citalopram 40 MG tablet 20 mg PO QDAY Qty: 45 RF: 1 metoprolol succinate [Toprol XL] 25 MG tablet extended release 24 hr 25 mg PO QDAY Qty: 90 RF: 1 lisinopril 2.5 MG tablet 2.5 mg PO QDAY Qty: 90 RF: 1 potassium chloride [K-Tab] 20 MEQ tablet extended release 20 meq PO QDAY Qty: 90 RF: 0 prednisone 10 MG tablet 2.5 mg PO QDAY Qty: 0 RF: 0 atorvastatin [Lipitor] 80 MG tablet 80 mg PO HS Qty: 90 RF: 0 chlorthalidone 25 MG tablet 25 mg PO QDAY Qty: 0 RF: 0 cyclobenzaprine 10 MG tablet 10 mg PO TIDP PRN (Reason: Muscle Spasm) RF: 0 alprazolam 0.25 MG tablet 1 - 2 tab PO DAILY PRN (Reason: Anxiety) RF: 0 gabapentin 600 mg Tablet 600 mg PO TID RF: 0 leflunomide 20 mg Tablet 20 mg PO DAILY RF: 0 meloxicam 7.5 mg Tablet 7.5 mg PO DAILY RF: 0 hydroxychloroquine 200 mg Tablet 400 mg PO QPM RF: 0 albuterol sulfate 90 mcg/actuation Hfa Aerosol Inhaler 2 puff INHALATION BID PRN (Reason: Shortness Of Breath) RF: 0 ranitidine HCl 150 mg Capsule 150 mg PO BID RF: 0 Disabled Parking Permit RF: 0 Discontinued hydrocodone-acetaminophen 10-325 mg Tablet 1 tab PO TID RF: 0 Discharge Orders: Discharge (Order); Ordered 05/24/18 Ordered By: Sincere Hawley Discharge Health Status Multidrug resistant organism: No MDRO Precautions: [place] Provider Discharge Instructions Diet: Diet as Tolerated Liquid consistency: Normal/Thin Food texture: Regular Activity: limited BLT 10 lbs max Skin/Wound/Dressing Care Dressing: may change prn. may shower Sunday and change dressing Special Rehabilitation Services Reason for rehabilitation: Post-operative therapy Rehab type: Physical therapy and Occupational therapy Discharge Data Primary Care Provider: Irwin Duong Attending Provider: Sincere Hawley Admit Date/Time: 05/21/18 10:43 Quality VTE Deep Vein Thrombosis/Pulmonary Embolism Present on Admission: No
--- NOTE | 2018-05-24 11:03 | CM.DPNOTE ---
DCP Discharge to SNF Per MD, pt is medically stable to d/c to SNF today after getting IV dekatron and printed scripts, med list, and orders. SW called [facility] and updated on official d/c orders and they confirmed that they can still accept the pt today and can provide transport at 1300 since patient needs med before discharge. MCKAY Dodd faxed d/c packet to [facility] to review including scripts, signed med rec, PASRR. ARTEM met bedside with pt and adult son and confirmed that they are still agreeable with d/c to [facility] today. ARTEM updated RN, GEOLOGICAL SURVEY FIELD ASSISTANT, NTL on d/c time and plan. Plan: Patient to d/c to [facility] via w/c van at 1300 today. KANDIS Rutledge
[2018-05-24] MEDS: DEXAMETHASONE 10 MG/ML VIAL IV (11:25)
--- NOTE | 2018-05-24 12:15 | CM.DPC ---
D/C packet faxed to [facility] per Shanika
--- NOTE | 2018-05-24 12:28 | PC.NURSE ---
Decadron administered IV and pt is now ready for dc to [facility]. Report called to DIANNE.
== END 2018-05-24 13:43 | DRG 460 ==
PROVIDERS: Admitting Provider Orthopaedic Surgery; PCP Family Medicine; Visit Provider Orthopaedic Surgery
PROC: 0SG3071 Fusion of Lumbosacral Joint with Autologous Tissue Substitute, Posterior Approach, Posterior Column, Open Approach (ICD-10-PCS; principal; 2018-05-21 12:15)
DX: M48.062 Spinal stenosis, lumbar region with neurogenic claudication (principal); M96.0 Pseudarthrosis after fusion or arthrodesis; T84.038A Mechanical loosening of other internal prosthetic joint, initial encounter; M06.9 Rheumatoid arthritis, unspecified; I10 Essential (primary) hypertension; K21.9 Gastro-esophageal reflux disease without esophagitis; E11.9 Type 2 diabetes mellitus without complications; Z87.891 Personal history of nicotine dependence; M85.48 Solitary bone cyst, other site; M21.372 Foot drop, left foot
CPT/HCPCS: 36415; 72100; 76001; 85014; 85018; 88304; 94760; 97116; 97162; 97165; 97530; C1776; C1788; J0330; J0690; J1100; J1170; J2060; J2405; J2704; J3010

== ENCOUNTER → 2019-02-05 12:31 | Outpatient (CLI) | payer MEDICARE, MEDICAID, SELFPAY ==
[2018-05-21 17:37] VITALS: BMI 36.6
--- NOTE | 2019-02-05 | DI.CT.S_ITS ---
PROCEDURE: CT LUMBAR SPINE WO CON INDICATIONS: fracture of unspec lumbar vertebre TECHNIQUE: Noncontrast 3 mm thick sections acquired from the T12 level to the sacrum. Sagittal and coronal reformats were constructed. For radiation dose reduction, the following was used: automated exposure control. COMPARISON: [facility], MR, MR LUMBAR SPINE WO/W CON, 03/18/2018, 13:39. [facility] [place], CR, XR THORACIC SPINE 2 VIEWS, 12/05/2017, 13:05. [facility], CT, CT LUMBAR SPINE WO CON, 02/20/2018, 15:27. [facility] [place], CR, XR LUMBAR SPINE 2 OR 3 VIEWS, 12/12/2018, 14:37. FINDINGS: Image quality: Excellent. Bones: Thoracolumbar spine fixation hardware is stable compared to 02/20/18. Lucencies adjacent to the S1 transpedicular screws are stable compared to the prior CT scan. Intervertebral disc spacers at the L1-L2, L2-L3, L3-L4, L4-L5 and L5-S1 levels are stable in appearance. L5-S1 intervertebral spacer protrudes dorsally right neural foramen into the Orthopedic hardware is intact. S-shaped scoliosis of the thoracolumbar spine is stable. Mild L1-L2 and L2-L3 retrolisthesis is stable compared to prior exam. Mild L4-L5 and L5-S1 anterolisthesis is stable. No acute vertebral body compression fractures. No suspicious lytic or blastic bony lesions. No pars defects. Chronic appearing posterior left 11th rib fracture. T12-L1: Loss of disc height. Vacuum disc phenomenon. Endplate osteophytosis. Mild bilateral facet hypertrophy. No central stenosis. No neural foraminal narrowing. No definite neural impingement. L1-L2: Mild, diffuse disc bulge. Mild bilateral facet hypertrophy. No central stenosis. Mild left neural foraminal narrowing. No definite neural impingement. L2-L3: Mild, diffuse disc bulge. Mild bilateral facet hypertrophy. Mild to moderate narrowing of the central canal. Moderate bilateral neural foraminal narrowing. No definite neural impingement. L3-L4: Mild, diffuse disc bulge. Mild bilateral facet hypertrophy. Mild narrowing of the central canal. Mild right and moderate left neural foraminal narrowing. No definite neural impingement. L4-L5: Loss of disc height. Moderate, diffuse disc bulge. Moderate bilateral facet hypertrophy. Central disc extrusion. Extruded disc material is partially calcified. Severe narrowing of the central canal with likely compression of the nerve roots of the cauda equina. Severe bilateral neural foraminal narrowing with compression of the exiting L4 nerve roots. L5-S1: Loss of disc height. Large partially calcified mass is identified in the central canal which contains internal air locules. The mass extends from the superior superior endplate of L5 to the mid aspect of S1 causing severe central stenosis with severe mass effect on the nerve roots or cauda equina. Severe bilateral neural foraminal narrowing with compression of the exiting L5 nerve roots. Soft tissues: No retroperitoneal masses or hematomas. Visualized aorta is normal in caliber. IMPRESSION: 1. Stable postsurgical changes. 2. No acute vertebral body compression fracture. 3. Multilevel degenerative disease 4. Multilevel facet of the. 5. Severe L4-L5 and L5-S1 the central canal stenosis. 6. Bilateral L4-L5 and L5-S1 neural foraminal narrowing. 6. Large partially calcified space occupying lesion containing internal air locules in the central canal the level of the L5 and S1 vertebral bodies. The lesion is causing severe central canal stenosis with marked mass effect on the nerve roots or cauda equina. Lesion is increased in size compared to 02/20/2018. Lesion may represent large disc extrusion with heterotopic bone formation or neoplastic process. 8. Compression of the exiting bilateral L4 and L5 nerve roots secondary to neural foraminal narrowing. Dictated by: Lisa Doyle MD, PhD on 02/05/2019 at 15:02 Approved by: Lisa Doyle MD, PhD on 02/05/2019 at 15:32
== END ==
PROVIDERS: PCP Family Medicine; Visit Provider Orthopaedic Surgery
DX: S32.009K Unspecified fracture of unspecified lumbar vertebra, subsequent encounter for fracture with nonunion (principal); M51.36 Other intervertebral disc degeneration, lumbar region; M47.816 Spondylosis without myelopathy or radiculopathy, lumbar region; M48.061 Spinal stenosis, lumbar region without neurogenic claudication; M48.07 Spinal stenosis, lumbosacral region
CPT/HCPCS: 72131

== ENCOUNTER → 2019-05-07 10:59 | Outpatient (CLI) | payer MEDICARE, OTHER, SELFPAY ==
[2018-05-21 17:37] VITALS: BMI 36.6
--- NOTE | 2019-05-07 | DI.NM.S_ITS ---
PROCEDURE: NM BONE SPECT RADIOPHARMACEUTICAL: 19.5 mCi Tc-99m MDP IV. INDICATIONS: LUMBAR PSEUDOARTHROSIS TECHNIQUE: Delayed bone scintigrams were obtained of the region of interest 3-4 hours after intravenous administration of Tc-99m MDP. Additional tomographic (SPECT) imaging was performed and displayed in axial, coronal, and sagittal planes. COMPARISON: [facility], MR, MR LUMBAR SPINE WO/W CON, 03/18/2018, 13:39. [facility], CR, CHEST FOR PICC PLACEMENT, 09/13/2017, 19:34. [facility], CR, XR LUMBAR SPINE 2 OR 3 VIEWS, 12/12/2018, 14:37. [facility], CT, CT LUMBAR SPINE WO CON, 02/05/2019, 12:51. FINDINGS: The associate media planner and SPECT images demonstrate foci increased uptake in the lower thoracic spine and lumbar spine, correlating with degenerative and postsurgical changes seen on the comparison CT. Foci of mildly increased activity are also seen in the right 10th and 11th rib and left ninth rib, also likely secondary to old trauma. IMPRESSION: 1. Foci of increased uptake in the lower thoracic spine lumbar spine are compared with degenerative and post surgical changes as seen on radiographs, CT and MRI. 2. Mildly increased uptake in the right 10th and 11th ribs and left ninth rib are likely related to subacute trauma. If there is persistent history of cancer, lesions could represent metastatic disease. Dictated by: Francisco Galeana M.D. on 05/07/2019 at 17:55 Approved by: Francisco Galeana M.D. on 05/07/2019 at 18:01
[2019-05-07 13:10] LABS: Platelet Count 209 X10^3/uL (150-400)
== END ==
PROVIDERS: PCP Family Medicine; Visit Provider Orthopaedic Surgery
DX: Z01.818 Encounter for other preprocedural examination (principal); M96.0 Pseudarthrosis after fusion or arthrodesis; M47.814 Spondylosis without myelopathy or radiculopathy, thoracic region; M47.816 Spondylosis without myelopathy or radiculopathy, lumbar region; Z51.81 Encounter for therapeutic drug level monitoring
CPT/HCPCS: 36415; 78320; 85049; 85610; A9503

== ENCOUNTER → 2019-05-09 11:57 | Outpatient (CLI) | payer MEDICARE, OTHER, SELFPAY ==
[2018-05-21 17:37] VITALS: BMI 36.6
--- NOTE | 2019-05-09 | DI.RAD.S_ITS ---
PROCEDURE: FL INJECT SPINE FOR CT MYELO INDICATIONS: LUMBAR PSEUDOARTHROSIS COMPARISON: CT lumbar spine 02/05/19. Lumbar spine radiograph 12/12/18. NM bone SPECT 05/07/19. TECHNIQUE: The indications, alternatives, benefits, risks and complications of the procedure were explained to the patient. Written informed consent was obtained and placed in the chart. The patient reported severe leg and back pain preventing mobility and adequate positioning for lumbar puncture. Monitored conscious sedation and analgesia with 50 mcg of fentanyl IV was administered by the nursing staff (monitored and administered by Jacy Cisneros RN). This allowed the patient to be placed in a mildly oblique/prone position on the fluoroscopy table, and a level was chosen for percutaneous access under fluoroscopic guidance. The skin overlying the lumbar spine was prepped and draped in a sterile fashion. After the adminsitration of 1% lidocaine as local anaesthetic, multiple lumbar puncture attempts at multiple levels were attempted under fluoroscopic visualization, but were unsuccessful. The needle was then withdrawn, and a bandage applied to the puncture site. The patient reports no new complaints postprocedure and specifically denies any headache, nausea, vomiting, or bilateral lower extremity or back pain. The patient was monitored after the procedure for approximately 1 hour and reevaluated prior to discharge. FINDINGS: Standing frontal, lateral, and oblique views demonstrate no significant central canal stenoses. Access level: Multiple lumbar puncture attempts at multiple levels of the lumbar spine were attempted. There is extensive surgical hardware of the lumbar spine with bone/osteophyte formation. Medications: 1% lidocaine for local anaesthesia. 50 mcg of fentanyl IV was administered by nursing staff under monitored conscious sedation protocol (monitored and administered by Jacy Cisneros RN). Complications: Intrathecal access could not be obtained by lumbar puncture despite best attempts. The needle was then withdrawn, and a bandage applied to the puncture site. The patient reports no new complaints postprocedure and specifically denies any headache, nausea, vomiting, or bilateral lower extremity or back pain. The patient was monitored after the procedure for approximately 1 hour and reevaluated prior to discharge. IMPRESSION: Unsuccessful image guided lumbar puncture for contrast administration. Intrathecal access could not be obtained despite best attempts at imaging guided access. A radiographic or CT myelogram could not be performed at this time. Recommend clinical followup for further evaluation and management. Dictated by: Torrey Ryan M.D. on 05/09/2019 at 15:40 Approved by: Torrey Ryan M.D. on 05/09/2019 at 15:54
[2019-05-09 13:29] VITALS: BP 142/91; PULSE 81; RESP 18; O2SAT 93
[2019-05-09 13:35] VITALS: BP 182/103; PULSE 95; RESP 15; O2SAT 100
[2019-05-09 13:39] VITALS: BP 182/75; PULSE 93; RESP 21; O2SAT 100
[2019-05-09 13:46] VITALS: BP 186/88; PULSE 91; RESP 19; O2SAT 100
[2019-05-09 13:59] VITALS: BP 186/88; PULSE 90; RESP 19; O2SAT 99
[2019-05-09] MEDS: fentaNYL 100 MCG/2 ML INJ IV (14:37)
== END ==
PROVIDERS: PCP Family Medicine; Visit Provider Orthopaedic Surgery
DX: M96.0 Pseudarthrosis after fusion or arthrodesis (principal)
CPT/HCPCS: 62284; 72132; 77003; J3010

== ENCOUNTER 2019-05-09 11:59 | Day surgery (SDC) | payer MEDICARE, MEDICAID, SELFPAY ==
[2018-05-21 17:37] VITALS: BMI 36.6
[2019-05-09 12:30] VITALS: BP 173/95; PULSE 100; TEMP 37.3; O2SAT 95
[2019-05-09 12:36] VITALS: BP 117/45; PULSE 63; RESP 12; O2SAT 98
[2019-05-09 12:41] VITALS: BP 112/64; PULSE 63; RESP 12; O2SAT 97
[2019-05-09 12:42] VITALS: BP 173/95; PULSE 100; RESP 18; TEMP 37.3; O2SAT 95
[2019-05-09 12:48] VITALS: BMI 37.8
[2019-05-09 14:12] VITALS: BP 146/86; PULSE 82; RESP 16; TEMP 36.4; O2SAT 95
[2019-05-09 14:45] VITALS: BP 142/85; PULSE 81; RESP 16; TEMP 36.6; O2SAT 95
--- NOTE | 2019-05-09 15:16 | SUR.PHASEII ---
[id number] Dr. Ryan evaluated patient. Patient denied nausea, site pain, headache. OK to discharge per MD.
== END 2019-05-09 14:58 | disposition home or self-care (01) ==
LOC: OR 12:00
PROVIDERS: PCP Family Medicine
PROC: (CPT 62284; principal; 2019-05-09 13:00)
DX: S32.009K Unspecified fracture of unspecified lumbar vertebra, subsequent encounter for fracture with nonunion (principal); Z53.8 Procedure and treatment not carried out for other reasons
CPT/HCPCS: 62284

== ENCOUNTER 2019-07-03 10:38 | Inpatient (IN) | payer MEDICARE, OTHER, SELFPAY ==
[2018-05-21 17:37] VITALS: BMI 36.6
[2019-06-19 13:49] VITALS: BMI 37.9
[2019-07-03] VITALS (17 sets, daily range): BP systolic 102–171; BP diastolic 67–98; PULSE 78–102; RESP 10–17; TEMP 36.4–36.9; O2SAT 94–97; BMI 37.9
--- NOTE | 2019-07-03 | DI.RAD.S_ITS ---
PROCEDURE: XR LUMBAR SPINE 2-3V INDICATIONS: L5-S1 SCREW SWAP, L5-S1 CYST REMOVAL TECHNIQUE: 2 views of the lumbar spine were acquired. COMPARISON: [facility], CR, XR LUMBAR SPINE 2 OR 3 VIEWS, 12/12/2018, 14:37. [facility], CT, CT LUMBAR SPINE WO CON, 02/05/2019, 12:51. [facility], CR, XR LUMBAR SPINE 2-3V, 05/21/2018, 16:15. FINDINGS: Spot fluoroscopic images demonstrating partially visualized lower lumbar posterior spinal fixation hardware with paraspinal ana and pedicle screws. Dictated by: Elias Small M.D. on 07/03/2019 at 17:27 Approved by: Elias Small M.D. on 07/03/2019 at 17:30
--- NOTE | 2019-07-03 | PATH_ITS ---
[facility] Accession Number: [id number] . 01 Material submitted: . back - L5-S1 LUMBAR SPINE . 01 Diagnosis: Disc, L5-S1, Lumbar Spine, Excision: Fibrocartilage with extensive degenerative and reactive changes and associated dystrophic calcifications. MRV 07/07/2019 1338 Local . 01 Comment: This case is also reviewed by Dr. Destiny Ma, who concurs with the given interpretation. . 01 Electronically signed: . Isaura Patrick MD, Pathologist NPI- [id number] . 01 Gross description: . Received in formalin, labeled L5-S1 lumbar cyst, is an opened pratt-membreno rubbery cyst-like structure (2.0 x 1.8 x 1.7 cm) containing membreno-pratt rubbery tissue. Also submitted are multiple fragments of pratt-membreno rubbery tissue (2.5 x 2.5 x 0.9 cm in aggregate). The exterior is inked blue. Aquaculture Farmer serial sections submitted in cassette A1 and parts sales representative tissue fragments submitted in cassette A2. ([id number]) /MRV 07/07/2019 1644 Local . 01 Pathologist provided ICD-10: M48.062 . 01 CPT . 708723 Performed at: [address], [place], [place] [id number] MD Krishan Emmanuel MD Phone: [phone]
--- NOTE | 2019-07-03 11:12 | PM.PREOP ---
Pre-operative Note Interval Note History & Physical reviewed/Exam performed by Physician: Yes Changes to H&P: No
[2019-07-03] MEDS: CEFAZOLIN 2 GM/100 ML FROZ.PIGGY IV ×2 (11:30→19:57)
[2019-07-03] MEDS: LACTATED RINGERS 1,000 ML 42 ML IV ×2 (11:34→12:30)
[2019-07-03] MEDS: VANCOMYCIN 1,000 MG VIAL 1000 MG TOP (12:06)
[2019-07-03] MEDS: THROMBIN (RECOMBINANT) 5,000 UNIT VIAL 5000 UNIT TOP (12:06)
[2019-07-03] MEDS: SODIUM CHLORIDE 0.9% 1,000 ML, GENTAMICIN 80 MG IRR (12:06)
[2019-07-03] MEDS: BUPIVACAINE 0.5% (PF) 4 ML, MORPHINE-PF 4 MG, BUTORPHANOL 1 MG, fentaNYL 100 MCG INJ (13:58)
--- NOTE | 2019-07-03 16:07 | P.OP_ITS ---
Operative Date/Time/Diagnoses Date of procedure: 07/03/19 Time of procedure: 16:07 Pre-op diagnosis: Lumbar stenosis with radiculopathy lumbar facet cyst (intra canal, extradural) Lumbar pseudoarthrosis Post-op diagnosis: same Procedure & Clinicians Procedure: Revision laminectomy L5-S1 with excision of facet cyst Fusion exploration L5-S1 hardware exchange Iliac crest bone graft Use of microscope Same procedure as scheduled: Yes Indications: [age] year old female with left foot drop and a massive facet cyst. They had failed conservative management and requested operative intervention. Risks and benefits of surgery were discussed and appropriate consents were obtained. Length Control Tester: Marina Donahue Anesthesia Type: General Operative Notes Findings: None Closure Type: primary Specimen(s): other (Lumbar facet cyst) Prosthetic devices, grafts, tissues, transplants, or devices: NuVasive realign screws Applied: catheter Estimated Blood Loss (mL): 20 Blood products transfused: none Procedure in detail: Patient was brought to the operating room and intubated on the table. They were rolled over on the well-padded prone position on the Earl table. A time-out was performed. Preoperative antibiotics were given. The back was prepped and draped in standard sterile fashion. Using fluoroscopy for localization, a 5 cm incision was made in the midline. We used Bovie to dissect through the lumbodorsal fascia and then subperiosteally dissect the paraspinal muscles off both sides. Care was taken to not go into the previous laminectomy sites. We went out to the facets and then over the L5 and S1 screws. The set screws and ananda removed and a lamina robotic machine tender production was used against the screws and there still appeared to be a little motion, confirming her pseudoarthrosis. The screws were removed. We cleared the soft tissue and expose the transverse process and facet and sacral ala and all these were decorticated with a bur. We then brought in the microscope. We removed her L5 spinous process as well as the undersurface of L4 in the midline. We traced out her previous laminotomy at L5 on the left. Some of this went all the way up to the L4 lamina from the previous surgery. We used a curette to separate the soft tissue from the bone and then removed further bone with the Kerrison rongeur until we'd removed all the remaining L5 lamina and undermined part of the L4 lamina. Care was taken around the scar tissue from previous surgery. This was a revision laminectomy. We then worked around the edges the facet and performed more of a hemifacetectomy. We cleared the soft tissue away and removed the previous scar tissue. We came down to the scar over the dura and an obvious mass on the lateral aspect over the L5 facet. We began carefully dissecting this away from the dura and nerve roots. This was so large that it went up underneath the L4 lamina. The L5 nerve root on the right was completely stretched out and flattened. The medial border of the dura was almost to the midline and the L5 root was completely stretched over the facet cyst. This took about 1.5 hours to carefully free up the cyst from the scar tissue and the dura until it was free. We had to cut through it right below the L5 root and removed that section and then we could get the more cephalad section once we could mobilize it. When it was opened it was full of caseating tissue like a normal facet cyst. We kept working to wait removed all the tissue. The wound was irrigated. We then traced out the L5 nerve root out to the foramen and this actually was quite free as was no longer stretched out. We then went up and our screw diameter and placed larger screws at L5 and S1 with good fixation. We had to make a separate stab incision on the right to get enough angle to go in to place the L5 screw machine tool setter her previous holes. X-ray confirmed positioning as well as neural monitoring for safety. Ananda was placed and locked down. The wound was irrigated. A stab incision was made over the right PSIS. Jamshidi needle was placed into the pelvis and 5 mm of bone marrow were aspirated with multiple passes. This was mixed with our locally harvest graft as well as our Osteocel allograft and placed on the bilateral posterolateral gutters for the revision fusion at L5-S1. An epidural catheter was prepared with 4mL of 0.5% Marcaine, 1 mg state all, 4 mg Duramorph, and 100 mcg of fentanyl. The dura was carefully depressed and the catheter was advanced 6 cm cephalad underneath remaining lamina without resistance. A deep drain was placed due to having such a large space. The fascia was then closed in layers. The epidural catheter was injected without complications. Vancomycin powder was placed in the wound. The superficial and the skin were closed. Sterile dressing was placed. Patient was rolled over extubated brought to recovery room with no complications. Complications: none Post-operative Condition: stable Disposition: PACU Plan for aftercare: Inpatient. Up with PT.
[2019-07-03] MEDS: HYDROMORPHONE 0.5 MG INJ IV ×3 (17:41→22:49)
[2019-07-03] MEDS: LACTATED RINGERS 1,000 ML 125 ML IV (17:43)
[2019-07-03] MEDS: HYDROXYCHLOROQUINE 200 MG TABLET 400 MG PO (17:48)
[2019-07-03] MEDS: OXYCODONE IR 10 MG TABLET PO ×2 (18:19→21:36)
--- NOTE | 2019-07-03 18:22 | PC.ADMIT ---
Addendum entered by Sue Harding R.N. 07/03/19 18:22: Pt arrived to room 209 via bed from PACU. Drowsy but A/O. H/V compressed and draining. Barahona draining to gravity. Drsg to back c/d/i. VSS. 2L NC sats 97% CPOX on. Rates post-op back pain 02/08. Medicated per aug. Oriented to room call system. Gen dinner given; Tolerating well. Bed alarm on. Original Note: [address] Admission Note: The patient,Tatiana Duong,64 y/o, was given written information regarding hospital policies, unit procedures and contact persons. Patient's smoking status: Former smoker. Pt arrived to room 2 Vital Signs - 8 hr 07/03/19 11:15 07/03/19 16:30 07/03/19 16:35 Temperature 98.2 F 98.4 F Pulse Rate 102 H 85 85 Respiratory Rate 16 12 10 L Blood Pressure 146/98 H 146/79 H 152/78 H Pulse Oximetry 95 97 96 07/03/19 16:40 07/03/19 16:45 07/03/19 16:50 Temperature Pulse Rate 85 85 84 Respiratory Rate 14 15 15 Blood Pressure 171/92 H 169/93 H 150/88 H Pulse Oximetry 96 96 96 07/03/19 16:55 07/03/19 17:00 07/03/19 17:05 Temperature 98.1 F Pulse Rate 84 83 84 Respiratory Rate 15 11 L 14 Blood Pressure 169/91 H 157/92 H 161/90 H Pulse Oximetry 96 96 94 07/03/19 17:15 07/03/19 17:20 07/03/19 17:50 Temperature 97.9 F 97.9 F Pulse Rate 84 86 86 Respiratory Rate 14 16 16 Blood Pressure 151/92 H 131/89 140/83 Pulse Oximetry 94 94 94
[2019-07-03] MEDS: DOCUSATE 100 MG CAPSULE PO (21:34)
[2019-07-03] MEDS: PREGABALIN 75 MG CAPSULE 150 MG PO (21:35)
[2019-07-03] MEDS: raNITIdine 150 MG CAPSULE PO (21:35)
[2019-07-03] MEDS: SENNOSIDES 8.6 MG TABLET 17.2 MG PO (21:35)
[2019-07-03] MEDS: ATORVASTATIN 20 MG TABLET 80 MG PO (21:35)
[2019-07-04] MEDS: OXYCODONE IR 10 MG TABLET PO ×8 (00:32→22:20)
[2019-07-04] MEDS: HYDROMORPHONE 0.5 MG INJ IV ×2 (01:46→05:22)
[2019-07-04] MEDS: LACTATED RINGERS 1,000 ML 125 ML IV (02:38)
[2019-07-04] MEDS: CEFAZOLIN 2 GM/100 ML FROZ.PIGGY IV (02:58)
[2019-07-04] MEDS: ALPRAZolam 0.25 MG TABLET PO (02:58)
[2019-07-04 05:00] VITALS: BP 103/53; PULSE 72; TEMP 36.4; O2SAT 96
[2019-07-04 07:21] LABS: Hematocrit 38.5 % (36-46); Hemoglobin 12.7 g/dL (12.0-16.0)
--- NOTE | 2019-07-04 07:30 | PM.PNPO.1 ---
Subjective Subjective Date Patient Seen: 07/04/19 Time Patient Seen: 07:30 Interval history: Pain is about 7/10. Pain in the back as well as going down the posterolateral aspect of the right leg. Left leg feels fine although unchanged weakness. Exam Vital Signs (past 8 hours): - 07/04/19 05:00 Temperature 97.5 F L Pulse Rate 72 Blood Pressure 103/53 L Pulse Oximetry 96 Oxygen Delivery Method Nasal Cannula Oxygen Flow Rate 2 Const Orientation: alert and oriented x3 Back/Spine/Pelvis Other: CDI. Drain 230/90 over past 2 shifts 5/5 motor both lower extremities except for left 3/5 AT, 0/5 EHL, 3/5 GC Objective Labs Result Diagrams: 07/04/19 06:47 07/04/19 06:47 Labs: Laboratory Results - last 24 hr 07/04/19 06:47 Hgb 12.7 Hct 38.5 Assessment & Plan Post-op Postoperative Procedures: Procedures Operation Date: 07/03/19 12:15 Actual Procedures Side Surgeon p Revision left laminectomy & cyst exision L5S1. L5S1 hardware removal and fusion exploration, poss. refusion and reinstrumentation Sincere Hawley MD She is having new right leg pain. Most likely this is from the amount of stretch that had to be performed to resect the facet cyst. I'm going to put her on a dose of IV steroids. If this doesn't improve, consider CT scan.
[2019-07-04 07:31] LABS: BUN Creatinine Ratio 28.6 (6-22); Blood Urea Nitrogen 20 mg/dL (7-17); Calcium 8.8 mg/dL (8.4-10.2); Carbon Dioxide 30 mmol/L (22-32); Chloride 101 mmol/L (98-107); Estimated Glomerular Filt Rate > 60.0 mL/min (>60); Glucose 110 mg/dL (80-110); HEMOLYSIS 39 (0-50); Potassium 3.2 mmol/L (3.4-5.1); Sodium 137 mmol/L (137-145)
[2019-07-04] MEDS: CHOLECALCIFEROL (VITAMIN D3) 1,000 UNIT TABLET 4000 UNIT PO (07:58)
[2019-07-04] MEDS: CITALOPRAM 20 MG TABLET 40 MG PO (07:59)
[2019-07-04] MEDS: DEXAMETHASONE 10 MG/ML VIAL IV (07:59)
[2019-07-04] MEDS: DOCUSATE 100 MG CAPSULE PO ×2 (07:59→21:02)
[2019-07-04] MEDS: predniSONE 5 MG TABLET PO (07:59)
[2019-07-04] MEDS: LEFLUNOMIDE 20 MG TABLET PO (07:59)
[2019-07-04] MEDS: raNITIdine 150 MG CAPSULE PO ×2 (07:59→21:02)
[2019-07-04 08:00] VITALS: BP 109/49; PULSE 76; RESP 16; TEMP 36.1; O2SAT 96
[2019-07-04 09:59] VITALS: O2SAT 88; O2SAT 95
--- NOTE | 2019-07-04 11:34 | PT.IIE ---
Current Diagnoses Spinal stenosis, lumbar region with neurogenic claudication (07/03/19) Other bursal cyst, other site (07/03/19) Unspecified fracture of unspecified lumbar vertebra, subsequent encounter for fracture with nonunion (07/03/19) Surgery Performed Operation Date: 07/03/19 12:15 Actual Procedures p Revision left laminectomy & cyst exision L5S1. L5S1 hardware removal and fusion exploration, poss. refusion and reinstrumentation - Sincere Hawley MD Surgical History (Last Updated 06/19/19 @ 14:00 by Jodi Snyder RN) History of lumbar fusion (Acute 08/14/17) History of lumbar spinal fusion (Acute 05/21/18) Hx of cholecystectomy (Acute ~2012) Hx of thyroidectomy (Acute ~1998) Hx of tubal ligation (Acute) Status post cholecystectomy (Deleted) Medical History (Last Updated 05/08/18 @ 12:47 by Jodi Snyder RN) Anxiety (Acute) Asthma (Acute) Chronic back pain (Acute) Depression (Acute) Easy bruisability (Acute) Hyperlipidemia (Acute) Hypothyroidism (Acute) Impaired memory (Acute) Polycythemia vera (Acute) Sciatica (Acute) Physical Therapy Inpatient Evaluation/Re-Eval M1 PT/OT-IP Prior Functional Status Start: 07/04/19 08:26 Freq: NEEDED Status: Active Protocol: Document 07/04/19 10:05 (Rec: 07/04/19 11:33 [id number]) Medical Review Prior Functional Status Medical History Reviewed Yes Communication able to make needs known. no deficits noted Mobility and Gait Pt uses SPC/ furniture and table to cruise within her RV. Uses 4WW at all times for community mobility. Pt also wears L AFO d/t foot drop sicjean 2017. Activities of Daily Living and IADL's independent for ADLs. Uses BSC to shower. Has a friend in town to assist her for IADLs such as grocery shop, banking and MD appt. Social History Household Members none Living Arrangements RV Number of Floors (Floors) One Floor Number of Stairs To Enter/Railing? 4STE with B rails 2 small steps from main lviing to bathroom Home Environment High Toilet,Walk in Shower Home Equipment Front Wheel Walker,Four Wheel Walker,Straight Cane,Bedside Commode,Shower Seat with Backrest,Hand Held Shower,Long Handled Shoe Horn,Financial Systems Administrator, Grab Bars In Shower Additional Social History Comment Pt lives alone in a RV which is her ex-hsuband property in [place]. Pt had multiple major back surgeries and the most recent one was in May for cyst removal. Pt was transferred to [facility] for 2 weeks rehab and able d/c back to . M2 PT-IP Current Condition Start: 07/04/19 08:26 Freq: NEEDED Status: Active Protocol: Document 07/04/19 10:05 (Rec: 07/04/19 11:33 [email or web address]) Physical Therapy Current Condition Current Condition Evaluation Date 07/04/19 Treatment Diagnosis Revision laminectomy L5-S1, radicular pain to BLE, difficulty in walking Onset Date 07/03/19 Precautions Lumbar Precautions Log Roll,No Twisting,Limit Bending,Lifting Restriction of 10 lbs,Gait Belt above Incisional Area Weight Bearing Status Weight Bearing Status Full Weight Bearing M3 PT-IP Subjective Start: 07/04/19 08:26 Freq: NEEDED Status: Active Protocol: Document 07/04/19 10:05 (Rec: 07/04/19 11:33 [email or web address]) Subjective Physical Therapy Visit Type Type Initial Evaluation Visit Start Time 10:05 Visit Stop Time 10:37 Total Visit Minutes 32 Notes Per EMR, there's new onset of RLE pain since sx. Number of RESEARCH LEADER Visits 0 Physical Therapy Visit Comments Patient Comments I started to have shooting pain down to my R leg and i dont know why. Patient Goals To return home once she feels safe. Therapy Pain Assessment Pain When Pain Assessed During Mobility Pain Present Pain Present Pain Reported Location Back Intensity 7 Scale Used Numeric (1 - 10) Description Acute Pain Behaviors Facial Grimacing,Holding Area Pain Management Techniques Apply Cold,Distraction, Elevation,Re-positioning, Timing of Activity with Medications M4 PT-IP Mobility and Gait Start: 07/04/19 08:26 Freq: NEEDED Status: Active Protocol: Document 07/04/19 10:05 (Rec: 07/04/19 11:33 [email or web address]) PT-Bed Mobility Assessment Rolling Type of Rolling Roll to Left Level of Assist Contact Guard Assistance Supine to Sit Supine to Sit Moderate Assistance,Head of Bed Elevated,Bedrails Scooting Scooting to Edge of Bed Minimal Assistance PT-Transfer Assessment Sit to and From Stand Sit to and from Stand Minimal Assistance,1 Person Assistance,Use of Upper Extremities Equipment Transfer Assistive Device Gait Belt,Front Wheeled Walker Orthotic/Prosthetic Devices or Brace: No Transfers Transfer Destination Bed,Chair Transfer Technique FWW Transfer Ability Level of Assist Minimal Assistance,Use of Upper Extremities Comments Mobility Comments Pt was in bed upon assessment. BP 105/62 HR 77 O2 94% without NC. Pt states she has adjustable bed at home and she sleeps in elevated HOB position around 30 degrees. Pt did not perfrom a full log roll but a half log roll f/b SL to sit. with mod A by pulling PT's UE. Pt appears to have severe pain on R buttock and LE. She was unable to weight shift to R d/t pain and needed to use RUE support on bed rail. She then used shoe horn to anatoly shoes and L AFO but unsuccessful due to post op precautions. Assisted pt anatoly footwear after. She then stood up with min A and FWW. She was unable to weight shift to R d/t pain and requested to sit down after 15 seconds. She then stood up for 2nd time and proceeded to amb from L side of the bed to bedside chair. She demonstrates a step to gait with primarily WB through BUEs and LLE, along with a wobbly gait. Pt states this is not her normal gait and is much slower. Pt was able to safely descend for chair transfer and assisted pt to reclined position with pillow underneath her RLE for relief. call light within reach and notified nrusing regarding her new onset of RLE pain. Gait Assessment Gait Gait Assistance Required: Contact Guard Assist Distance (Feet) 8 Able to Maintain Weight Bearing Status Yes During Gait Assistive Devices Assistive Device Gait Belt,Front Wheeled Walker Orthotic/Prosthetic Devices or Brace: No Gait Deviations General Gait Pattern Antalgic,Decreased Stride Length,Decreased Feet Clearance,Flexed Trunk,Lateral Trunk Lean,Step-to Gait Factors Limiting Gait Function Factors Limiting Gait Function Decreased Activity Tolerance, Decreased Strength,Limited Range of Motion,Pain,Poor Balance,Poor Safety Awareness Comments Gait Comments see mobility comment Stair Climbing Assessment Comments Stair Climbing Comments unable to assess due to limited mob. PT-Balance Assessment Sitting Balance and Reactions Static Sitting Balance Ability Normal Dynamic Sitting Balance Ability Good Standing Balance and Reactions Static Standing Balance Ability Good Dynamic Standing Balance Ability Fair Device Used FWW, L AFO M5 PT-IP Objective Assessments Start: 07/04/19 08:26 Freq: NEEDED Status: Active Protocol: Document 07/04/19 10:05 (Rec: 07/04/19 11:33 [email or web address]) Orientation Orientation/Cognition Level of Alertness Alert Orientation Name,Age,Birthday,Month,Date, Year,Day of Week,Place, Situation Language Function Ability No Deficits Noted Safety Awareness Understands Safety Issues Memory Description No Deficits Noted Gross Range of Motion Upper Extremity ROM Assessment Within Functional Limits Lower Extremity ROM Assessment Left Impaired Impairments trace for L ankle DF Strength Upper Extremity Strength Assessment Within Functional Limits Lower Extremity Strength Assessment Left Impaired Ankle 1/5 Comments Strength Comments trace 1/5 for L ankle DF Coordination Assessment Gross Coordination Gross Coordination WNL Sensation Assessment Sensation Gross Sensation WNL Muscle Tone Muscle Tone WNL Yes M6 PT-IP Treatment Start: 07/04/19 08:26 Freq: NEEDED Status: Active Protocol: Document 07/04/19 10:05 (Rec: 07/04/19 11:33 [email or web address]) Physical Therapy Treatment Education Education Provided Precautions,Weight Bearing Status,Post-Op Packet,Safety M7 PT-IP Assessment and Plan Start: 07/04/19 08:26 Freq: NEEDED Status: Active Protocol: Document 07/04/19 10:05 (Rec: 07/04/19 11:33 [email or web address]) PT Summary Assessment and Plan Potential Rehabilitation Potential Excellent Status of Condition at Evaluation Stable Summary Impairments Pain,ROM,Strength,Balance,Tone ,Bed Mobility,Transfers,Gait, Activity Tolerance Assessment Summary Pt is a mod complexity 64yo female s/p revision laminectomy L5-S1 for previous cyst removal, along with previous extensive major back surgeries. Pt has L foot drop at baseline and used L post leaf AFO at all times. Pt apparently has new onset of RLE pain since sx which also significantly limits her mobility upon assessment. Pt has difficulty WB on her R side in seated / standing position. She was only able to amb approx 8 feet with primarily WB through BUEs and LLE. Pt is currently far from baseline and would recommend skilled rehab to improve her mobility and strength priot to d/c back to her RV. Goals Bed Mobility Goal Contact Guard Assistance Transfer Goal Contact Guard Assistance,Front Wheeled Walker,Four Wheeled Walker Gait Goal Contact Guard Assistance,Front Wheel Walker,Four Wheel Walker Gait Distance 50 Other Goals 4STE with Brails prior to home d./c Days to Meet Goals 10 Frequency of Treatment Frequency Of Treatment Twice a Day Treatment Plan Physical Therapy Treatment Plan Bed Mobility Training,Transfer Training,Gait Training, Therapeutic Exercise,Balance Retraining,Post Op Education, Discharge Planning,Hot or Cold Pack,Neuromuscular Re-ed Other Recommendations and Next Treatment log roll and supine to sit Focus review precautions monitor her RLE pain mobility as zully Recommendations To Nursing Amount of Assist Needed 2 Person Assist Discharge Recommendations PT Discharge Recommendations SNF Rehab
[2019-07-04 12:00] VITALS: BP 115/56; PULSE 77; RESP 18; TEMP 36.5; O2SAT 92
[2019-07-04] MEDS: DEXAMETHASONE 4 MG/ML VIAL IV ×2 (12:09→18:14)
--- NOTE | 2019-07-04 13:20 | OT.IP.EVAL ---
Current Diagnoses Spinal stenosis, lumbar region with neurogenic claudication (07/03/19) Other bursal cyst, other site (07/03/19) Unspecified fracture of unspecified lumbar vertebra, subsequent encounter for fracture with nonunion (07/03/19) Surgery Performed Operation Date: 07/03/19 12:15 Actual Procedures p Revision left laminectomy & cyst exision L5S1. L5S1 hardware removal and fusion exploration, poss. refusion and reinstrumentation - Sincere Hawley MD Past Medical History (Last Updated 05/08/18 @ 12:47 by Jodi Snyder RN) Anxiety (Acute) Asthma (Acute) Chronic back pain (Acute) Depression (Acute) Easy bruisability (Acute) Hyperlipidemia (Acute) Hypothyroidism (Acute) Impaired memory (Acute) Polycythemia vera (Acute) Sciatica (Acute) Surgical History (Last Updated 06/19/19 @ 14:00 by Jodi Snyder RN) History of lumbar fusion (Acute 08/14/17) History of lumbar spinal fusion (Acute 05/21/18) Hx of cholecystectomy (Acute ~2012) Hx of thyroidectomy (Acute ~1998) Hx of tubal ligation (Acute) Status post cholecystectomy (Deleted) Occupational Therapy Inpatient Evaluation/Re-Eval M M1 PT/OT-IP Prior Functional Status Start: 07/04/19 16:16 Freq: NEEDED Status: Active Protocol: Document 07/04/19 13:20 [facility] (Rec: 07/04/19 16:35 [facility] [email or web address]) Medical Review Prior Functional Status Medical History Reviewed Yes Communication able to make needs known. no deficits noted Mobility and Gait Per PT eval-Pt uses SPC/ furniture and table to cruise within her RV. Uses 4WW at all times for community mobility. Pt also wears L AFO d/t foot drop since 2018 from last back sx. Activities of Daily Living and IADL's Per Pt eval-independent for ADLs. Uses BSC to shower. Has a friend in town to assist her for IADLs such as grocery shop, banking and MD appt. Per pt told OT that she uses a shower stool to shower and independently does her ADl's with increased time and adaptive devices, does her own finances and medications. Social History Household Members none Living Arrangements RV Number of Floors (Floors) One Floor Number of Stairs To Enter/Railing? 4STE with B rails 2 small steps from main lviing to bathroom Home Environment High Toilet,Walk in Shower Home Equipment Front Wheel Walker,Four Wheel Walker,Straight Cane,Bedside Commode,Shower Seat without Backrest,Hand Held Shower,Long Handled Shoe Horn,Cnc Milling Machinist, Grab Bars In Shower Additional Social History Comment Pt lives alone in a RV which is her ex- property in [place]. Pt had multiple major back surgeries and the most recent one was in May for cyst removal. Pt was transferred to [facility] for 2 weeks rehab and able d/c back to . M2 OT-IP Current Condition Start: 07/04/19 16:16 Freq: Status: Active Protocol: Document 07/04/19 13:20 [facility] (Rec: 07/04/19 16:35 [facility] [email or web address]) Occupational Therapy Current Condition Current Condition Evaluation Date 07/04/19 Treatment Diagnosis Revision laminectomy L5-S1 with excision of facet cyst. Diagnosis Onset Date 07/03/19 Post Operative Precautions Lumbar Precautions Log Roll,No Twisting,Limit Bending,Lifting Restriction of 10 lbs,Gait Belt above Incisional Area Weight Bearing Status Weight Bearing Status Weight Bear as Tolerated M3 OT- IP Subjective and Pain Start: 07/04/19 16:16 Freq: Status: Active Protocol: Document 07/04/19 13:20 [facility] (Rec: 07/04/19 16:35 [facility] [email or web address]) OT- Subjective Occupational Therapy Visit Type Type Initial Evaluation Visit Start Time 13:20 Visit Stop Time 13:57 Total Visit Minutes 37 Occupational Therapy Visit Comments Patient Comments Pt willing to get up after lunch. Patient/Caregiver Goals To go to skilled rehab prior to going home. OT Pain Assessment Pain When Pain Assessed During Mobility Pain Present Pain Present Pain Reported M4 OT- IP ADL's Start: 07/04/19 16:16 Freq: Status: Active Protocol: Document 07/04/19 13:20 [facility] (Rec: 07/04/19 16:35 [facility] [email or web address]) OT [id number] Comments OT Self-Feeding Comments Not at meal time. OT ADL-Grooming General Evaluation Grooming Ability Standby Assistance Areas Needing Assistance Retrieving/Set-up of Grooming Items Comments OT Grooming Comments Pt heavily leans onto the counter for balance to brush her teeth and not able to complete the rest of grooming due to too tired and having to sit down. OT ADL-Oral Care General Eval Oral Care Ability Independent OT ADL-Dressing General Eval Lower Body Dressing Ability Maximum Assistance Areas Needing Assistance Shoes,Orthosis/Prosthesis Comments OT Dressing Comments Assist to hold AFO for left foot to get into the slipper and to assist for velcro straps as too far down to reach due to back precautions. OT ADL-Toileting Comments OT Toileting Comments Pt not having to use the toilet at this time. OT ADL-Bathing Comments OT Bathing Comments Too tired to attempt at this time. M5 OT- IP IADL's Start: 07/04/19 16:16 Freq: Status: Active Protocol: Document 07/04/19 13:20 [facility] (Rec: 07/04/19 16:35 [facility] [email or web address]) OT-Instrumental Activities of Daily Living Home Safety Awareness Awareness of Need for Assistance at Home Good Awareness Home Safety Comments At this time pt genet not be able to do IADl needs due to decreased activity tolerance. M6 OT- IP Functional Cognition Start: 07/04/19 16:16 Freq: Status: Active Protocol: Document 07/04/19 13:20 [facility] (Rec: 07/04/19 16:35 [facility] [email or web address]) Cognitive Factors Limiting Selfcare Function Cognitive Ability Level of Alertness Alert Patient Orientation Name,Place,Situation Attention Span Ability Capable of Focused Attention, Capable of Sustained Attention Ability to Follow Commands Able to Follow One Step Commands Safety Awareness Decreased Ability to Apply Precautions,Underestimates Need for Assistance Cognitive Comments Cognitive Assessment Comments Pt needing cues to incorporate back precautions for bed mobility and positioning needs in the bed. OT- Vision and Hearing OT- Hearing Assessment OT- Hearing Assessment WFL M7 OT- IP Mobility and Balance Start: 07/04/19 16:16 Freq: Status: Active Protocol: Document 07/04/19 13:20 [facility] (Rec: 07/04/19 16:35 [facility] [email or web address]) OT- Bed Mobility Assessment Rolling Type of Rolling Roll to Left Level of Assistance Contact Guard Assistance, Bedrails OT-Transfer Assessment Sit to and From Stand Sit to and from Stand Contact Guard Assistance Transfers Transfer Ability Minimal Assistance Technique Transfer Destination Bed Devices Transfer Assistive Devices Gait Belt,Front Wheeled Walker Comments Mobility Comments Pt's right left at times tends to buckle and heavy use of BUE on the handles on the FWW to help move her legs. Pt tires easily and having to sit down. OT- Balance Assessment Sitting Balance and Reactions Static Sitting Balance Ability Normal Dynamic Sitting Balance Ability Good Standing Balance and Reactions Static Standing Balance Ability Poor M8 OT- IP Objective Assessments Start: 07/04/19 16:16 Freq: Status: Active Protocol: Document 07/04/19 13:20 [facility] (Rec: 07/04/19 16:35 [facility] [email or web address]) OT Gross Range of Motion Upper Extremity Range of Motion Assessment Bilaterally Impaired ROM Impairments Bilateral shoulder flexion 0- 70 and has to bend her head forwards in order to comb her hair or wash her hair per pt. OT Strength Comments Strength Comments From proximal to distal 3-/5 to 4-/5. OT-Muscle Tone Assessment Muscle Tone WNL Yes M9 OT- IP Assessment and Plan Start: 07/04/19 16:16 Freq: Status: Active Protocol: Document 07/04/19 13:20 [facility] (Rec: 07/04/19 16:35 [facility] [email or web address]) OT Summary Assessment and Plan Potential Rehabilitation Potential Good Analytic Complexity at Evaluation Low Summary OT Impairments Pain,Strength,Balance, Functional Cognition, Functional Mobility,Grooming, Dressing,Toileting,Bathing, Toilet Transfers,Shower Transfers Progress Towards Goals Slow Progress due to Pain,Slow Progress due to Activity Tolerance Assessment Summary Pt low complexity and main barriers are pain, decreased activity tolerance, now needing assist for AFO due to back precautions, unsteady on her feet and new right LE buckling and pain noted. Pt far from baseline and prior lives alone and only had assist for grocery shopping and transport needs. Pt looking to go to skilled rehab prior to going home. Goals Grooming Goal Independent Dressing Goal Independent Toileting Goal Independent Bathing Goal Independent Toilet Transfer Goal Independent Shower Transfer Goal Independent Patient/Caregiver Education Goal Demonstrate Post-Op Precautions Days to Meet Goals 14 Frequency of Treatment Frequency Of Treatment Once a Day Treatment Plan OT Treatment Plan ADL Training,Functional Cognition Training,Functional Mobility,Patient/Family Education,Discharge Planning Other Treatment Recommendations and Next Use of adaptive equipment to Treatment Focus anatoly AFO. Standing to complete all grooming needs. Discharge Recommendations OT Discharge Recommendations SNF Rehab Home Equipment Needs Defer to SNF
--- NOTE | 2019-07-04 13:21 | PC.NURSE ---
Patient is A&Ox3. Given 10mg of oxycodone around 0900 and started Patient on Decadron. 10mg iv given this morning, and then 4mg at lunch time. Tatiana was also given 10mg of oxycodone. This has been helpful for her, she states that the steroid iv has also helped her. Pt up to chair only for a half hour. Explained to her that she needs to try and sit up for longer periods of time and she was not too impressed with this.. Stated to the SURFACE HYDROLOGIST Physical therapy told me that I could get up anytime I wanted. This RN was firm about patient trying to stay up, explained to her that if she lays in bed to much that she could possibly develop Pneumonia. She stated that she was aware of this but was in to much pain to stay up in the chair. Tatiana is now working with occupational therapy and seems to be content. Dressing to lower back is clean, dry and intact. She is in bed and ate well at lunch.
[2019-07-04] MEDS: POTASSIUM CHLORIDE 20 MEQ TAB PO (13:40)
--- NOTE | 2019-07-04 15:07 | CM.DANOTE ---
Assessment completed on pt. IP 07/03/19 s/p spinal surgery. Pt. of Dr. Hawley. pt. A&O x 4 during CM assessment. Pt. expresses wish to return home after rehabing at [facility]. Lives on a family property close to daughter and son who take care of her needs. He ex- is also local and they have an amiable relationship so she can reach out to him if she needs anything. Uses walker at baseline. Has necessary equipment at home already (toilet seat, shower bar, etc) so does not think she'll have any needs after discharge from [facility]. Called November and she feels confident that there will be a bed when pt. is discharged Sunday or Sunday. This is good because pt. was not open to considering another option at this time. No PASSAR or paperwork started at this time.
--- NOTE | 2019-07-04 15:45 | PT.IPTN ---
Current Diagnoses Spinal stenosis, lumbar region with neurogenic claudication (07/03/19) Other bursal cyst, other site (07/03/19) Unspecified fracture of unspecified lumbar vertebra, subsequent encounter for fracture with nonunion (07/03/19) Surgery Performed Operation Date: 07/03/19 12:15 Actual Procedures p Revision left laminectomy & cyst exision L5S1. L5S1 hardware removal and fusion exploration, poss. refusion and reinstrumentation - Sincere Hawley MD Physical Therapy Treatment Note M2 PT-IP Current Condition Start: 07/04/19 08:26 Freq: NEEDED Status: Active Protocol: Document 07/04/19 10:05 HH (Rec: 07/04/19 11:33 [email or web address]) Physical Therapy Current Condition Current Condition Evaluation Date 07/04/19 Treatment Diagnosis Revision laminectomy L5-S1, radicular pain to BLE, difficulty in walking Onset Date 07/03/19 Precautions Lumbar Precautions Log Roll,No Twisting,Limit Bending,Lifting Restriction of 10 lbs,Gait Belt above Incisional Area Weight Bearing Status Weight Bearing Status Full Weight Bearing M3 PT-IP Subjective Start: 07/04/19 08:26 Freq: NEEDED Status: Active Protocol: Document 07/04/19 15:45 AB (Rec: 07/04/19 18:21 AB [id number]) Subjective Physical Therapy Visit Type Type Treatment Note Visit Start Time 15:45 Visit Stop Time 16:09 Total Visit Minutes 24 Number of GAS EXAMINER Visits 0 Physical Therapy Visit Comments Patient Comments pt agreeable to do PT Therapy Pain Assessment Pain When Pain Assessed At Rest Pain Present Pain Present Pain Reported Location Back Intensity 7 Scale Used Numeric (1 - 10) Description Spasm Pain Behaviors Holding Area Pain Management Techniques Re-positioning,Timing of Activity with Medications M4 PT-IP Mobility and Gait Start: 07/04/19 08:26 Freq: NEEDED Status: Active Protocol: Document 07/04/19 15:45 AB (Rec: 07/04/19 18:21 AB [id number]) PT-Bed Mobility Assessment Rolling Type of Rolling Log Rolling Level of Assist Minimal Assistance,Moderate Assistance Supine to Sit Supine to Sit Minimal Assistance,Moderate Assistance,1 Person Assistance Sit to Supine Sit to Supine Maximum Assistance,1 Person Assistance Scooting Scooting to Edge of Bed Standby Assistance PT-Transfer Assessment Sit to and From Stand Sit to and from Stand Minimal Assistance,1 Person Assistance Equipment Transfer Assistive Device Gait Belt,Front Wheeled Walker Orthotic/Prosthetic Devices or Brace: No Comments Mobility Comments pt agreed to do PT but wants to go back in bed afterwards. completed supine to sit log roll min to mod A and cues. completed sit to stand min A and cues. ambulated in room . assisted back to bed. completed sit to supine max A and cues. pt requires assistance to elevated BLE up the bed. positioned pt in bed . call light and table placed wtihin reach. Gait Assessment Gait Gait Assistance Required: Minimum Assistance Distance (Feet) 20 Able to Maintain Weight Bearing Status Yes During Gait Assistive Devices Assistive Device Gait Belt,4 Wheeled Walker Orthotic/Prosthetic Devices or Brace: No Gait Deviations General Gait Pattern Antalgic,Decreased Stride Length,Decreased Feet Clearance,Step-to Gait Factors Limiting Gait Function Factors Limiting Gait Function Decreased Activity Tolerance, Decreased Strength,Difficulty Following Directions,Limited Range of Motion,Pain,Poor Balance,Poor Safety Awareness M5 PT-IP Objective Assessments Start: 07/04/19 08:26 Freq: NEEDED Status: Active Protocol: Document 07/04/19 10:05 (Rec: 07/04/19 11:33 [id number]) Orientation Orientation/Cognition Level of Alertness Alert Orientation Name,Age,Birthday,Month,Date, Year,Day of Week,Place, Situation Language Function Ability No Deficits Noted Safety Awareness Understands Safety Issues Memory Description No Deficits Noted Gross Range of Motion Upper Extremity ROM Assessment Within Functional Limits Lower Extremity ROM Assessment Left Impaired Impairments trace for L ankle DF Strength Upper Extremity Strength Assessment Within Functional Limits Lower Extremity Strength Assessment Left Impaired Ankle 1/5 Comments Strength Comments trace 1/5 for L ankle DF Coordination Assessment Gross Coordination Gross Coordination WNL Sensation Assessment Sensation Gross Sensation WNL Muscle Tone Muscle Tone WNL Yes M6 PT-IP Treatment Start: 07/04/19 08:26 Freq: NEEDED Status: Active Protocol: Document 07/04/19 15:45 AB (Rec: 07/04/19 18:21 AB [id number]) Physical Therapy Treatment Education Education Provided Precautions,Safety M7 PT-IP Assessment and Plan Start: 07/04/19 08:26 Freq: NEEDED Status: Active Protocol: Document 07/04/19 15:45 AB (Rec: 07/04/19 18:21 AB [id number]) PT Summary Assessment and Plan Potential Rehabilitation Potential Good Summary Impairments Pain,ROM,Strength,Balance, Coordination,Sensation,Tone, Cognition,Bed Mobility, Transfers,Gait,Activity Tolerance Progress Towards Goals Slow Progress due to Pain,Slow Progress due to Activity Tolerance Assessment Summary pt requiring min A with mobility and will have to be more independent than current level. pt will require SNF rehab to improve strength and mobility. Goals Bed Mobility Goal Contact Guard Assistance Transfer Goal Contact Guard Assistance,Front Wheeled Walker,Four Wheeled Walker Gait Goal Contact Guard Assistance,Front Wheel Walker,Four Wheel Walker Gait Distance 50 Other Goals 4STE with Brails prior to home d./c Days to Meet Goals 10 Frequency of Treatment Frequency Of Treatment Twice a Day Treatment Plan Physical Therapy Treatment Plan Bed Mobility Training,Transfer Training,Gait Training, Therapeutic Exercise,Balance Retraining,Post Op Education, Discharge Planning,Hot or Cold Pack,Neuromuscular Re-ed Other Recommendations and Next Treatment log roll and supine to sit Focus review precautions monitor her RLE pain mobility as zully Recommendations To Nursing Amount of Assist Needed 1 Person Assist Discharge Recommendations PT Discharge Recommendations SNF Rehab
[2019-07-04 16:35] VITALS: BP 123/64; PULSE 80; RESP 18; TEMP 35.9; O2SAT 97
[2019-07-04] MEDS: HYDROXYCHLOROQUINE 200 MG TABLET 400 MG PO (18:13)
[2019-07-04] MEDS: hydrOXYzine pamoate 25 MG CAPSULE PO (19:09)
[2019-07-04 19:31] VITALS: BP 120/72; PULSE 86; RESP 18; TEMP 36.7; O2SAT 95
[2019-07-04] MEDS: ATORVASTATIN 20 MG TABLET 80 MG PO (21:00)
[2019-07-04] MEDS: PREGABALIN 75 MG CAPSULE 150 MG PO (21:02)
[2019-07-04] MEDS: SENNOSIDES 8.6 MG TABLET 17.2 MG PO (21:02)
[2019-07-05] VITALS (8 sets, daily range): BP systolic 101–133; BP diastolic 52–70; PULSE 72–85; RESP 16–18; TEMP 36.4–37.1; O2SAT 88–95
--- NOTE | 2019-07-05 | DI.CT.S_ITS ---
PROCEDURE: CT LUMBAR SPINE WO CON INDICATIONS: RLE after surgery TECHNIQUE: Noncontrast 3 mm thick sections acquired from the T12 level to the sacrum. Sagittal and coronal reformats were constructed. For radiation dose reduction, the following was used: automated exposure control. COMPARISON: [facility], CR, XR LUMBAR SPINE 2-3V, 07/03/2019, 13:00. [facility], MR, MR LUMBAR SPINE WO/W CON, 03/18/2018, 13:39. [facility], CR, XR LUMBAR SPINE 2-3V, 05/21/2018, 16:15. [facility], CT, CT LUMBAR SPINE WO CON, 02/05/2019, 12:51. [facility], NM, NM BONE SPECT, 05/07/2019, 14:07. FINDINGS: Image quality: Excellent. Bones: No acute vertebral body compression fractures. No suspicious lytic or blastic bony lesions. Central spinal caliber is of normal overall caliber. No pars defects. Extensive postoperative changes are seen, with pedicle screws seen from the superior aspect of this study at T11 through the S1 level. There is lucency seen adjacent to the S1 screws, left greater than right. No other findings of hardware failure or hardware loosening can be seen. Disc spacers are seen at L1-L2, L2-L3, L3-L4, L4-L5, and L5-S1. The disc spacer at L5-S1 is posteriorly located, and this is a stable finding compared to the prior CT. S-shaped scoliotic curvature is seen. There is minimal retrolisthesis seen at L1-L2 and L2-L3. Since the prior CT examination, there has been surgery at the L5-S1 level, with removal of the previously seen calcified mass within the spinal canal. No central canal narrowing is now seen at this level. A postoperative drain is seen posteriorly at the L5-S1 level. The previously seen prominent neural foraminal narrowing on the left L5-S1 has resolved. Multiple levels of relatively prominent degenerative change are seen, which otherwise are regarded to be stable. Soft tissues: No retroperitoneal masses or hematomas. Visualized aorta is normal in caliber. Atherosclerotic calcification is noted. IMPRESSION: Interval postoperative change, with removal of the calcified mass within the central canal at L5-S1 level. The central canal at this level is now widely patent. There has been interval resolution of the previously seen prominent left-sided neural foraminal narrowing L5-S1. Otherwise, the postoperative and degenerative changes are considered to be stable. Dictated by: Jorge Giraldo M.D. on 07/05/2019 at 10:21 Approved by: Jorge Giraldo M.D. on 07/05/2019 at 10:30
[2019-07-05] MEDS: DEXAMETHASONE 4 MG/ML VIAL IV ×2 (00:08→05:23)
[2019-07-05] MEDS: OXYCODONE IR 10 MG TABLET PO ×7 (01:30→20:40)
--- NOTE | 2019-07-05 06:32 | PC.NURSE ---
Pt alert and oriented. Pain controlled with oxy q 3 hours. Pt denied offer to ambulate at this time, reports she will get up after breakfast. Pt running at 95% O2 sats on 1L O2. Tried weaning pt off O2 and O2 sats dropped to 88%. O2 reapplied via NC at 1L. [place] intact and draining yellow urine. Pt has no complaints.
--- NOTE | 2019-07-05 07:53 | PM.PNPO.1 ---
Subjective Subjective Date Patient Seen: 07/05/19 Time Patient Seen: 07:54 Interval history: Pain is more tolerable but still about half of the back half going down the right leg. The leg spasms stopped her from getting up with therapy yesterday afternoon Exam Vital Signs (past 8 hours): - 07/05/19 00:05 07/05/19 04:15 07/05/19 05:14 Temperature 97.5 F L 98.0 F Pulse Rate 77 72 Respiratory Rate 16 Blood Pressure 123/70 110/67 Pulse Oximetry 92 90 L 95 07/05/19 06:31 Temperature Pulse Rate Respiratory Rate Blood Pressure Pulse Oximetry 95 Oxygen Delivery Method Nasal Cannula Oxygen Flow Rate 1 Const Orientation: alert and oriented x3 Other: CDI. 5/5 motor both lower extremities except for 2/5 AT, 0/5 EHL, 2/5 GC Objective Labs Result Diagrams: 07/04/19 06:47 07/04/19 06:47 Assessment & Plan Post-op Postoperative Procedures: Procedures Operation Date: 07/03/19 12:15 Actual Procedures Side Surgeon p Revision left laminectomy & cyst exision L5S1. L5S1 hardware removal and fusion exploration, poss. refusion and reinstrumentation Sincere Hawley MD she is still having limitations from new right leg pain. I'm going to check CT scan this morning. I think this is probably from traction at the time of surgery to remove the cyst but will double check to make sure the hardware is adequate.
[2019-07-05] MEDS: CHOLECALCIFEROL (VITAMIN D3) 1,000 UNIT TABLET 4000 UNIT PO (08:28)
[2019-07-05] MEDS: CITALOPRAM 20 MG TABLET 40 MG PO (08:29)
[2019-07-05] MEDS: LISINOPRIL 5 MG TABLET 2.5 MG PO (08:29)
[2019-07-05] MEDS: DOCUSATE 100 MG CAPSULE PO (08:29)
[2019-07-05] MEDS: raNITIdine 150 MG CAPSULE PO ×2 (08:30→20:38)
[2019-07-05] MEDS: METOPROLOL ER 25 MG TABLET PO (08:30)
[2019-07-05] MEDS: ACETAMINOPHEN 325 MG TABLET 650 MG PO ×2 (08:30→19:37)
[2019-07-05] MEDS: LEFLUNOMIDE 20 MG TABLET PO (08:31)
[2019-07-05] MEDS: predniSONE 5 MG TABLET PO (08:32)
[2019-07-05] MEDS: CHLORTHALIDONE 25 MG TABLET PO (08:32)
--- NOTE | 2019-07-05 09:24 | PT.IPTN ---
Current Diagnoses Spinal stenosis, lumbar region with neurogenic claudication (07/03/19) Other bursal cyst, other site (07/03/19) Unspecified fracture of unspecified lumbar vertebra, subsequent encounter for fracture with nonunion (07/03/19) Surgery Performed Operation Date: 07/03/19 12:15 Actual Procedures p Revision left laminectomy & cyst exision L5S1. L5S1 hardware removal and fusion exploration, poss. refusion and reinstrumentation - Sincere Hawley MD Physical Therapy Treatment Note M2 PT-IP Current Condition Start: 07/04/19 08:26 Freq: NEEDED Status: Active Protocol: Document 07/04/19 10:05 HH (Rec: 07/04/19 11:33 [id number]) Physical Therapy Current Condition Current Condition Evaluation Date 07/04/19 Treatment Diagnosis Revision laminectomy L5-S1, radicular pain to BLE, difficulty in walking Onset Date 07/03/19 Precautions Lumbar Precautions Log Roll,No Twisting,Limit Bending,Lifting Restriction of 10 lbs,Gait Belt above Incisional Area Weight Bearing Status Weight Bearing Status Full Weight Bearing M3 PT-IP Subjective Start: 07/04/19 08:26 Freq: NEEDED Status: Active Protocol: Document 07/05/19 09:24 AB (Rec: 07/05/19 11:37 AB [id number]) Subjective Physical Therapy Visit Type Type Treatment Note Visit Start Time 09:24 Visit Stop Time 09:36 Total Visit Minutes 12 Number of ARCHIVIST Visits 0 Physical Therapy Visit Comments Patient Comments pt agreeable to do PT Therapy Pain Assessment Pain When Pain Assessed At Rest Pain Present Pain Present Pain Reported Location Back Intensity 7 Scale Used Numeric (1 - 10) Pain Management Techniques Re-positioning,Timing of Activity with Medications M4 PT-IP Mobility and Gait Start: 07/04/19 08:26 Freq: NEEDED Status: Active Protocol: Document 07/05/19 09:24 AB (Rec: 07/05/19 11:37 AB [id number]) PT-Bed Mobility Assessment Rolling Type of Rolling Log Rolling Supine to Sit Supine to Sit Minimal Assistance PT-Transfer Assessment Sit to and From Stand Sit to and from Stand Contact Guard Assistance Equipment Transfer Assistive Device Gait Belt,Front Wheeled Walker Orthotic/Prosthetic Devices or Brace: Yes Transfers Transfer Destination Toilet Transfer Technique ambulated using FWW Transfer Ability Level of Assist Minimal Assistance,1 Person Assistance,Use of Upper Extremities Comments Mobility Comments completed log roll bed mobility supine to sit min A and cues. assisted pt with donning of shoes and LAFO. Pt completed sit to stand CGA and ambulated to the toilet using FWW min A and cues. pt wanted to use the toilet for a while. positioned call light next to pt and instructed to call for assistance when ready . pt understood. informed NAC that pt is using the toilet and will ask for assistance. Gait Assessment Gait Gait Assistance Required: Minimum Assistance Distance (Feet) 10 Able to Maintain Weight Bearing Status Yes During Gait Assistive Devices Assistive Device Gait Belt,Front Wheeled Walker Gait Deviations General Gait Pattern Antalgic,Decreased Stride Length,Decreased Feet Clearance Factors Limiting Gait Function Factors Limiting Gait Function Decreased Activity Tolerance, Decreased Sensation,Decreased Strength,Limited Range of Motion,Pain,Poor Balance,Poor Safety Awareness Comments Gait Comments pls refer to mobility section for details M5 PT-IP Objective Assessments Start: 07/04/19 08:26 Freq: NEEDED Status: Active Protocol: Document 07/04/19 10:05 (Rec: 07/04/19 11:33 [id number]) Orientation Orientation/Cognition Level of Alertness Alert Orientation Name,Age,Birthday,Month,Date, Year,Day of Week,Place, Situation Language Function Ability No Deficits Noted Safety Awareness Understands Safety Issues Memory Description No Deficits Noted Gross Range of Motion Upper Extremity ROM Assessment Within Functional Limits Lower Extremity ROM Assessment Left Impaired Impairments trace for L ankle DF Strength Upper Extremity Strength Assessment Within Functional Limits Lower Extremity Strength Assessment Left Impaired Ankle 1/5 Comments Strength Comments trace 1/5 for L ankle DF Coordination Assessment Gross Coordination Gross Coordination WNL Sensation Assessment Sensation Gross Sensation WNL Muscle Tone Muscle Tone WNL Yes M6 PT-IP Treatment Start: 07/04/19 08:26 Freq: NEEDED Status: Active Protocol: Document 07/05/19 09:24 AB (Rec: 07/05/19 11:37 AB [id number]) Physical Therapy Treatment Education Education Provided Precautions,Safety M7 PT-IP Assessment and Plan Start: 07/04/19 08:26 Freq: NEEDED Status: Active Protocol: Document 07/05/19 09:24 AB (Rec: 07/05/19 11:37 AB [id number]) PT Summary Assessment and Plan Potential Rehabilitation Potential Good Summary Impairments Pain,ROM,Strength,Balance, Coordination,Sensation, Cognition,Bed Mobility, Transfers,Gait,Activity Tolerance Progress Towards Goals Slow Progress due to Pain,Slow Progress due to Activity Tolerance Assessment Summary pt continues to require min A with mobility and will require SNF rehab to improve strength and independence. Goals Bed Mobility Goal Contact Guard Assistance Transfer Goal Contact Guard Assistance,Front Wheeled Walker,Four Wheeled Walker Gait Goal Contact Guard Assistance,Front Wheel Walker,Four Wheel Walker Gait Distance 50 Other Goals 4STE with Brails prior to home d./c Days to Meet Goals 10 Frequency of Treatment Frequency Of Treatment Twice a Day Treatment Plan Physical Therapy Treatment Plan Bed Mobility Training,Transfer Training,Gait Training, Therapeutic Exercise,Balance Retraining,Post Op Education, Discharge Planning,Hot or Cold Pack,Neuromuscular Re-ed Other Recommendations and Next Treatment log roll and supine to sit Focus review precautions monitor her RLE pain mobility as zully Recommendations To Nursing Amount of Assist Needed 1 Person Assist Discharge Recommendations PT Discharge Recommendations SNF Rehab
[2019-07-05] MEDS: POTASSIUM CHLORIDE 20 MEQ TAB PO (12:28)
--- NOTE | 2019-07-05 13:46 | PC.NURSE ---
AM NOTE - pt is alert, 1l93%, enc db, for breakfast, removed and sat maintained 93%, 2+ asael pedal edema, hx neuropathy and l foot drop, given 10mg po oxycodone with breakfast and prior to transport via bed for CT, later up with phys therapy, ambul around room and just out into hallway, wearing her l afo, ret to chair, states she is mobilizing better today than yesterday, discussed removal garcia and pt req that it be done after lunch and prior to next PT session, continued with the 10mg po oxycodone, discussed bm and laxatives when taking narcotic, did agree to stool softener this am.
--- NOTE | 2019-07-05 14:01 | OT.IP.TRT ---
Current Diagnoses Spinal stenosis, lumbar region with neurogenic claudication (07/03/19) Other bursal cyst, other site (07/03/19) Unspecified fracture of unspecified lumbar vertebra, subsequent encounter for fracture with nonunion (07/03/19) Surgery Performed Operation Date: 07/03/19 12:15 Actual Procedures p Revision left laminectomy & cyst exision L5S1. L5S1 hardware removal and fusion exploration, poss. refusion and reinstrumentation - Sincere Hawley MD Occupational Therapy Treatment Note M2 OT-IP Current Condition Start: 07/04/19 16:16 Freq: Status: Active Protocol: Document 07/04/19 13:20 [facility] (Rec: 07/04/19 16:35 [facility] [id number]) Occupational Therapy Current Condition Current Condition Evaluation Date 07/04/19 Treatment Diagnosis Revision laminectomy L5-S1 with excision of facet cyst. Diagnosis Onset Date 07/03/19 Post Operative Precautions Lumbar Precautions Log Roll,No Twisting,Limit Bending,Lifting Restriction of 10 lbs,Gait Belt above Incisional Area Weight Bearing Status Weight Bearing Status Weight Bear as Tolerated M3 OT- IP Subjective and Pain Start: 07/04/19 16:16 Freq: Status: Active Protocol: Document 07/05/19 14:56 [facility] (Rec: 07/05/19 15:09 [facility] [id number]) OT- Subjective Occupational Therapy Visit Type Type Treatment Note Visit Start Time 14:01 Visit Stop Time 14:18 Total Visit Minutes 17 Occupational Therapy Visit Comments Patient Comments Pt agreeing to practice donning AFO. Patient/Caregiver Goals To go to skilled rehab first and then home eventually. OT Pain Assessment Pain When Pain Assessed At Rest Pain Present Pain Present Pain Reported Location Back Intensity 6 Scale Used Numeric (1 - 10) M4 OT- IP ADL's Start: 07/04/19 16:16 Freq: Status: Active Protocol: Document 07/05/19 14:56 [facility] (Rec: 07/05/19 15:09 [facility] [id number]) OT [id number] Comments OT Self-Feeding Comments Not at meal time. OT ADL-Grooming General Evaluation Grooming Ability Minimal Assistance Comments OT Grooming Comments SBA, having to sit to her 4ww in order to do her hair. Pt needing assist to put hair tie in as not able to raise up her arms long enough to do it herself independently. Pt able to brush her teeth, and wash her face and hands on her own. OT ADL-Oral Care General Eval Oral Care Ability Independent OT ADL-Dressing General Eval Lower Body Dressing Ability Standby Assistance Areas Needing Assistance Shoes,Orthosis/Prosthesis Comments OT Dressing Comments Pt able to sit from the recliner to reach by leaning forwards at her hips to anatoly/ doff her AFO. AFO not fitting properly as pt has soft slip on shoes and would be better to have shoes with more support. OT ADL-Bathing Comments OT Bathing Comments Pt states not wanting to shower today and maybe tomorrow. M5 OT- IP IADL's Start: 07/04/19 16:16 Freq: Status: Active Protocol: Document 07/04/19 13:20 [facility] (Rec: 07/04/19 16:35 [facility] [id number]) OT-Instrumental Activities of Daily Living Home Safety Awareness Awareness of Need for Assistance at Home Good Awareness Home Safety Comments At this time pt genet not be able to do IADl needs due to decreased activity tolerance. M6 OT- IP Functional Cognition Start: 07/04/19 16:16 Freq: Status: Active Protocol: Document 07/05/19 14:56 [facility] (Rec: 07/05/19 15:09 [facility] [id number]) Cognitive Factors Limiting Selfcare Function Cognitive Ability Level of Alertness Alert Patient Orientation Name,Place,Situation Attention Span Ability Capable of Focused Attention, Capable of Sustained Attention Ability to Follow Commands Able to Follow One Step Commands Memory Description Short Term Impaired Safety Awareness Decreased Ability to Apply Precautions,Underestimates Need for Assistance Cognitive Comments Cognitive Assessment Comments Pt needing cues to incorporate precautions especially not to twist. Pt needing cues to pick her feet up more when trying to turn around to sit to 4WW. M7 OT- IP Mobility and Balance Start: 07/04/19 16:16 Freq: Status: Active Protocol: Document 07/05/19 14:56 [facility] (Rec: 07/05/19 15:09 [facility] [id number]) OT-Transfer Assessment Sit to and From Stand Sit to and from Stand Standby Assistance,Contact Guard Assistance Transfers Transfer Ability Contact Guard Assistance Technique Transfer Destination Bed,Chair Devices Transfer Assistive Devices Gait Belt,Front Wheeled Walker Comments Mobility Comments Pt much improved with stability on her feet and for walking with 4ww/FWW. No buckling noted today. OT- Balance Assessment Sitting Balance and Reactions Static Sitting Balance Ability Normal Dynamic Sitting Balance Ability Good Standing Balance and Reactions Static Standing Balance Ability Fair M8 OT- IP Objective Assessments Start: 07/04/19 16:16 Freq: Status: Active Protocol: Document 07/04/19 13:20 [facility] (Rec: 07/04/19 16:35 [facility] [id number]) OT Gross Range of Motion Upper Extremity Range of Motion Assessment Bilaterally Impaired ROM Impairments Bilateral shoulder flexion 0- 70 and has to bend her head forwards in order to comb her hair or wash her hair per pt. OT Strength Comments Strength Comments From proximal to distal 3-/5 to 4-/5. OT-Muscle Tone Assessment Muscle Tone WNL Yes M9 OT- IP Assessment and Plan Start: 07/04/19 16:16 Freq: Status: Active Protocol: Document 07/05/19 14:56 [facility] (Rec: 07/05/19 15:09 [facility] [id number]) OT Summary Assessment and Plan Potential Rehabilitation Potential Good Analytic Complexity at Evaluation Low Summary OT Impairments Pain,Strength,Balance, Functional Cognition, Functional Mobility,Grooming, Dressing,Toileting,Bathing, Toilet Transfers,Shower Transfers Progress Towards Goals Progressing Toward Goals Assessment Summary Pt improving and will benefit from skilled rehab to help get back to being independent with all ADL,IADl , and functional mobility needs. In addition to safety incorporate back precautions for all needs. Goals Grooming Goal Independent Dressing Goal Independent Toileting Goal Independent Bathing Goal Independent Toilet Transfer Goal Independent Shower Transfer Goal Independent Patient/Caregiver Education Goal Demonstrate Post-Op Precautions Days to Meet Goals 10 Frequency of Treatment Frequency Of Treatment Once a Day Treatment Plan OT Treatment Plan ADL Training,Functional Cognition Training,Functional Mobility,Patient/Family Education,Discharge Planning Other Treatment Recommendations and Next shower Treatment Focus Discharge Recommendations OT Discharge Recommendations SNF Rehab Home Equipment Needs Defer to SNF
--- NOTE | 2019-07-05 14:18 | PT.IPTN ---
Current Diagnoses Spinal stenosis, lumbar region with neurogenic claudication (07/03/19) Other bursal cyst, other site (07/03/19) Unspecified fracture of unspecified lumbar vertebra, subsequent encounter for fracture with nonunion (07/03/19) Surgery Performed Operation Date: 07/03/19 12:15 Actual Procedures p Revision left laminectomy & cyst exision L5S1. L5S1 hardware removal and fusion exploration, poss. refusion and reinstrumentation - Sincere Hawley MD Physical Therapy Treatment Note M2 PT-IP Current Condition Start: 07/04/19 08:26 Freq: NEEDED Status: Active Protocol: Document 07/04/19 10:05 HH (Rec: 07/04/19 11:33 [email or web address]) Physical Therapy Current Condition Current Condition Evaluation Date 07/04/19 Treatment Diagnosis Revision laminectomy L5-S1, radicular pain to BLE, difficulty in walking Onset Date 07/03/19 Precautions Lumbar Precautions Log Roll,No Twisting,Limit Bending,Lifting Restriction of 10 lbs,Gait Belt above Incisional Area Weight Bearing Status Weight Bearing Status Full Weight Bearing M3 PT-IP Subjective Start: 07/04/19 08:26 Freq: NEEDED Status: Active Protocol: Document 07/05/19 14:18 AB (Rec: 07/05/19 15:05 AB [id number]) Subjective Physical Therapy Visit Type Type Treatment Note Visit Start Time 14:18 Visit Stop Time 14:28 Total Visit Minutes 10 Number of LEAK DETECTOR Visits 0 Physical Therapy Visit Comments Patient Comments pt agreed to do ambulation but wants to try her 4WW Therapy Pain Assessment Pain When Pain Assessed At Rest Pain Present Pain Present Pain Reported Location Back Intensity 6 Scale Used Numeric (1 - 10) M4 PT-IP Mobility and Gait Start: 07/04/19 08:26 Freq: NEEDED Status: Active Protocol: Document 07/05/19 14:18 AB (Rec: 07/05/19 15:05 AB [id number]) PT-Transfer Assessment Sit to and From Stand Sit to and from Stand Contact Guard Assistance Equipment Transfer Assistive Device Gait Belt,Front Wheeled Walker Orthotic/Prosthetic Devices or Brace: Yes Gait Assessment Gait Gait Assistance Required: Contact Guard Assist,Minimum Assistance Distance (Feet) 100 Able to Maintain Weight Bearing Status Yes During Gait Assistive Devices Assistive Device Gait Belt,4 Wheeled Walker Orthotic/Prosthetic Devices or Brace: Yes Gait Deviations General Gait Pattern Antalgic,Decreased Stride Length,Decreased Feet Clearance Factors Limiting Gait Function Factors Limiting Gait Function Decreased Activity Tolerance, Decreased Strength,Limited Range of Motion,Pain,Poor Balance,Poor Safety Awareness Comments Gait Comments pt sitting on chair and completed sit to stand CGA and cues. ambulated using 4WW CGA to min A up to 100 ft. pt tends to push 4WW too far forward and cued for posture and positioning. pt with increase ankle inversion on L. educated pt on proper fitting shoes with good ankle support. AFO is also not fitting too well on pt due to LE swelling and instructed pt to contact her spring fitter helper to adjust AFO when she has proper fitting shoes. pt agreed. pt stayed seated on the chair after ambulation. postioned pt. call light and table placed within reach. M5 PT-IP Objective Assessments Start: 07/04/19 08:26 Freq: NEEDED Status: Active Protocol: Document 07/04/19 10:05 (Rec: 07/04/19 11:33 [email or web address]) Orientation Orientation/Cognition Level of Alertness Alert Orientation Name,Age,Birthday,Month,Date, Year,Day of Week,Place, Situation Language Function Ability No Deficits Noted Safety Awareness Understands Safety Issues Memory Description No Deficits Noted Gross Range of Motion Upper Extremity ROM Assessment Within Functional Limits Lower Extremity ROM Assessment Left Impaired Impairments trace for L ankle DF Strength Upper Extremity Strength Assessment Within Functional Limits Lower Extremity Strength Assessment Left Impaired Ankle 1/5 Comments Strength Comments trace 1/5 for L ankle DF Coordination Assessment Gross Coordination Gross Coordination WNL Sensation Assessment Sensation Gross Sensation WNL Muscle Tone Muscle Tone WNL Yes M6 PT-IP Treatment Start: 07/04/19 08:26 Freq: NEEDED Status: Active Protocol: Document 07/05/19 14:18 AB (Rec: 07/05/19 15:05 AB [id number]) Physical Therapy Treatment Education Education Provided Precautions,Safety M7 PT-IP Assessment and Plan Start: 07/04/19 08:26 Freq: NEEDED Status: Active Protocol: Document 07/05/19 14:18 AB (Rec: 07/05/19 15:05 AB [id number]) PT Summary Assessment and Plan Potential Rehabilitation Potential Good Summary Impairments Pain,ROM,Strength,Balance, Coordination,Sensation,Tone, Cognition,Bed Mobility, Transfers,Gait,Activity Tolerance Progress Towards Goals Progressing Toward Goals Assessment Summary pt progressing with mobility but still requires CGA to min A with ambulation. pt lives alone and has to be more independent than current level . pt will benefit from SNF rehab. Goals Bed Mobility Goal Standby Assistance Transfer Goal Standby Assistance,Four Wheeled Walker Gait Goal Standby Assistance,Four Wheel Walker Gait Distance 100 Other Goals 4STE with Brails prior to home d./c Days to Meet Goals 10 Frequency of Treatment Frequency Of Treatment Twice a Day Treatment Plan Physical Therapy Treatment Plan Bed Mobility Training,Transfer Training,Gait Training, Therapeutic Exercise,Balance Retraining,Post Op Education, Discharge Planning,Hot or Cold Pack,Neuromuscular Re-ed Other Recommendations and Next Treatment ambulation Focus Recommendations To Nursing Amount of Assist Needed 1 Person Assist Discharge Recommendations PT Discharge Recommendations SNF Rehab
[2019-07-05] MEDS: HYDROXYCHLOROQUINE 200 MG TABLET 400 MG PO (16:54)
[2019-07-05] MEDS: PREGABALIN 75 MG CAPSULE 150 MG PO (20:38)
[2019-07-05] MEDS: ATORVASTATIN 20 MG TABLET 80 MG PO (20:38)
[2019-07-06] MEDS: CYCLOBENZAPRINE 10 MG TABLET PO (00:13)
[2019-07-06] MEDS: OXYCODONE IR 10 MG TABLET PO ×3 (00:13→07:45)
[2019-07-06 00:15] VITALS: BP 122/70; PULSE 67; RESP 16; TEMP 36.3; O2SAT 92
[2019-07-06 03:41] VITALS: BP 145/75; PULSE 72; RESP 16; TEMP 36.2; O2SAT 92
[2019-07-06 07:00] VITALS: BP 129/77; PULSE 65; RESP 16; TEMP 36.4; O2SAT 95
[2019-07-06] MEDS: raNITIdine 150 MG CAPSULE PO (07:46)
[2019-07-06] MEDS: ACETAMINOPHEN 325 MG TABLET 650 MG PO (07:46)
--- NOTE | 2019-07-06 07:53 | PC.NURSE ---
Addendum entered by Olga Lidia Fletcher R.N. 07/06/19 12:00: DC - belongings gathered, including tablets x2 , relationship assoc, cell phone, own fww, x2 pink suitcases, x1 black purse w/glasses, packet provided to [facility] staff, report called to [email or web address]. Original Note: AM NOTE - awake at bedside shift report, pain back, rle 6 on scale 0/10, discussed pain mgt and given 10mg oxycodone with breakfast, has been up during night w/void and bm, declines stool softener this am, 02 sat 96% ra, hr 66, continues with hx numbness l foot and foot drop.
--- NOTE | 2019-07-06 08:28 | PM.PNPO.1 ---
Subjective Subjective Date Patient Seen: 07/06/19 Time Patient Seen: 08:28 Interval history: She is about the same. Still some spasms and limitations with pain going down the right leg and across the back. Exam Vital Signs (past 8 hours): - 07/06/19 03:41 Temperature 97.2 F L Pulse Rate 72 Respiratory Rate 16 Blood Pressure 145/75 H Pulse Oximetry 92 Oxygen Delivery Method Room Air Oxygen Flow Rate 0 Const Orientation: alert and oriented x3 Back/Spine/Pelvis Other: Mild drainage. 5/5 motor both lower extremities except for 2/5 left AT,0/5 EHL, 2/5 DC Objective ECG Impression: Stable positioning of screws. Stable, unchanged posterior migration of the L5-S1 cage on the right. Wide open central laminectomy and complete removal of the facet cyst on the left. Labs Result Diagrams: 07/04/19 06:47 07/04/19 06:47 Assessment & Plan Post-op Postoperative Procedures: Procedures Operation Date: 07/03/19 12:15 Actual Procedures Side Surgeon p Revision left laminectomy & cyst exision L5S1. L5S1 hardware removal and fusion exploration, poss. refusion and reinstrumentation Sincere Hawley MD Her CT scan does not show anything new to explain the right leg pain. Most likely this is just a stretch reaction to the amount of traction we had to do to free up the cyst. This should resolve with time. She is stable. She is slowly move around with therapy. We'll plan for discharge today to skilled rehab
--- NOTE | 2019-07-06 08:32 | PM.DS.1 ---
History of Present Illness History of Present Illness Date Patient Seen: 07/06/19 Time Patient Seen: 08:32 Chief complaint: [id number] Narrative: 64-year-old female who had a large scoliosis fusion almost 2 years ago. She had gone on to a nonunion at the L5-S1 level. She developed left-sided footdrop approximately 7 months after her initial surgery. She was found to have a facet cyst on the left that was resected, and her nonunion was regrafted with new screws. It appeared that this still did not solidly heel and the facet cyst was almost doubled in size and plan was to come in with repeat grafting and screw exchange and cyst removal. Discharge Providers Provider Date of admission: 07/03/19 10:38 Discharge Date: 07/06/19 Primary care physician: Irwin Duong MD Consults: 07/03/19 17:28 Consult to Occupational Therapy Evaluate & Treat Comment: Physician Instructions: Evaluate and treat Consult to Physical Therapy Evaluate & Treat Comment: Physician Instructions: Evaluate and Treat Discharge provider: Sincere Hawley MD Summary Hospital Course Discharge Diagnosis: Lumbar stenosis with facet cyst Hospital Course: She is brought to the operating room on 07/03/2019 where she underwent screw exchange and bone grafting for her L5-S1 pseudoarthrosis. She also had extensive repeat laminectomy with excision of the facet cyst. Postoperatively she had some slight improvement in strength in the left leg. However, she began having sharp spasms going down the back of the right leg. This was better with steroids. A CT scan was performed to make sure that there was no abnormality in the revision screw placement and everything was stable. It was felt that most likely this was primarily stretch from retraction. As it was getting better, the plan was just to watch this with time. She was mobilizing slowly and it was felt that she would benefit from skilled rehab prior to discharge home. Status at Discharge Cognitive/behavioral status at discharge: oriented Functional status at discharge: uses cane/walker Overall status at discharge: patient is progressing back to baseline Exam Vital Signs (past 8 hours): - 07/06/19 03:41 Temperature 97.2 F L Pulse Rate 72 Respiratory Rate 16 Blood Pressure 145/75 H Pulse Oximetry 92 Oxygen Delivery Method Room Air Oxygen Flow Rate 0 Const Orientation: alert and oriented x3 Back/Spine/Pelvis Other: Mild drainage. 5/5 motor both lower extremities except for slightly improved foot drop with 2/5 left AT, 0/5 EHL, 2/5 GC Objective Labs Result Diagrams: 07/04/19 06:47 07/04/19 06:47 Discharge Plan Discharge Plan Patient Disposition: SNF Transfer to: [facility] Under care of provider: facility physician Consult as needed: Dental, Hearing, Mental health, Podiatry and Vision Discharge orders & Medications Prescriptions: New oxycodone 5 mg Tablet See Rx Instructions .ROUTE .COMPLEX PRN (Reason: Pain, Moderate (4-6)) Qty: 40 RF: 0 hydroxyzine pamoate 25 mg Capsule 25 mg PO Q4HR PRN (Reason: spasms) Qty: 20 RF: 0 Continued cholecalciferol (vitamin D3) [Vitamin D3] 2,000 unit Capsule 4,000 unit PO DAILY Qty: 0 RF: 0 oxymetazoline [Afrin (oxymetazoline)] 0.05 % [place],Non-Aerosol 2 spray Intranasal BID PRN (Reason: Congestion) Qty: 30 RF: 0 fluticasone propionate 16 GM spray,suspension 2 spray Intranasal QDAY Qty: 1 RF: 5 metoprolol succinate [Toprol XL] 25 MG tablet extended release 24 hr 25 mg PO QDAY Qty: 90 RF: 1 lisinopril 2.5 MG tablet 2.5 mg PO QDAY Qty: 90 RF: 1 prednisone 10 MG tablet 5 mg PO QDAY Qty: 0 RF: 0 atorvastatin [Lipitor] 80 MG tablet 80 mg PO HS Qty: 90 RF: 0 chlorthalidone 25 MG tablet 25 mg PO QDAY Qty: 0 RF: 0 cyclobenzaprine 10 MG tablet 10 mg PO TIDP PRN (Reason: Muscle Spasm) RF: 0 alprazolam 0.25 MG tablet 1 - 2 tab PO DAILY PRN (Reason: Anxiety) RF: 0 leflunomide 20 mg Tablet 20 mg PO DAILY RF: 0 hydroxychloroquine 200 mg Tablet 400 mg PO QPM RF: 0 albuterol sulfate 90 mcg/actuation Hfa Aerosol Inhaler 2 puff INHALATION BID PRN (Reason: Shortness Of Breath) RF: 0 ranitidine HCl 150 mg Capsule 150 mg PO BID RF: 0 (DME) Disabled Parking Permit RF: 0 pregabalin 150 mg Capsule 150 mg PO BEDTIME RF: 0 citalopram 40 MG tablet 40 mg PO QDAY RF: 0 potassium chloride [K-Tab] 20 MEQ tablet extended release 20 meq PO QNOON RF: 0 Discontinued oxycodone-acetaminophen 5-325 mg Tablet See Rx Instructions .ROUTE .COMPLEX PRN (Reason: Pain, Moderate (4-6)) Qty: 60 RF: 0 Follow up/Referrals: Irwin Duong MD [Primary Care Provider] - Discharge Health Status Multidrug resistant organism: No MDRO Precautions: [place] Diet/Activity/Treatments Diet: Diet as Tolerated Liquid consistency: Normal/Thin Food texture: Regular Activity: limited BLT 10 lbs Skin/Wound/Dressing Care Report to your healthcare provider any signs of infection, such as:: chills, fever, night sweats, increased pain, unusual drainage and unusual redness Dressing: may change dressing and shower POD#5 (Tues), replace with clean dressing when done Special Rehabilitation Services Reason for rehabilitation: Post-operative therapy Rehab type: Physical therapy and Occupational therapy Visit Report/Discharge Packet Instructions: DI for Prescription Opioid Use, DI for Transforaminal Lumbar Interbody Fusion Stand Alone Forms: Surgery Discharge Discharge Data Primary Care Provider: Irwin Duong
[2019-07-06] MEDS: LISINOPRIL 5 MG TABLET 2.5 MG PO (08:44)
[2019-07-06] MEDS: LEFLUNOMIDE 20 MG TABLET PO (08:44)
[2019-07-06] MEDS: predniSONE 5 MG TABLET PO (08:44)
[2019-07-06] MEDS: CHLORTHALIDONE 25 MG TABLET PO (08:44)
[2019-07-06] MEDS: CITALOPRAM 20 MG TABLET 40 MG PO (08:44)
[2019-07-06] MEDS: METOPROLOL ER 25 MG TABLET PO (08:45)
[2019-07-06] MEDS: CHOLECALCIFEROL (VITAMIN D3) 1,000 UNIT TABLET 4000 UNIT PO (08:46)
--- NOTE | 2019-07-06 09:18 | CM.DPC ---
Addendum entered by Bhargavi Lord R.N. 07/06/19 13:51: IMM signed and placed in green folder to be scanned on sunday07/07/19. Bhargavi Lord RN Addendum entered by Bhargavi Lord R.N. 07/06/19 09:23: PASRR copy placed in green folder on Charity's desk for scanning. Original PASRR placed in D/C packet to go with patient to [facility]. Bhargavi Lord RN Original Note: DCP continued: EMR reviewed: Dr. Hawley stopped by the CM/hydrological technical officer and will be D/C patient this morning. CM/Rn contacted [facility] [phone]. They can accept and set up transport for 10am. CM/RN let patients RN and SHOE COVERER know of d/c plan and lemon picker time. CM/RN faxed PASRR, D/C orders. D/C summary to [facility] and their nurses station at [phone] and [phone]. For Nurse report please call Ruby at [phone]. Number also placed in paper chart at nurses station. Bhargavi Lord RN.
== END 2019-07-06 10:20 | DRG 460 ==
PROVIDERS: Admitting Provider Orthopaedic Surgery; PCP Family Medicine; Visit Provider Orthopaedic Surgery
PROC: 0SG3071 Fusion of Lumbosacral Joint with Autologous Tissue Substitute, Posterior Approach, Posterior Column, Open Approach (ICD-10-PCS; principal; 2019-07-03 12:15)
DX: M48.061 Spinal stenosis, lumbar region without neurogenic claudication (principal); M96.0 Pseudarthrosis after fusion or arthrodesis; M96.89 Other intraoperative and postprocedural complications and disorders of the musculoskeletal system; M79.604 Pain in right leg; M85.48 Solitary bone cyst, other site; M96.1 Postlaminectomy syndrome, not elsewhere classified; I10 Essential (primary) hypertension; M06.9 Rheumatoid arthritis, unspecified; J45.998 Other asthma
CPT/HCPCS: 36415; 72100; 72131; 76000; 80048; 85014; 85018; 94762; 97116; 97162; 97165; 97530; 97535; C1776; J0330; J0595; J0690; J1100; J1170; J2250; J2274; J2405; J2704; J3010

== ENCOUNTER 2019-07-14 15:12 | Emergency (ER) | payer MEDICARE, OTHER, SELFPAY ==
[2019-07-03 19:00] VITALS: BMI 37.9
[2019-07-14 15:22] VITALS: BP 156/87; PULSE 100; RESP 24; TEMP 36.6; O2SAT 99
--- NOTE | 2019-07-14 15:47 | DI.RAD.S_ITS ---
PROCEDURE: XR FOOT LT MIN 3V INDICATIONS: trauma to 5th toe TECHNIQUE: 3 views of the foot were acquired. COMPARISON: [facility], CR, XR FOOT 3VW LT, 03/14/2017, 14:04. FINDINGS: Bones: There is a minimally displaced oblique fracture involving the mid to distal shaft of the 5th metatarsal without intra-articular extension. No additional acute fractures are identified. No suspicious osseous lesions are present. There is severe degenerative changes of the 1st metatarsophalangeal joint with associated prominent hallux valgus deformity. Moderate degenerative changes involving the tarsometatarsal joints are not well characterized. Soft tissues: No tibiotalar joint effusion. Soft tissue swelling about the midfoot and forefoot is evident, best appreciated overlying the dorsal aspect of the foot. IMPRESSION: 1. Mildly displaced 5th metatarsal fracture. 2. 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 Dictated by: Kd Avendaño M.D. on 07/14/2019 at 15:15 Approved by: Kd Avendaño M.D. on 07/14/2019 at 15:17
--- NOTE | 2019-07-14 17:08 | ED_ITS ---
HPI - Extremity Injury (Lower) <Annia Vu, CONSTRUCTION MANAGEMENT INSTRUCTOR-BC - Last Filed: 07/14/19 17:12> General Chief Complaint: Extremity Injury, Lower Stated Complaint: LITTLE TOE LEFT FOOT INJURY Time Seen by Provider: 07/14/19 15:24 Source: patient Mode of arrival: Wheelchair Limitations: no limitations History of Present Illness HPI Narrative: The patient is a 64-year-old female former smoker with history of spinal surgery who presents with a chief complaint of a left little toe injury. She states that she accidentally kicked her walker and felt a crack. She states that her toe is broken. She has not applied any ice or take any medication. She states it does not hurt that she tries to wiggle it. She is at [facility] related to spinal surgery, and states that she is recovering from that very well. She is very happy with her procedure. Related Data Home Medications Medication Instructions Recorded Confirmed cholecalciferol (vitamin D3) 4,000 unit PO DAILY #0 12/08/10 07/03/19 [Vitamin D3] oxymetazoline [Afrin 2 spray INTRANASAL BID PRN #30 ml 03/05/13 07/03/19 (oxymetazoline)] chlorthalidone 25 mg PO DAILY #0 08/02/17 07/14/19 albuterol sulfate 2 puff INHALATION BID PRN 05/08/18 07/14/19 alprazolam 1 - 2 tab PO DAILY PRN 05/08/18 07/03/19 cyclobenzaprine 10 mg PO TIDP PRN 05/08/18 07/03/19 hydroxychloroquine 400 mg PO QPM 05/08/18 07/14/19 leflunomide 20 mg PO DAILY 05/08/18 07/14/19 ranitidine HCl 150 mg PO BID 05/21/18 07/03/19 Disabled Parking Permit 05/22/18 07/04/19 potassium chloride [K-Tab] 20 meq PO QNOON 06/19/19 07/14/19 pregabalin 150 mg PO BEDTIME 06/19/19 07/03/19 atorvastatin [Lipitor] 80 mg PO BEDTIME 07/14/19 07/14/19 citalopram 20 mg PO DAILY 07/14/19 07/14/19 lisinopril 2.5 mg PO DAILY 07/14/19 07/14/19 metoprolol succinate [Toprol XL] 25 mg PO DAILY 07/14/19 07/14/19 oxycodone 5 - 10 mg PO Q4H PRN 07/14/19 07/14/19 prednisone 5 mg PO DAILY 07/14/19 07/14/19 Previous Rx's Medication Instructions Recorded fluticasone propionate 2 spray INTRANASAL QDAY #1 bot 08/22/16 hydroxyzine pamoate 25 mg PO Q4HR PRN #20 cap 07/06/19 Allergies Allergy/AdvReac Type Severity Reaction Status Date / Time No Known Drug Allergies Allergy Unknown Verified 07/03/19 11:33 [NO KNOWN DRUG ALLERGIES] Review of Systems <HUMBERTO Mckenzie - Last Filed: 07/14/19 17:12> Review of Systems Narrative: GENERAL: Denies chills, fatigue, malaise, fever, sweats. HEENT: Denies sinus pain, ear pain, sore throat, difficulty swallowing, dizziness. RESPIRATORY: Denies dyspnea, cough, wheezing, hemoptysis, sputum. CARDIOVASCULAR: Denies chest pain, palpitations, orthopnea, edema, GASTROINTESTINAL: Denies nausea, vomiting, abdominal pain, diarrhea, constipat ion, melena. : Denies dysuria, frequency, incontinence, hematuria, urinary retention. MUSCULOSKELETAL: See HPI SKIN: See HPI NEUROLOGIC: Denies weakness, headache, numbness, change in speech, confusion, seizures, incoordination. PSYCHIATRIC: No concerning psychosocial issues. 12 point review of systems is negative except for those stated above Patient History <HUMBERTO Mckenzie - Last Filed: 07/14/19 17:12> Medical History Anxiety (Acute) Asthma (Acute) Chronic back pain (Acute) Depression (Acute) Easy bruisability (Acute) Hyperlipidemia (Acute) Hypothyroidism (Acute) Impaired memory (Acute) Polycythemia vera (Acute) Sciatica (Acute) Surgical History History of lumbar fusion (Acute 08/14/17) History of lumbar spinal fusion (Acute 05/21/18) Hx of cholecystectomy (Acute ~2012) Hx of thyroidectomy (Acute ~1998) Hx of tubal ligation (Acute) Status post cholecystectomy (Deleted) Family History Father Stroke Social History household members: none Smoking Status: Former smoker alcohol intake: former Smoking Status: Former smoker Substance Use Type: marijuana Exam <HUMBERTO Mckenzie - Last Filed: 07/14/19 17:12> Narrative Exam Narrative: GENERAL: Very pleasant elderly female sitting on wheelchair HEAD: Atraumatic. Normocephalic. No temporal or scalp tenderness. EYES: Pupils equal round and reactive. Extraocular motions intact. No scleral icterus. No injection or drainage. ENT: Nose without bleeding, purulent drainage or septal hematoma. Throat without erythema, tonsillar hypertrophy or exudate. Uvula midline. Airway patent. NECK: Trachea midline. No JVD or lymphadenopathy. Supple, nontender, no meningeal signs. CARDIOVASCULAR: Regular rate and rhythm RESPIRATORY: No cough. No increased respiratory effort. No accessory muscle use. EXTREMITIES: General pain to palpation left 5th metatarsal and left side of foot. Slight ecchymosis noted. No laceration or abrasion noted. BACK: Nontender without deformity or crepitance. No flank tenderness. NEURO: AOx3. SKIN: See extremity exam Initial Vital Signs Initial Vital Signs: Vital Signs Temperature 97.8 F 07/14/19 15:22 Pulse Rate 100 H 07/14/19 15:22 Respiratory Rate 24 07/14/19 15:22 Blood Pressure 156/87 H 07/14/19 15:22 Pulse Oximetry 99 07/14/19 15:22 <Eve Garg DO - Last Filed: 07/15/19 09:08> Initial Vital Signs Initial Vital Signs: Vital Signs Temperature 97.8 F 07/14/19 15:22 Pulse Rate 100 H 07/14/19 15:22 Respiratory Rate 24 07/14/19 15:22 Blood Pressure 156/87 H 07/14/19 15:22 Pulse Oximetry 99 07/14/19 15:22 Procedures <HUMBERTO Mckenzie - Last Filed: 07/14/19 17:12> Orthopedic Splinting/Casting Injury #1: Side: left Lower Extremity Injury Location: foot Lower Extremity Immobilizer: post-op shoe Post splinting neuro exam: intact Post splinting vascular exam: intact Placed by: Nursing Course <HUMBERTO Mckenzie - Last Filed: 07/14/19 17:12> Orders Ordered: ED Orders 07/14/19 15:47 XR foot LT min 3V Stat Vital Signs Vital signs: Vital Signs - 8 hr 07/14/19 15:22 Temperature 97.8 F Pulse Rate 100 H Respiratory Rate 24 Blood Pressure 156/87 H Pulse Oximetry 99 <Eve Garg DO - Last Filed: 07/15/19 09:08> Orders Ordered: ED Orders 07/14/19 15:47 XR foot LT min 3V Stat Vital Signs Vital signs: Vital Signs - 8 hr 07/14/19 15:22 Temperature 97.8 F Pulse Rate 100 H Respiratory Rate 24 Blood Pressure 156/87 H Pulse Oximetry 99 MDM - Extremity Injury (Lower) <HUMBERTO Mckenzie - Last Filed: 07/14/19 17:12> Imaging Data Extremity x-ray #1: Radiologist's Impression: [address] [place] [address] XRay Report Signed Patient: Tatiana Duong LMR#: [id number] : [id number] Age/Sex: 64 / FDate of Service: 07/14/19 Loc: ED Accession Number: [id number] Procedure: XR foot LT min 3V Ordering Provider: Annia Vu PROCEDURE: XR FOOT LT MIN 3V INDICATIONS: trauma to 5th toe TECHNIQUE: 3 views of the foot were acquired. COMPARISON: [facility], , XR FOOT 3VW LT, 03/14/2017, 14:04. FINDINGS: Bones: There is a minimally displaced oblique fracture involving the mid to distal shaft of the 5th metatarsal without intra-articular extension. No additional acute fractures are identified. No suspicious osseous lesions are present. There is severe degenerative changes of the 1st metatarsophalangeal joint with associated prominent hallux valgus deformity. Moderate degenerative changes involving the tarsometatarsal joints are not well characterized. Soft tissues: No tibiotalar joint effusion. Soft tissue swelling about the midfoot and forefoot is evident, best appreciated overlying the dorsal aspect of the foot. IMPRESSION: 1. Mildly displaced 5th metatarsal fracture. 2. 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 Dictated by: Kd Avendaño M.D. on 07/14/2019 at 15:15 Approved by: Kd Avendaño M.D. on 07/14/2019 at 15:17 [facility] Narrative Medical decision making narrative: The patient is a 64-year-old female presents with a chief complaint of a left 5th toe injury. X-ray shows a mildly displaced 5th metatarsal fracture. She was placed in a postoperative shoe as per Dr Garg's recommendations. She is neurovascularly intact before and after. I discussed at length rest ice compression elevation as well as follow-up with primary care provider in the next few days and follow up with Orthopedics. Patient has no questions or concerns upon discharge and states understanding return precautions as well as follow-up care. Discharge Plan Departure Patient Disposition: Home Clinical Impression: Closed fracture of fifth metatarsal bone Qualifiers: Encounter type: initial encounter Physeal involvement: involving physis Salter- Singleotn Fracture Type: unspecified configuration Laterality: right Qualified Code(s): S99.101A - Unspecified physeal fracture of right metatarsal, initial encounter for closed fracture Discharge Date/Time: 07/14/19 17:01 Instructions: DI for Foot Fracture, How To Perform RICE (Rest, Ice, Compress, Elevate) Activity Restrictions/Additional Instructions: Your x-ray shows a fracture of your 5th metatarsal We have placed you in a postoperative shoe Please use rest ice compression elevation as well as [id number] pain medication as needed and able. Please follow up with primary care provider as well as Orthopedics. Please come back to emergency department for any acute concerns. Prescriptions: No Action cholecalciferol (vitamin D3) [Vitamin D3] 2,000 unit Capsule 4,000 unit PO DAILY Qty: 0 RF: 0 oxymetazoline [Afrin (oxymetazoline)] 0.05 % [place],Non-Aerosol 2 spray Intranasal BID PRN (Reason: Congestion) Qty: 30 RF: 0 fluticasone propionate 16 GM spray,suspension 2 spray Intranasal QDAY Qty: 1 RF: 5 chlorthalidone 25 MG tablet 25 mg PO DAILY Qty: 0 RF: 0 cyclobenzaprine 10 MG tablet 10 mg PO TIDP PRN (Reason: Muscle Spasm) RF: 0 alprazolam 0.25 MG tablet 1 - 2 tab PO DAILY PRN (Reason: Anxiety) RF: 0 leflunomide 20 mg Tablet 20 mg PO DAILY RF: 0 hydroxychloroquine 200 mg Tablet 400 mg PO QPM RF: 0 albuterol sulfate 90 mcg/actuation Hfa Aerosol Inhaler 2 puff INHALATION BID PRN (Reason: Shortness Of Breath) RF: 0 ranitidine HCl 150 mg Capsule 150 mg PO BID RF: 0 (DME) Disabled Parking Permit RF: 0 pregabalin 150 mg Capsule 150 mg PO BEDTIME RF: 0 potassium chloride [K-Tab] 20 MEQ tablet extended release 20 meq PO QNOON RF: 0 hydroxyzine pamoate 25 mg Capsule 25 mg PO Q4HR PRN (Reason: spasms) Qty: 20 RF: 0 prednisone 5 mg tablet 5 mg PO DAILY RF: 0 citalopram 20 mg tablet 20 mg PO DAILY RF: 0 atorvastatin [Lipitor] 80 MG tablet 80 mg PO BEDTIME RF: 0 metoprolol succinate [Toprol XL] 25 MG tablet extended release 24 hr 25 mg PO DAILY RF: 0 lisinopril 2.5 MG tablet 2.5 mg PO DAILY RF: 0 oxycodone 5 mg tablet 5 - 10 mg PO Q4H PRN (Reason: Pain, Moderate (4-6)) RF: 0 Referrals: [facility] [Provider Group] Irwin Duong MD [Primary Care Provider] -
== END 2019-07-14 17:01 | disposition home or self-care (01) ==
PROVIDERS: Emergency Provider Nurse Practitioner Family; PCP Family Medicine
DX: S99.101A Unspecified physeal fracture of right metatarsal, initial encounter for closed fracture (principal); W22.03XA Walked into furniture, initial encounter
CPT/HCPCS: 73630; 99283

== ENCOUNTER 2021-04-28 11:12 | Emergency (ER) | payer MEDICARE, MEDICAID, SELFPAY ==
[2019-07-03 19:00] VITALS: BMI 37.9
[2021-04-28 11:10] VITALS: BP 133/78; PULSE 93; RESP 15; TEMP 36.9; O2SAT 94; BMI 39.6
--- NOTE | 2021-04-28 11:19 | ED.BACK ---
HPI - Back Pain/Injury General Chief Complaint: Fall Stated Complaint: Back pain, fall sunday Time Seen by Provider: 04/28/21 11:18 Source: patient Mode of arrival: EMS Limitations: no limitations History of Present Illness HPI Narrative: This is a 65-year-old female comes emergency department with a trip and fall on Sunday. Patient fell landing on her back and has since had increasing mid lower back pain. Patient states she was ambulating but has had more difficulty and was really kind of stuck in bed today. She has had prior back surgeries in the past and has had multiple surgeries. She does have some chronic numbness and tingling and has not had any new changes from that aspect. She states her pain is bilaterally but radiates a little bit down her right leg. She finds she is not comfortable on her left side of her right leg slightly flexed. Patient denies any any new numbness or weakness. She denies any loss of bowel or bladder control. She denies any fevers or chills. She denies any other injuries. Patient is on chronic prednisone daily and hydroxychloroquine for rheumatoid arthritis. She is also on Lipitor, chlorthalidone lisinopril and metoprolol for blood pressure. She typically takes a 5 mg oxycodone with 2 tablets of ibuprofen 4 times daily and she did have a dose this morning a couple hours prior to arrival. Patient does live on [address] she is visiting her sister here this week staying at her house locally. Related Data Home Medications Medication Instructions Recorded Confirmed cholecalciferol (vitamin D3) 50 4,000 unit PO DAILY #0 12/08/10 07/03/19 mcg (2,000 unit) capsule (Vitamin D3) oxymetazoline 0.05 % nasal spray 2 spray INTRANASAL BID PRN #30 ml 03/05/13 07/03/19 (Afrin (oxymetazoline)) chlorthalidone 25 mg tablet 25 mg PO DAILY #0 08/02/17 07/14/19 albuterol sulfate 90 mcg/actuation 2 puff INHALATION BID PRN 05/08/18 07/14/19 aerosol inhaler alprazolam 0.25 mg tablet 1 - 2 tab PO DAILY PRN 05/08/18 07/03/19 cyclobenzaprine 10 mg tablet 10 mg PO TIDP PRN 05/08/18 07/03/19 hydroxychloroquine 200 mg tablet 400 mg PO QPM 05/08/18 07/14/19 leflunomide 20 mg tablet 20 mg PO DAILY 05/08/18 07/14/19 ranitidine HCl 150 mg capsule 150 mg PO BID 05/21/18 07/03/[address]ing Permit 05/22/18 07/04/19 potassium chloride 20 mEq 20 meq PO QNOON 06/19/19 07/14/19 tablet,extended release (K-Tab) pregabalin 150 mg capsule 150 mg PO BEDTIME 06/19/19 07/03/19 atorvastatin 80 mg tablet (Lipitor) 80 mg PO BEDTIME 07/14/19 07/14/19 citalopram 20 mg tablet 20 mg PO DAILY 07/14/19 07/14/19 lisinopril 2.5 mg tablet 2.5 mg PO DAILY 07/14/19 07/14/19 metoprolol succinate 25 mg 25 mg PO DAILY 07/14/19 07/14/19 tablet,extended release 24 hr (Toprol XL) oxycodone 5 mg tablet 5 - 10 mg PO Q4H PRN 07/14/19 07/14/19 prednisone 5 mg tablet 5 mg PO DAILY 07/14/19 07/14/19 Previous Rx's Medication Instructions Recorded fluticasone propionate 50 2 spray INTRANASAL QDAY #1 bot 08/22/16 mcg/actuation nasal spray,suspension hydroxyzine pamoate 25 mg capsule 25 mg PO Q4HR PRN #20 cap 07/06/19 diazepam 10 mg tablet 10 mg PO TID PRN 1 Days #10 tab 04/28/21 oxycodone 5 mg tablet 10 mg PO Q6H PRN #10 tab 04/28/21 Allergies Allergy/AdvReac Type Severity Reaction Status Date / Time No Known Drug Allergies Allergy Unknown Verified 04/28/21 11:19 [NO KNOWN DRUG ALLERGIES] Review of Systems Review of Systems ROS Unobtainable: All systems reviewed & are unremarkable except as noted in HPI and below Patient History Medical History (Updated 04/28/21 @ 14:12 by Annia Moffett DO) Anxiety Asthma Chronic back pain Depression Easy bruisability Hyperlipidemia Hypothyroidism Impaired memory Polycythemia vera Sciatica Surgical History (Updated 08/05/20 @ 08:47 by Wizer Mo) History of lumbar fusion (08/14/17) History of lumbar spinal fusion (05/21/18) Hx of cholecystectomy (~2012) Hx of thyroidectomy (~1998) Hx of tubal ligation Status post cholecystectomy Family History Father Stroke Social History household members: none Smoking Status: Former smoker alcohol intake: former Smoking Status: Former smoker Substance Use Type: marijuana Exam Narrative Exam Narrative: GENERAL: Alert and oriented x three, female in mild to moderate distress. HEENT: Head normocephalic, atraumatic, EOMI, pupils reactive, face symmetric, moist mucous membranes NECK: Supple, full range of motion CARDIOVASCULAR: Regular rate and rhythm without murmurs, rubs or gallops. RESPIRATORY: Breath sounds equal bilaterally, no wheezes rales or rhonchi. ABDOMEN: Soft, nontender. Normoactive bowel sounds all 4 quadrants. No guarding or rebound, rigidity, no mass : No CVA tenderness BACK: No cervical, thoracic vertebral point tenderness. Patient does have some tenderness at L2-3 on palpation. There is no crepitus or deformity. Patient does not have any ecchymosis or bruising. She has significant healed scars the entire length of her thoracic and lumbar spine. Patient has mildly decreased range of motion. She is able to roll on her side but require some assistance. Patient's gait is deferred. Muscle strength is 5/5 in lower extremities. Dorsalis pedis and tibialis pulses are 2+ and lower extremities. Sensation is intact in the lower extremities. Patient does have good movement of her lower extremities. EXTREMITIES: Normal range of motion. Neurovascularly intact NEUROLOGICAL: Cranial nerves II through XII grossly intact. Moving all extremities. 5/5 muscle strength bilateral lower extremities. SKIN: Warm, dry, no petechiae, no rashes or lesions. Initial Vital Signs Initial Vital Signs: Vital Signs Temperature 98.4 F 04/28/21 11:10 Pulse Rate 93 H 04/28/21 11:10 Respiratory Rate 15 04/28/21 11:10 Blood Pressure 133/78 04/28/21 11:10 Pulse Oximetry 94 04/28/21 11:10 Course Orders Ordered: ED Orders 04/28/21 11:24 CT lumbar spine wo con Stat Discontinued Medications Diazepam (Diazepam 5 Mg Tablet) 10 mg PO NOW ONE Stop: 04/28/21 11:19 Last Admin: 04/28/21 12:01 Dose: 10 mg Documented by: JOSÉ Ketorolac Tromethamine (Ketorolac 30 Mg/Ml Vial) 15 mg IV NOW ONE Stop: 04/28/21 11:19 Last Admin: 04/28/21 12:01 Dose: 15 mg Documented by: JOSÉ Reevaluation(s) Reevaluation #1: Patient feels much better after medications. We reviewed her CT findings. She finds this reassuring and feels comfortable to return home. She lives on [address] but is visiting her sister locally so was given a prescription for some additional pain medication so she may take some extra tablets as well as muscle relaxer. Patient does not have access to all of her home medications because she is here in [place]. Vital Signs Vital signs: Vital Signs - 8 hr 04/28/21 12:40 04/28/21 12:41 04/28/21 12:42 Pulse Rate 80 80 80 Respiratory Rate 16 Blood Pressure 101/57 L 101/57 L Pulse Oximetry 93 94 94 04/28/21 14:33 Pulse Rate 83 Respiratory Rate Blood Pressure 116/81 Pulse Oximetry 95 MDM - Back Pain/Injury Imaging Data Lspine CT: Radiologist's Impression: [address] [id number] Scan ReportSigned Patient: Tatiana Duong LMR#: [id number]: 4Acct:[id number]/Sex: 65 / FDate of Service: 04/28/21Loc: EDAccession Number: [id number] Procedure: CT lumbar spine wo con Ordering Provider: Annia Moffett D.O. PROCEDURE: CT LUMBAR SPINE WO CON INDICATIONS: low back pain, tender L2/3 range. hx back sx, chronic stero TECHNIQUE: Noncontrast 3 mm thick sections acquired from the T12 level to the sacrum. Sagittal and coronal reformats were constructed. For radiation dose reduction, the following was used: automated exposure control. COMPARISON: [facility], CT, CT LUMBAR SPINE WO CON, 02/05/2019, 12:51. [facility], CT, CT LUMBAR SPINE WO CON, 07/05/2019, 8:48. FINDINGS: Image quality: Significant artifact is present secondary to metallic streak artifact from spinal fusion hardware. Bones: There is unchanged slight rightward curvature with apex at L3-4. Extensive fusion is present from T8 through S1, which includes the field of view on current exam. There is partially visualized fusion at T7. Left hemilaminectomy is noted L5. Intervertebral spacers are present from L1 to through L5-S1. There remains posterior location of disc spacer at L5-S1, unchanged. Prominent reactive endplate changes are present most severe at L4-5 and L5-S1. There are no acute osseous fractures or dislocations within the spine. Old appearing left rib fracture is noted.. No suspicious osseous lesions. Prominent disc space narrowing remains present at L5-S1. There is trace retrolisthesis of L1 on L2, L2 on L3. Borderline trace anterolisthesis is present at L4 on L5, unchanged. All hardware is intact. There is mild appearance of periprosthetic lucency within the pedicular portion of the right fixation screw at L2 bilateral L3 and L4, as well as bilateral S1 screws. These are unchanged. Disc bulges are present at L1-L2, L2-3, L3-4, L4-5 with appearance of partial previously noted extrusion remaining present with large calcified portion extending into L5-S1 surgically removed as noted on most recent prior exam. There is [id number] spinal stenosis at L2-3, mild L3-4. Mild left foraminal narrowing L1-L2, moderate bilateral L2-3, mild right, moderate left L3-4, severe bilateral L4-5. There is compromise of the left foramina secondary to posterior located disc spacer, unchanged. Moderate left foraminal narrowing is present at L5-S1. Soft tissues: No retroperitoneal masses or hematomas. Visualized aorta is normal in caliber. Calcifications are present within the uterus suggestive of fibroid. IMPRESSION: 1. Extensive postsurgical and degenerative changes as above. 2. No definitive areas of new osseous or hardware fracture are identified. Prominent artifact is noted. Dictated by: Elsa Martinez M.D. on 04/28/2021 at 12:14 Approved by: Elsa Martinez M.D. on 04/28/2021 at 13:48 MDM Narrative Medical decision making narrative: This is a 65-year-old female had a fall on Sunday who has been ambulating at home but has had progressively worsening back and had difficulty getting out of bed today secondary to pain. She had quite a bit of improvement with Toradol and Valium. We CT her back as she has had significant back surgeries in the past she has some midline tenderness an x-ray imaging would likely not rule out any vertebral compression fractures or hardware loosening. This did not show any obvious acute changes. Patient his doing well here in the department and feels safe to return back to her sister's care. She is given a short course of pain medication and muscle relaxer in addition to her normal meds. Discharge Plan Departure Patient Disposition: Home Clinical Impression: Acute exacerbation of chronic low back pain, Fall Instructions: How to Prevent Falls Activity Restrictions/Additional Instructions: Your imaging today does not show any new breaks or fractures, loosening or changes to the hardware. If you continue to have a worsening of your symptoms I would follow-up with your primary care or if you are still in touch your back surgeons. You may continue home medications as prescribed but if needed you may take 2 tablets of oxycodone instead of 1 tablet. Let your physician know if you have a pain contract so they are aware you have had additional prescriptions for controlled substances. You may also take muscle relaxer, take this as prescribed. This medication can make you sleepy do not drive, perform hazardous activities or make any major decisions while taking it. This medication will make you constipated please take a stool softener once to twice daily until stools are soft and regular. Prescription sent to [facility] in [place]. Please return for new or rapidly worsening back pain, new numbness, tingling or weakness or changes in the sensation or ability to move your extremities, loss of bowel or bladder control, lightheadedness or passing out or other new or concerning symptoms. Prescriptions: New oxycodone 5 mg tablet 10 mg PO Q6H PRN (Reason: pain) Qty: 10 RF: 0 diazepam 10 mg tablet 10 mg PO TID PRN (Reason: muscle spasm) 1 Days Qty: 10 RF: 0 No Action cholecalciferol (vitamin D3) [Vitamin D3] 2,000 unit Capsule 4,000 unit PO DAILY Qty: 0 RF: 0 oxymetazoline [Afrin (oxymetazoline)] 0.05 % [place],Non-Aerosol 2 spray Intranasal BID PRN (Reason: Congestion) Qty: 30 RF: 0 fluticasone propionate 16 GM spray,suspension 2 spray Intranasal QDAY Qty: 1 RF: 5 chlorthalidone 25 MG tablet 25 mg PO DAILY Qty: 0 RF: 0 cyclobenzaprine 10 MG tablet 10 mg PO TIDP PRN (Reason: Muscle Spasm) RF: 0 alprazolam 0.25 MG tablet 1 - 2 tab PO DAILY PRN (Reason: Anxiety) RF: 0 leflunomide 20 mg Tablet 20 mg PO DAILY RF: 0 hydroxychloroquine 200 mg Tablet 400 mg PO QPM RF: 0 albuterol sulfate 90 mcg/actuation Hfa Aerosol Inhaler 2 puff INHALATION BID PRN (Reason: Shortness Of Breath) RF: 0 ranitidine HCl 150 mg Capsule 150 mg PO BID RF: 0 (DME) Disabled Parking Permit RF: 0 pregabalin 150 mg Capsule 150 mg PO BEDTIME RF: 0 potassium chloride [K-Tab] 20 MEQ tablet extended release 20 meq PO QNOON RF: 0 hydroxyzine pamoate 25 mg Capsule 25 mg PO Q4HR PRN (Reason: spasms) Qty: 20 RF: 0 prednisone 5 mg tablet 5 mg PO DAILY RF: 0 citalopram 20 mg tablet 20 mg PO DAILY RF: 0 atorvastatin [Lipitor] 80 MG tablet 80 mg PO BEDTIME RF: 0 metoprolol succinate [Toprol XL] 25 MG tablet extended release 24 hr 25 mg PO DAILY RF: 0 lisinopril 2.5 MG tablet 2.5 mg PO DAILY RF: 0 oxycodone 5 mg tablet 5 - 10 mg PO Q4H PRN (Reason: Pain, Moderate (4-6)) RF: 0 Referrals: Irwin Duong MD [Primary Care Provider] -
--- NOTE | 2021-04-28 11:24 | DI.CT.S_ITS ---
PROCEDURE: CT LUMBAR SPINE WO CON INDICATIONS: low back pain, tender L2/3 range. hx back sx, chronic stero TECHNIQUE: Noncontrast 3 mm thick sections acquired from the T12 level to the sacrum. Sagittal and coronal reformats were constructed. For radiation dose reduction, the following was used: automated exposure control. COMPARISON: [facility], CT, CT LUMBAR SPINE WO CON, 02/05/2019, 12:51. [facility], CT, CT LUMBAR SPINE WO CON, 07/05/2019, 8:48. FINDINGS: Image quality: Significant artifact is present secondary to metallic streak artifact from spinal fusion hardware. Bones: There is unchanged slight rightward curvature with apex at L3-4. Extensive fusion is present from T8 through S1, which includes the field of view on current exam. There is partially visualized fusion at T7. Left hemilaminectomy is noted L5. Intervertebral spacers are present from L1 to through L5-S1. There remains posterior location of disc spacer at L5-S1, unchanged. Prominent reactive endplate changes are present most severe at L4-5 and L5-S1. There are no acute osseous fractures or dislocations within the spine. Old appearing left rib fracture is noted.. No suspicious osseous lesions. Prominent disc space narrowing remains present at L5-S1. There is trace retrolisthesis of L1 on L2, L2 on L3. Borderline trace anterolisthesis is present at L4 on L5, unchanged. All hardware is intact. There is mild appearance of periprosthetic lucency within the pedicular portion of the right fixation screw at L2 bilateral L3 and L4, as well as bilateral S1 screws. These are unchanged. Disc bulges are present at L1-L2, L2-3, L3-4, L4-5 with appearance of partial previously noted extrusion remaining present with large calcified portion extending into L5-S1 surgically removed as noted on most recent prior exam. There is jejs-se-begaixvi spinal stenosis at L2-3, mild L3-4. Mild left foraminal narrowing L1-L2, moderate bilateral L2-3, mild right, moderate left L3-4, severe bilateral L4-5. There is compromise of the left foramina secondary to posterior located disc spacer, unchanged. Moderate left foraminal narrowing is present at L5-S1. Soft tissues: No retroperitoneal masses or hematomas. Visualized aorta is normal in caliber. Calcifications are present within the uterus suggestive of fibroid. IMPRESSION: 1. Extensive postsurgical and degenerative changes as above. 2. No definitive areas of new osseous or hardware fracture are identified. Prominent artifact is noted. Dictated by: Elsa Martinez M.D. on 04/28/2021 at 12:14 Approved by: Elsa Martinez M.D. on 04/28/2021 at 13:48
[2021-04-28] MEDS: diazePAM 5 MG TABLET 10 MG PO (12:01)
[2021-04-28] MEDS: KETOROLAC 30 MG/ML VIAL 15 MG IV (12:01)
[2021-04-28 12:40] VITALS: PULSE 80; O2SAT 93
[2021-04-28 12:41] VITALS: BP 101/57; PULSE 80; O2SAT 93; O2SAT 94
[2021-04-28 12:42] VITALS: BP 101/57; PULSE 80; RESP 16; O2SAT 94
[2021-04-28 14:33] VITALS: BP 116/81; PULSE 83; O2SAT 95
== END 2021-04-28 14:33 | disposition home or self-care (01) ==
PROVIDERS: Emergency Provider Emergency Medicine; PCP Family Medicine
DX: M54.50 Low back pain, unspecified (principal); W19.XXXA Unspecified fall, initial encounter; R20.0 Anesthesia of skin
CPT/HCPCS: 72131; 96374; 99284; J1885

== ENCOUNTER → 2021-10-25 12:03 | Outpatient (CLI) | payer MEDICARE, MEDICAID, SELFPAY ==
[2019-07-03 19:00] VITALS: BMI 37.9
--- NOTE | 2021-10-25 12:07 | DI.CT.S_ITS ---
PROCEDURE: CT THORACIC SPINE WO CON INDICATIONS: RIGHT LEG WEAKNESS TECHNIQUE: Noncontrast 3 mm thick sections acquired through the region of interest in the thoracic spine. Sagittal and coronal reformats were then constructed. For radiation dose reduction, the following was used: automated exposure control. COMPARISON: [facility], CT, CT THORACIC SPINE WITHOUT CONTRAST, 08/02/2021, 17:18. [facility], CR, XR THORACIC SPINE 2 VIEWS, 08/19/2021, 15:00. [facility], CT, CT LUMBAR SPINE WO CON, 10/25/2021, 12:15. [facility], MR, MR THORACIC SPINE WITH/WITHOUT CONTRAST, 08/02/2021, 14:51. FINDINGS: Image quality: Excellent. Bones: No suspicious sclerotic or lytic bony lesions. Extensive thoracolumbar fixation hardware is seen. The screws appear well placed. Vertical fixation rods are seen. Disc spacers can be seen inferiorly. No findings of hardware failure or hardware loosening are seen. T5 and T6 vertebroplasty cement can be seen. Chronic fractures are seen involving several levels, including T5-T6, and T9. Levoconvex thoracolumbar scoliosis is seen. Accentuated thoracic kyphosis is seen. Thoracic spine degenerative changes are seen throughout, which are similar to the prior. Relatively extensive lower cervical spine degenerative changes can be seen. Soft tissues: No paravertebral masses or hematomas. Mild scattered ground-glass opacities can be seen within the lungs. Lower neck clips are seen. There is a right-sided central line partially seen. Atherosclerotic calcification is noted, including involving the coronary arteries. IMPRESSION: Chronic fractures are seen, without acute fractures. T5 and T6 vertebroplasty cement. Extensive postoperative hardware, without significant change. Dictated by: Jorge Giraldo M.D. on 10/25/2021 at 15:29 Approved by: Jorge Giraldo M.D. on 10/25/2021 at 15:33
--- NOTE | 2021-10-25 12:07 | DI.CT.S_ITS ---
PROCEDURE: CT LUMBAR SPINE WO CON INDICATIONS: RIGHT LEG WEAKNESS TECHNIQUE: Noncontrast 3 mm thick sections acquired from the T12 level to the sacrum. Sagittal and coronal reformats were constructed. For radiation dose reduction, the following was used: automated exposure control. COMPARISON: [facility], CT, CT LUMBAR SPINE WITHOUT CONTRAST, 07/18/2021, 21:34. [facility], MR, MR LUMBAR SPINE WITH/WITHOUT CONTRAST, 07/19/2021, 7:34. [facility], CR, XR LUMBAR SPINE FLEXION EXTENSION, 07/20/2021, 15:59. [facility], CT, CT THORACIC SPINE WO CON, 10/25/2021, 12:15. [facility], CT, CT LUMBAR SPINE WO CON, 04/28/2021, 11:40. FINDINGS: Image quality: There is artifact associated with the metallic hardware. Bones: No acute vertebral body compression fractures. No suspicious lytic or blastic bony lesions. No pars defects. Extensive thoracolumbar fixation hardware is seen, extending to S1. The screws appear well placed. Multiple levels of disc spacers can be seen. The L5-S1 disc spacer is posteriorly located, as on series 2, image 59 and on series 6, image 38. There is mild lucency seen surrounding the S1 screws. No other findings of hardware failure or hardware loosening can be seen. There has been removal of portions of the posterior elements. Minimal retrolisthesis is seen at L1-L2 and L2-L3. Minimal anterolisthesis is seen at L4-L5 and at L5-S1. Mild dextroconvex scoliotic curvature is seen. T11-T12: Moderate loss of disc height is seen. Vacuum disc phenomenon is seen at this level. No significant neural foraminal or central canal narrowing can be seen. T12-L1: Moderate loss of disc height is seen. No significant neural foraminal or central canal narrowing can be seen. L1-L2: The disc height is well preserved. No significant neural foraminal or central canal narrowing can be seen. L2-L3: The disc height is relatively well preserved. Mild generalized disc bulge is seen. There is mild left-sided and no significant right-sided neural narrowing. No significant central canal narrowing is seen. L3-L4: The disc height is well preserved. Mild generalized disc bulge is seen. No significant neural foraminal or central canal narrowing can be seen. L4-L5: The disc height is well preserved. Moderate to prominent disc bulge is seen. There is a superimposed central disc protrusion. Calcification can be seen along the posterior aspect of the annulus fibrosus. At least moderate facet hypertrophy is seen. There is at least moderate bilateral neural foraminal narrowing. No significant central canal narrowing is seen. L5-S1: At least moderate disc bulge is seen. There is moderate to severe right-sided neural foraminal narrowing and minimal left-sided neural foraminal narrowing. Mild overall central canal narrowing is seen. Soft tissues: No retroperitoneal masses or hematomas. Visualized aorta is normal in caliber. Atherosclerotic calcification is noted. IMPRESSION: Extensive postoperative hardware is seen. Mild lucency is seen adjacent to the S1 screws, which is consistent with loosening change. The L5-S1 disc spacer is posteriorly located. Multiple levels degenerative change are seen, which are worst inferiorly. These appear similar to the prior. Dictated by: Jorge Giraldo M.D. on 10/25/2021 at 15:21 Approved by: Jorge Giraldo M.D. on 10/25/2021 at 15:28
== END ==
PROVIDERS: PCP Nurse Practitioner Family; Referring Provider Orthopaedic Surgery; Visit Provider Orthopaedic Surgery
DX: R29.898 Other symptoms and signs involving the musculoskeletal system (principal); Z98.1 Arthrodesis status; M47.816 Spondylosis without myelopathy or radiculopathy, lumbar region
CPT/HCPCS: 72128; 72131